=== PATIENT | female | born 1970 | race Caucasian/White ===

== ENCOUNTER 2017-11-12 16:49 | Emergency (ER) | payer MEDICARE, SELFPAY ==
[2017-11-12 16:50] VITALS: BP 95/79; PULSE 111; RESP 18; TEMP 36.3; O2SAT 99; BMI 38.2
--- NOTE | 2017-11-12 17:13 | ED.DCSUM_ITS ---
- ER Visit Summary Date of Service: 11/12/17 Chief Complaint: Left foot injury History of Present Illness: The patient is a 47 F presents to the emergency department with left foot injury. Patient states a few weeks ago, she was walking. She felt something pop in her foot. Since then, she said shooting pains in the top of her foot up the side of her leg. She states she has taken Aleve with little improvement. She does have a history of neuropathy. She did not fall. She denies other injury. She has no history of DVT. She denies any leg swelling or shortness of breath. Physical Examination: Exam is relatively unremarkable. Patient does have some slight ecchymosis on the dorsum of the foot over the fifth metatarsal. Pulses are normal. Sensation is diminished which is chronic given history of neuropathy. There is no ulceration. Calves are nontender. There is no swelling. There is no palpable cords. Test Results: [] Emergency Department Course and Treatment: Plain films were obtained of the foot. There is no evidence of acute fracture. There is questionable foreign body in between the first and second web space. I did reevaluate the skin. There is no evidence of puncture. There is no tenderness to palpation. The patient cannot recall any trauma. Without evidence of infection in definitive puncture, I do not feel it prudent to date through the patient's foot to evaluate for foreign body. I am going to have the patient follow-up with podiatry for reevaluation. She will be discharged with antispasmodics. She is comfortable this plan of care. Treatment Plan: [] Disposition: Discharge Impression: Left Foot sprain This note was generated with [employer] dictation software. It may contain incorrect words, spelling, and punctuation that were not noted in review of the chart prior to signing ED Disposition - Plan for ED Patient: Chief Complaint: Lower Extremity Injury Instructions: ED Sprain Foot Prescriptions: Cyclobenzaprine [Flexeril] 10 mg PO TID PRN #20 tab PRN Reason: Muscle Spasm Referrals: Duglas Mustafa DPM [STAFF PHYSICIAN] -
[2017-11-12 18:17] VITALS: PULSE 87; RESP 16; O2SAT 99
== END 2017-11-12 18:18 | disposition home or self-care (01) ==
PROVIDERS: Emergency Provider Emergency Medicine; Family Provider Family Medicine; PCP Family Medicine
DX: S93.602A Unspecified sprain of left foot, initial encounter (principal); X58.XXXA Exposure to other specified factors, initial encounter; Y93.01 Activity, walking, marching and hiking; Y92.9 Unspecified place or not applicable; Y99.9 Unspecified external cause status; G62.9 Polyneuropathy, unspecified; J44.9 Chronic obstructive pulmonary disease, unspecified; Z72.0 Tobacco use
CPT/HCPCS: 73630; 99282

== ENCOUNTER 2018-01-08 21:28 | Emergency (ER) | payer SELFPAY ==
[2018-01-08 21:29] VITALS: BP 107/82; PULSE 108; RESP 20; TEMP 36.6; O2SAT 98; BMI 38.1
[2018-01-08 21:50] LABS: Mucous, Urine 0 SEEN /hpf (<or=2+); Red Blood Cells-Urine 0 SEEN /hpf (0-5)
[2018-01-08 21:51] LABS: Color, Urine Yellow (Yellow); Glucose, Dipstick Normal (Normal); Ketone-Dipstick Negative (Negative); Leukocyte Esterase-Dipstick 100 /ul (Negative); Nitrite-Dipstick Negative (Negative); Occult Blood-Urine Negative /ul (Negative); Protein-Dipstick 15 mg/dl (Negative); Specific Gravity, Urine 1.025 (1.002-1.030); Urine Bilirubin Dipstick Negative (Negative); Urine Clarity Cloudy (Clear); Urine Urobilinogen 1 mg/dl (Normal)
[2018-01-08 21:57] LABS: Bacteria 2+ /hpf (None Seen); Squamous Epithelial Cells - UA 0-5 SEEN /hpf (5-10); White Blood Cells 0-5 SEEN /hpf (0-5)
--- NOTE | 2018-01-08 22:17 | CT_ITS ---
STUDY: CT ABDOMEN AND PELVIS WITHOUT CONTRAST REASON FOR EXAM: Female, 47 years old. Left flank pain RADIATION DOSAGE (If Supplied By Facility): CTDIvol = ( 18.00 ) mGy, DLP = ( 894.71 ) mGycm TECHNIQUE: Transaxial images were obtained from the lower chest to the upper thighs without oral contrast, and without intravenous contrast. Sagittal and coronal images were reconstructed. Individualized dose optimization techniques were used for this CT. COMPARISON: None. FINDINGS: The visualized lung bases are unremarkable. There is no pleural effusion. The heart is normal in size. The liver is unremarkable. The gallbladder is contracted. The spleen is unremarkable. The pancreas is unremarkable. The adrenal glands are unremarkable. The right kidney is unremarkable. There is no dilatation of the collecting system in the right kidney. The left kidney is unremarkable. There is no dilatation of the collecting system in the left kidney. The stomach is unremarkable. The small bowel is unremarkable. The colon is unremarkable. The appendix is visualized and appears normal. There are minimal scattered vascular calcifications. The IVC is unremarkable. The retroperitoneum is unremarkable. There is no free fluid in the abdomen. The urinary bladder is unremarkable. There is questionable absence of the uterus. Air is present in the cervix. There are no abnormal masses in the adnexal regions. There are small phleboliths scattered in the lower pelvis. The soft tissues are unremarkable. There are moderate degenerative disc changes in the low lumbar spine. CT/Abdomen/Pelvis without Cont IMPRESSION: There is no evidence of renal stones or urinary tract dilatation bilaterally. There are no acute bowel abnormalities. There is no ascites, free air or significant lymphadenopathy. There is air in the cervix of unknown etiology or significance. Correlate with possible recent intervention. The uterus appears absent. Electronically Signed: Kayla Raygoza MD at 0:36 EDT Tel Direct: [phone], Service support ,
--- NOTE | 2018-01-08 22:17 | EKG12_ITS ---
Test Reason : GEN ILL Blood Pressure : / mmHG Vent. Rate : 071 BPM Atrial Rate : 071 BPM P-R Int : 156 ms QRS Dur : 098 ms QT Int : 408 ms P-R-T Axes : 050 -20 041 degrees QTc Int : 443 ms Normal sinus rhythm Leftward axis Incomplete right bundle branch block Borderline ECG Confirmed by FATOUMATA CADE, AUDELIA ([id number]), editor continuity and script MIKEY VAUGHAN ([id number]) on 01/11/2018 11:20:53 AM Referred By: RUSSELL Confirmed By:AUDELIA HAM MD
[2018-01-08] MEDS: Ketorolac 30 MG/ML Syringe IV (22:48)
[2018-01-08] MEDS: Ondansetron 4 MG/2 ML Vial IV (22:48)
[2018-01-08 22:54] LABS: Absolute Lymphocyte Count 2.94 X10^3/ul (0.83-4.51); Absolute Neutrophil Count 6.2 X10^3/uL (2.0-7.7); Basophil# 0.02 X10^3/uL; Basophil% 0.2 % (0-1); Eosinophil# 0.28 X10^3/uL; Eosinophils% 2.8 % (0-5); Hematocrit 43.5 % (37-47); Hemoglobin 14.7 g/dl (12.0-15.0); Lymphocyte # 2.94 X10^3/ul (4.0); Lymphocyte % 29.3 % (19-41); Mean Corp Hgb Conc 33.8 g/gl (32-36); Mean Corpuscular Hgb 32.2 pg (27.0-32.0); Mean Corpuscular Volume 95.2 fL (81-99); Mean Platelet Vol. 10.8 fl (6.2-12.0); Monocyte# 0.54 X10^3/uL; Monocyte% 5.4 % (0-10); Neutrophil # 6.23 X10^3/uL (2.7-7.7); Neutrophil % 61.9 % (47-70); Platelet Count 266 K/mm3 (150-450); RBC Distribution Width CV 13.2 % (11.6-14.6); RBC Distribution Width SD 45.8 fl (35.1-43.9); Red Blood Count 4.57 M/mm3 (4.2-5.4); White Blood Count 10.1 K/mm3 (4.4-11.0)
[2018-01-08 22:55] LABS: POSITIVE COUNT NO; POSITIVE DIFFERENTIAL NO; POSITIVE MORPHOLOGY NO
[2018-01-08 23:06] LABS: Anion Gap 6 (5-15); BUN 17 mg/dL (7-18); BUN/Creat Ratio 15.5 RATIO (10-20); Calcium,Total 9.1 mg/dL (8.5-10.1); Chloride 105 mmol/L (98-107); EST Glomerular Filtration Rate 56 mL/min (>60); Est Glom Filt Rate - Afr Amer 68 mL/min (>60); Estimated Creatinine Clearance 53.42 ml/min; Glucose 101 mg/dL (74-106); Potassium 3.6 mmol/L (3.5-5.1); Sodium Level 139 mmol/L (136-145)
--- NOTE | 2018-01-08 23:30 | ED.RN ---
PT STATES TORADOL DID NOT HELP WITH PAIN AND IS REQUESTING OTHER PAIN MEDICATION. DR. WELLS AWARE.
[2018-01-08 23:37] VITALS: BP 103/70; PULSE 89; RESP 16; O2SAT 99
[2018-01-08 23:57] VITALS: BP 103/70; BP 104/71; BP 105/68; PULSE 77; PULSE 80; PULSE 81
--- NOTE | 2018-01-08 23:58 | ED.RN ---
PT VERY FRUSTRATED AND NOT COOPERATIVE WITH CARE STATING I SHOULD'VE NEVER COME HERE. PT REQUESTING SOMETHING TO DRINK. EXPLAINED TO PT THAT SHE IS NPO UNTIL CT RESULT IS AVAILABLE AND DOCTOR CLEARS HER TO EAT AND DRINK. PT DOES NOT VERBALIZE AN UNDERSTANDING AND IS CLEARLY VERY FRUSTRATED. DR. WELLS MADE AWARE.
--- NOTE | 2018-01-09 00:28 | ED.DCSUM_ITS ---
- ER Visit Summary Date of Service: 01/09/18 Chief Complaint: Dizziness, abdominal pain, nausea vomiting and diarrhea History of Present Illness: The patient is a 47 F who presents with dizziness abdominal pain nausea vomiting and diarrhea. She complains of abdominal pain in the left lower abdomen and radiating up to her left upper abdomen and back for about 2 weeks. She also complains of intermittent nausea vomiting diarrhea. She states that if she is just vomiting gastric juices. She is having more dry heaving than actual emesis. Today she began to feel dizzy. She describes this more as feeling off balance like vertigo. She denies syncope. No chest pain shortness of breath or fevers. Physical Examination: Initial heart rate 108 vitals otherwise normal Patient resting comfortably in bed Moist mucous membranes Heart regular rate and rhythm Lungs are clear Abdomen soft nondistended she does have left-sided abdominal tenderness which is greatest in the lower quadrant there is no guarding or rebound Test Results: EKG shows sinus rhythm at a rate of 71 with a right bundle branch block. CBC BMP normal. Urinalysis shows 100 leukocyte esterase but no WBCs. Orthostatic vital signs were negative. CT of the abdomen and pelvis showed air in the cervix of uncertain significance but no other acute abnormality no acute bowel abnormality. Hepatic function lipase are pending. Emergency Department Course and Treatment: Patient was initially treated with IV fluids Toradol and Zofran. I was notified by nursing staff that she was continued to complain of significant pain and requesting something further. At the time my reevaluation she is resting comfortably. Her abdomen remains soft. She does still have some left lower abdominal tenderness. I did add on hepatic function lipase given that CT of the abdomen does not show diverticulitis or another explanation of the patient's left lower quadrant abdominal pain. Patient turned over to the oncoming physician to check these lab results but if normal the patient will be discharged. Treatment Plan: [] Disposition: Pending hepatic function lipase results. Impression: Abdominal pain Dizziness This note was generated with [employer] dictation software. It may contain incorrect words, spelling, and punctuation that were not noted in review of the chart prior to signing ED Disposition - Plan for ED Patient: Chief Complaint: General Illness Referrals: Bird Dietrich MD [Primary Care Provider] -
[2018-01-09] MEDS: Morphine 4 MG/ML Syringe IV (00:35)
[2018-01-09 00:39] LABS: AST(SGOT) 8 U/L (15-37); Alanine Aminotransfer ALT/SGPT 15 U/L (13-56); Albumin, Serum 3.9 g/dL (3.2-5.0); Alkaline Phosphatase 81 U/L (45-117); Globulin 3.6 g/dL (2.2-4.2); Protein, Total 7.5 g/dL (6.4-8.2)
--- NOTE | 2018-01-09 00:40 | ED.DEP ---
ED Disposition - Plan for ED Patient: Chief Complaint: General Illness Instructions: ED Abdominal Pain Unkn Cause, ED Dizziness [facility] Referrals: Bird Dietrich MD [Primary Care Provider] -
[2018-01-09 00:47] LABS: Lipase 239 U/L (73-393)
--- NOTE | 2018-01-09 00:55 | ED.RN ---
PT MORPHINE GIVEN IV PUSH BY THIS RN, UNABLE TO DOCUMENT ON THE COMPUTER DUE TO USER ISSUE. WILL CORRECT SOON POSSIBLE.
[2018-01-09 01:00] VITALS: BP 130/92
== END 2018-01-09 01:01 | disposition home or self-care (01) ==
LOC: ED 22:25
PROVIDERS: Emergency Provider Emergency Medicine; Family Provider Family Medicine; PCP Family Medicine
DX: R10.32 Left lower quadrant pain (principal); R42 Dizziness and giddiness; I45.10 Unspecified right bundle-branch block; R11.2 Nausea with vomiting, unspecified; R19.7 Diarrhea, unspecified; J45.909 Unspecified asthma, uncomplicated; Z72.0 Tobacco use
CPT/HCPCS: 74176; 80048; 80076; 81001; 83690; 85025; 93005; 96374; 96375; 99285; A4216; J2405

== ENCOUNTER 2019-09-26 13:58 | Emergency (ER) | payer MEDICARE, MEDICAID, SELFPAY ==
[2019-09-26 13:59] VITALS: BP 145/89; PULSE 98; RESP 15; TEMP 36.6; O2SAT 97; BMI 40.4
--- NOTE | 2019-09-26 15:04 | ED.DCSUM_ITS ---
History of Present Illness Chief Complaint: Sore Throat Informant: Patient Narrative: Patient is a 49-year-old female with a past medical history of COPD who presents to the emergency department for multiple complaints. She felt like she has had a hoarse voice over the past year. No significant change recently that brought her in. She denies any difficulty handling secretions or swallowing solids. No shortness of breath or chest pain associated with it. No fevers or chills. She is a current every day smoker. He is also presenting for skin lesions. The worst is on the lower right rogers. He states that this has been itchy and she has been scratching at it. She also had a few lesions on her abdomen and also her buttocks. She states that they are in multiple stages of healing. She denies scratching at them. She tried Neosporin as well as a spray which has not been giving significant relief. No one else has a similar rash in the family. These have also been present for approximately a year. She also is requesting a note for an air conditioner as she feels like the heat is causing her to be more short of breath with her COPD. She does have a chronic cough that is no worse than normal. Denies any sputum production. Past Medical History - Allergies and Home Meds Allergies/Adverse Reactions: Allergies tramadol Allergy (Verified 09/26/19 14:03) Itching gabapentin Adverse Reaction (Verified 09/26/19 14:03) Nausea metronidazole [From Flagyl] Adverse Reaction (Verified 09/26/19 14:03) Upset Stomach Primary Care Physician: Bird Dietrich MD [Primary Care Provider] - Prior records reviewed: Yes Past Medical History: - - COPD Surgical History: - - surgery on her neck in 1990 or fracture of C6-7. has also had surgery on her wrist. Smoking Status: Current every day smoker Alcohol: None Drugs: None - Family History Maternal Family History: Reports: - - sttes her mother is still alive....denies hx of CAD Review of Systems All systems negative except as indicated General: Denies: Chills, Fever, Sweats Eyes: Denies: Visual changes - bilaterally, Diplopia ENT: Reports: Sore throat. Denies: Bilateral ear pain, Rhinorrhea Cardiovascular: Denies: Chest pain, Palpitations Respiratory: Denies: Dyspnea, Cough, Dyspnea on exertion Gastrointestinal: Denies: Abdominal pain, Nausea, Vomiting, Diarrhea Genitourinary: Denies: Dysuria, Hematuria, Frequency Musculoskeletal: Denies: Back pain, Extremity Pain Skin: Reports: Wounds. Denies: Rash Neurological: Denies: Headache, Weakness, Numbness Physical Exam Vital Signs/Narrative: Vital Signs Temp Pulse Resp BP Pulse Ox 09/26/19 13:59 97.9 F 98 15 145/89 H 97 Inital Vital Signs reviewed: Yes General: Well nourished, Well developed, No Acute Distress Head: Normocephalic, Atraumatic Eyes: Perrl, EOMI ENT: Moist mucous membranes, No rhinorrhea, TM's clear, - - Oropharynx is clear and moist. No mass or abscess visible. No crepitus on palpation. No obvious mass on palpation. No lymphadenopathy. Patient does have a slightly hoarse voice but has good laminar airflow. Neck: Supple, Nontender Cardiovascular: Regular rate, Regular rhythm, No murmurs Respiratory: No distress, CTA bilaterally, Chest nontender Abdomen: Soft, Nontender, Nondistended, Normal bowel sounds Back: Nontender, Normal Inspection Extremities: Nontender, No edema Skin: Normal color, - - Superficial ulcer to right anterior rogers. There are other well-healed areas over the abdomen and back. No drainage present. No overlying cellulitis. No sloughing of skin or petechiae present. Neurological: Alert, Oriented x3, Cranial nerves II-XII grossly intact, Normal Strength, Normal Sensation Psychological: Normal affect, Normal Mood Diagnostic/Tx/Re-eval - Medical Decision Making Patient presents to the emerge department for multiple complaints which have both been present over the past year. She does have a slightly hoarse voice but no issues handling secretions or swallowing. She has not any shortness of breath. We will make a referral for ear nose and throat given the chronicity of her symptoms. I do not believe that this is infectious. Could be related to her smoking history. As per the lesions on her lower extremity. Will recommend a mupirocin ointment. He is to follow-up with her PCP about both of these issues. If she develops any systemic symptoms she is to return to the emerge department immediately. She understands and is agreeable this plan. Will discharge home in stable condition. ED Disposition - Plan for ED Patient: Disposition: Home or Assisted Living Diagnosis: Hoarse voice quality, Skin lesion Instructions: ED Laryngitis Prescriptions: Mupirocin [Bactroban] 1 applic TOPICAL TID #1 tube Transmission Status: Pending to [facility] Referrals: Bird Dietrich MD [Primary Care Provider] - 3-5 Days Jake Jo MD [STAFF PHYSICIAN] - 3-5 Days
--- NOTE | 2019-09-26 15:26 | ED.RN ---
INFO GIVEN REGARDING COMMUNITY ACTION, PT REQUESTING ASSISTANCE WITH OBTAINING AN AIR CONDITIONER.
--- NOTE | 2019-09-26 19:35 | CM.ED ---
Social Work Referral obtained for community services. Resources provided to nursing staff as patient did not want to wait and speak with this director of social services. Per nursing staff patient states to be aware of how to obtain an A/C in the community and to be seeking a prescription. Nursing staff stating to have educated patient that patient will need to speak with primary care physician for this request. Elaine FARIAS, ANITA
== END 2019-09-26 15:28 | disposition home or self-care (01) ==
PROVIDERS: Emergency Provider Emergency Medicine; PCP Family Medicine
DX: L98.9 Disorder of the skin and subcutaneous tissue, unspecified (principal); R49.0 Dysphonia; J44.9 Chronic obstructive pulmonary disease, unspecified; F17.200 Nicotine dependence, unspecified, uncomplicated; Z88.1 Allergy status to other antibiotic agents; Z88.5 Allergy status to narcotic agent; Z88.8 Allergy status to other drugs, medicaments and biological substances
CPT/HCPCS: 99283

== ENCOUNTER 2019-10-10 18:54 | Emergency (ER) | payer MEDICARE, MEDICAID, SELFPAY ==
[2019-10-10 18:55] VITALS: BP 141/102; PULSE 96; RESP 18; TEMP 36.6; O2SAT 96; BMI 40.8
[2019-10-10 19:00] VITALS: BP 141/102; PULSE 96; RESP 18; TEMP 36.6; O2SAT 96
[2019-10-10] MEDS: Carbamide Peroxide 15 ML Bottle 5 DRP OTIC (19:05)
--- NOTE | 2019-10-10 19:09 | ED.VIS.GEN ---
History of Present Illness Chief Complaint: Ear Problem Informant: Patient Onset: Today Context: Sudden Onset Timing: Continuous Current Severity: Mild Maximum Severity: Mild Narrative: The patient is a 49-year-old female presents to the emergency department with wax impaction. Patient states that she had some wax in her ear. She was trying to remove it with a Q-tip. She ended up impacting the wax and has pushed it in. She states that she is been having decreased hearing. She denies any pain. Prior similar symptoms: No Recent Illness/Hospitalization: No Past Medical History - Allergies and Home Meds Allergies/Adverse Reactions: Allergies tramadol Allergy (Verified 10/10/19 18:56) Itching gabapentin Adverse Reaction (Verified 10/10/19 18:56) Nausea metronidazole [From Flagyl] Adverse Reaction (Verified 10/10/19 18:56) Upset Stomach Primary Care Physician: Bird Dietrich MD [Primary Care Provider] - Prior records reviewed: Yes Past Medical History: None Surgical History: - - surgery on her neck in 1990 or fracture of C6-7. has also had surgery on her wrist. Smoking Status: Current every day smoker - Family History Maternal Family History: Reports: - - sttes her mother is still alive....denies hx of CAD Review of Systems General: Denies: Chills, Fever, Sweats Eyes: Denies: Visual changes - bilaterally, Diplopia ENT: Reports: Right ear pain. Denies: Rhinorrhea, Sore throat Cardiovascular: Denies: Chest pain, Palpitations Respiratory: Denies: Dyspnea, Cough, Dyspnea on exertion Gastrointestinal: Denies: Abdominal pain, Nausea, Vomiting, Diarrhea, Melena, Hematochezia Genitourinary: Denies: Dysuria, Hematuria, Frequency Musculoskeletal: Denies: Back pain, Extremity Pain Skin: Denies: Rash, Wounds Neurological: Denies: Headache, Weakness, Numbness Physical Exam Vital Signs/Narrative: Vital Signs Temp Pulse Resp BP Pulse Ox 10/10/19 19:00 97.8 F 96 18 141/102 H 96 10/10/19 18:55 97.8 F 96 18 141/102 H 96 Inital Vital Signs reviewed: Yes General: Well nourished, Well developed, No Acute Distress Head: Normocephalic, Atraumatic Eyes: Perrl, EOMI ENT: Moist mucous membranes, No rhinorrhea, - - Right TM is impacted with cerumen. No mastoid tenderness. Neck: Supple, Nontender Cardiovascular: Regular rate, Regular rhythm, No murmurs Respiratory: No distress, CTA bilaterally, Chest nontender Abdomen: Soft, Nontender, Nondistended, Normal bowel sounds Back: Nontender, Normal Inspection Extremities: Nontender, No edema Skin: Normal color, No rash Neurological: Alert, Oriented x3, Cranial nerves II-XII grossly intact, Normal Strength, Normal Sensation Psychological: Normal affect, Normal Mood Diagnostic/Tx/Re-eval - Medical Decision Making Patient presents with cerumen impaction. Debrox was instilled in the ear. It was irrigated. The impaction was able to be removed. Ear was reexamined. TM is normal. The patient will be discharged home. Impression 1. Right cerumen impaction ED Disposition - Plan for ED Patient: Instructions: ED Cerumen Impaction Treated Referrals: Bird Dietrich MD [Primary Care Provider] -
== END 2019-10-10 19:56 | disposition home or self-care (01) ==
LOC: ED 19:48
PROVIDERS: Emergency Provider Emergency Medicine; PCP Family Medicine
DX: H61.21 Impacted cerumen, right ear (principal); F17.200 Nicotine dependence, unspecified, uncomplicated
CPT/HCPCS: 99283

== ENCOUNTER 2019-10-26 10:02 | Emergency (ER) | payer MEDICARE, MEDICAID, SELFPAY ==
[2019-10-24 14:39] VITALS: BMI 40.8
[2019-10-26 10:03] VITALS: BP 122/56; PULSE 69; RESP 15; TEMP 36.4; O2SAT 94; BMI 41.1
--- NOTE | 2019-10-26 10:35 | ED.DCSUM_ITS ---
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 Patient was seen in the outpatient surgical center 2 days ago. She is actually scheduled for endoscopy and colonoscopy due to reported blood in stool. She states that she normally takes Zofran. She states she had to leave work yesterday because she was not feeling herself. She states that she was nauseated and 2 episodes of emesis. She went to sleep, but woke up today and was still feeling symptomatic. She tried her Zofran again with little relief. She denies abdominal pain. She denies any fevers or chills. 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 has also had surgery on her wrist. Smoking Status: Current every day smoker - Family History Maternal Family History: Family History (Last Updated 10/24/19 @ 14:34 by Solange Carpenter) Father Hypertension Family History: Reports: - - sttes her mother is still alive....denies hx of CAD Review of Systems General: Denies: Chills, Fever, Sweats Eyes: Denies: Visual changes - bilaterally, Diplopia ENT: Denies: Rhinorrhea, Sore throat Cardiovascular: Denies: Chest pain, Palpitations Respiratory: Denies: Dyspnea, Cough, Dyspnea on exertion Gastrointestinal: Reports: Nausea, Vomiting. Denies: Abdominal pain, Diarrhea, Melena, Hematochezia Genitourinary: Denies: Dysuria, Hematuria, Frequency Musculoskeletal: Denies: Back pain, Extremity Pain Skin: Denies: Rash, Wounds Neurological: Denies: Headache, Weakness, Numbness Physical Exam Vital Signs/Narrative: Vital Signs Temp Pulse Resp BP Pulse Ox 10/26/19 10:03 97.5 F L 69 15 122/56 H 94 Inital Vital Signs reviewed: Yes General: Well nourished, Well developed, No Acute Distress Head: Normocephalic, Atraumatic Eyes: Perrl, EOMI ENT: Moist mucous membranes, No rhinorrhea Neck: Supple, Nontender Cardiovascular: Regular rate, Regular rhythm, No murmurs Respiratory: No distress, CTA bilaterally, Chest nontender Abdomen: Soft, Nontender, Nondistended, Normal bowel sounds Back: Nontender, Normal Inspection Extremities: Nontender, No edema Skin: Normal color, No rash Neurological: Alert, Oriented x3, Cranial nerves II-XII grossly intact, Normal Strength, Normal Sensation Psychological: Normal affect, Normal Mood Diagnostic/Tx/Re-eval Abnormal Lab Results 10/26/19 10/26/19 10/26/19 10:23 11:00 11:00 WBC 6.8 RBC 4.16 L Hgb 13.4 Hct 39.2 MCV 94.2 MCH 32.2 H MCHC 34.2 RDW Std Deviation 43.4 RDW Coeff of Brigid 12.5 Plt Count 229 MPV 10.9 Immature Gran % (Auto) 0.400 Neut % (Auto) 59.5 Lymph % (Auto) 32.0 [place] % (Auto) 5.6 Eos % (Auto) 1.9 Baso % (Auto) 0.6 Absolute Neuts (auto) 4.0 Absolute Lymphs (auto) 2.17 Nucleated RBC % 0 Sodium Cancelled Potassium Cancelled Chloride Cancelled Carbon Dioxide Cancelled Anion Gap Cancelled BUN Cancelled Creatinine Cancelled Estim Creat Clear Calc Cancelled Est GFR (MDRD) Af Amer Cancelled Est GFR (MDRD) Non-Af Cancelled BUN/Creatinine Ratio Cancelled Glucose Cancelled Calcium Cancelled Total Bilirubin Cancelled AST Cancelled ALT Cancelled Alkaline Phosphatase Cancelled Total Protein Cancelled Albumin Cancelled Globulin Cancelled Albumin/Globulin Ratio Cancelled Lipase Cancelled Urine Color Yellow Urine Clarity Sl. Cloudy Urine pH 6.0 Ur Specific [place] 1.010 Urine Protein Negative Urine Glucose (UA) Normal Urine Ketones Negative Urine Occult Blood Negative Urine Nitrite Negative Urine Bilirubin Negative Urine Urobilinogen Normal Ur Leukocyte Esterase Negative Urine RBC 0 SEEN Urine WBC 0 SEEN Ur Squamous Epith Cells 5-10 SEEN Urine Bacteria 1+ Urine Mucus 0 SEEN 10/26/19 11:45 WBC RBC Hgb Hct MCV MCH MCHC RDW Std Deviation RDW Coeff of Brigid Plt Count MPV Immature Gran % (Auto) Neut % (Auto) Lymph % (Auto) [place] % (Auto) Eos % (Auto) Baso % (Auto) Absolute Neuts (auto) Absolute Lymphs (auto) Nucleated RBC % Sodium 142 Potassium 3.7 Chloride 114 H Carbon Dioxide 23.0 Anion Gap 5 BUN 9 Creatinine 0.78 Estim Creat Clear Calc 73.68 Est GFR (MDRD) Af Amer 101 Est GFR (MDRD) Non-Af 83 BUN/Creatinine Ratio 11.6 Glucose 89 Calcium 8.7 Total Bilirubin 0.30 AST 12 L ALT 22 Alkaline Phosphatase 81 Total Protein 6.8 Albumin 3.7 Globulin 3.1 Albumin/Globulin Ratio 1.2 Lipase 118 Urine Color Urine Clarity Urine pH Ur Specific [place] Urine Protein Urine Glucose (UA) Urine Ketones Urine Occult Blood Urine Nitrite Urine Bilirubin Urine Urobilinogen Ur Leukocyte Esterase Urine RBC Urine WBC Ur Squamous Epith Cells Urine Bacteria Urine Mucus - Medical Decision Making The patient presents with nausea and vomiting. Her abdomen is soft and nontender. Metabolic work-up was pursued. Screening labs are unremarkable. She has not had fever. On reevaluation, she is feeling improved with Phenergan. At this point, given that she is safe for outpatient therapy. I will prescribe Phenergan with her Zofran. She will be discharged home. Impression 1. Nausea vomiting ED Disposition - Plan for ED Patient: Instructions: ED Nausea Vomiting Adult Prescriptions: proMETHazine tablet [Phenergan] 25 mg PO Q6H PRN PRN #10 tab PRN Reason: Nausea Prescription Printed Referrals: Bird Dietrich MD [Primary Care Provider] -
[2019-10-26 10:39] LABS: Mucous, Urine 0 SEEN /hpf (<or=2+); Red Blood Cells-Urine 0 SEEN /hpf (0-5); White Blood Cells 0 SEEN /hpf (0-5)
[2019-10-26 10:43] LABS: Color, Urine Yellow (Yellow); Glucose, Dipstick Normal (Normal); Ketone-Dipstick Negative (Negative); Leukocyte Esterase-Dipstick Negative /ul (Negative); Nitrite-Dipstick Negative (Negative); Occult Blood-Urine Negative /ul (Negative); Protein-Dipstick Negative (Negative); Urine Bilirubin Dipstick Negative (Negative); Urine Clarity Sl. Cloudy (Clear); Urine Urobilinogen Normal (Normal)
[2019-10-26 10:53] LABS: Bacteria 1+ /hpf (None Seen); Squamous Epithelial Cells - UA 5-10 SEEN /hpf (5-10)
[2019-10-26] MEDS: proMETHazine 25 MG/ML Syringe 12.5 MG IV (11:08)
[2019-10-26] MEDS: 0.9% Normal Saline 1,000 ML 1000 ML IV (11:09)
[2019-10-26 11:19] LABS: Absolute Lymphocyte Count 2.17 X10^3/uL (0.83-4.51); Basophil# 0.04 X10^3/uL; Basophil% 0.6 % (0-1); Eosinophil# 0.13 X10^3/uL; Eosinophils% 1.9 % (0-5); Hematocrit 39.2 % (37-47); Hemoglobin 13.4 g/dL (12.0-15.0); Lymphocyte # 2.17 X10^3/ul (4.0); Mean Corp Hgb Conc 34.2 g/dL (32-36); Mean Corpuscular Hgb 32.2 pg (27.0-32.0); Mean Corpuscular Volume 94.2 fL (81-99); Mean Platelet Vol. 10.9 fl (6.2-12.0); Monocyte# 0.38 X10^3/uL; Monocyte% 5.6 % (0-10); NRBC Flagged by Analyzer 0 % (0-5); Neutrophil # 4.04 X10^3/uL (2.7-7.7); Neutrophil % 59.5 % (47-70); Platelet Count 229 K/mm3 (150-450); RBC Distribution Width CV 12.5 % (11.6-14.6); RBC Distribution Width SD 43.4 fl (35.1-43.9); Red Blood Count 4.16 M/mm3 (4.2-5.4); White Blood Count 6.8 K/mm3 (4.4-11.0)
[2019-10-26 12:03] VITALS: BP 103/67
[2019-10-26] MEDS: Ketorolac 15 MG/ML Vial IV (12:20)
[2019-10-26 12:28] LABS: ALB/GLOB Ratio 1.2 RATIO (0.9-2.4); AST(SGOT) 12 U/L (15-37); Alanine Aminotransfer ALT/SGPT 22 U/L (13-56); Albumin, Serum 3.7 g/dL (3.2-5.0); Alkaline Phosphatase 81 U/L (45-117); Anion Gap 5 (5-15); BUN 9 mg/dL (7-18); BUN/Creat Ratio 11.6 RATIO (10-20); Calcium,Total 8.7 mg/dL (8.5-10.1); Chloride 114 mmol/L (98-107); Creatinine, Serum 0.78 mg/dL (0.55-1.02); EST Glomerular Filtration Rate 83 mL/min (>60); Est Glom Filt Rate - Afr Amer 101 mL/min (>60); Estimated Creatinine Clearance 73.68 ml/min; Globulin 3.1 g/dL (2.2-4.2); Glucose 89 mg/dL (74-106); Lipase 118 U/L (73-393); Potassium 3.7 mmol/L (3.5-5.1); Protein, Total 6.8 g/dL (6.4-8.2); Sodium Level 142 mmol/L (136-145)
[2019-10-26 12:39] VITALS: BP 104/65; PULSE 62; RESP 14
== END 2019-10-26 12:51 | disposition home or self-care (01) ==
LOC: ED 12:07
PROVIDERS: Emergency Provider Emergency Medicine; PCP Family Medicine
DX: R11.2 Nausea with vomiting, unspecified (principal); J44.9 Chronic obstructive pulmonary disease, unspecified; F17.200 Nicotine dependence, unspecified, uncomplicated; Z82.49 Family history of ischemic heart disease and other diseases of the circulatory system; Z88.1 Allergy status to other antibiotic agents; Z88.5 Allergy status to narcotic agent; Z88.8 Allergy status to other drugs, medicaments and biological substances
CPT/HCPCS: 80053; 81001; 83690; 85025; 96361; 96374; 96375; 99284; J7030; A4216

== ENCOUNTER 2019-11-14 07:49 | Day surgery (SDC) | payer MEDICARE, MEDICAID, SELFPAY ==
--- NOTE | 2019-10-24 03:11 | HP_ITS ---
Intake Vital Signs 10/24/19 BMI 40.8 10/24/19 Height 5 ft 4 in 10/24/19 Weight: 240 lb 10/24/19 BMI 41.1 10/24/19 BP 105/68 10/24/19 Blood Pressure Location Rt brachial 10/24/19 Position Sitting 10/24/19 Respiration 18 10/24/19 Pulse 85 10/24/19 Pulse Source Monitor 10/24/19 Temp 97.4 F L 10/24/19 Temp Source Temporal 10/24/19 Pulse Oximetry (%) 98 10/24/19 Oxygen Delivery Method room air Intake Visit Reasons: CSCOPE/ EGD Chief Complaint: EGD/C-scope consult Gift Manager Required: No Is patient in pain?: Yes Allergies tramadol Allergy (Verified 10/24/19 14:35) Itching gabapentin Adverse Reaction (Verified 10/24/19 14:35) Nausea metronidazole [From Flagyl] Adverse Reaction (Verified 10/24/19 14:35) Upset Stomach Medications Sertraline HCl [Zoloft] 50 mg PO DAILY 09/26/19 [History Confirmed 10/24/19] acetaminophen 650 mg tablet,extended release 650 mg PO Q12H 10/24/19 [History Confirmed 10/24/19] albuterol sulfate 90 mcg/actuation aerosol inhaler 2 puff INHALATION Q4H PRN g 10/24/19 [History Confirmed 10/24/19] albuterol sulfate 90 mcg/actuation aerosol inhaler 2 puff INHALATION Q4H PRN g 10/24/19 [History Confirmed 10/24/19] fluticasone 100 mcg-salmeterol 50 mcg/dose blistr powdr for inhalation 1 inh INHALATION BID 10/24/19 [History Confirmed 10/24/19] pregabalin 50 mg capsule 50 mg PO BID 10/24/19 [History Confirmed 10/24/19] [facility] Medical History (Updated 10/24/19 @ 15:[address] Vazquez Storey MD) History of crack cocaine use (Chronic) COPD (chronic obstructive pulmonary disease) (Chronic) Smoking addiction (Chronic) Depression (Chronic) Chronic back pain (Chronic) Morbid obesity (Chronic) Chest pain (Acute) Abdominal pain (Acute) Anxiety (Acute) Arthritis (Acute) Back problem (Acute) Black tarry stools (Acute) Constipation (Acute) Diarrhea (Acute) Surgical History (Updated 10/24/19 @ 14:34 by Solange Carpenter) History of hysterectomy (Acute) History of tonsillectomy (Acute) Hx of fusion of cervical spine (Acute) Family History (Updated 10/24/19 @ 14:34 by Solange Carpenter) Father Hypertension Social History (Updated 10/24/19 @ 15:[address] Vazquez Storey MD) Smoking Status: Current every day smoker alcohol intake: never substance use type: does not use HPI HPI HPI: YUDY GRANDA, is a 49 F who presents to the office today for HPI HPI Surgical H&P: Yes HPI: YUDY GRANDA, is a 49 F who presents to the office today for several issues. The patient has been having left lower quadrant pain for about 7 years. She is never had a colonoscopy in the past. She also has constipation issues and when her constipation resolves she has uncontrollable diarrhea. Patient also reports she has been having black tarry stools for the last 2 weeks. She was taken off her PPI about a month ago by Dr. Jo. ROS General General: No weight change, appetite, fatigue, colon cancer, breast cancer or weakness HEENT HEENT: No difficulty swallowing, eye injury, eye surgery, swollen glands or hoarseness Endo Endocrine: No thyroid disease, diabetes mellitus, thyroid cancer, Hair loss, heat intolerance or cold intolerance Skin Skin: No rash or changing moles Breast Breast: No left breast lump, right breast lump, nipple discharge, breast pain, abnormal mammogram, abnormal US or breast enlargement Musc Musculoskeletal: Yes back problems and arthritis; no rheumatoid arthritis, gout or joint pain Cardio Cardiovascular: No murmur, pacemaker, heart disease, atrial fibrillation, high blood pressure, heart attack, heart stent, palpitations, shortness of breat with exertion or chest pain Psych Psychiatric: Yes depression and anxiety; no hearing voices Resp Respiratory: Yes shortness of breath, No sleep apnea, No cough, Yes COPD, No asthma, No emphysema, No wheezing Gastro Gastrointestinal: Yes abdominal pain, Yes nausea or vomiting, Yes diarrhea, Yes constipation, No blood in stool, Yes acid reflux, No hemorrhoids, No ulcers, No gallbladder problem, Yes black,tarry stools Alon Hematologic: No blood thinners, No blood disorders, No bleeding, No anemia, No blood clots Neuro Neurologic: No system reviewed and no additional complaints, except as docu, No as per HPI, No abnormal walking, No abnormal hearing, No abnormal movements, No abnormal speech, No behavioral changes, No burning sensations, No confusion, No seizure-like activity, No unsteadiness, No dizziness, No localized weakness, No frequent falls, No headache(s), No lack of coordination, No loss of vision, No memory loss, No numbness, No other visual disturbances, No radiating pain, No restless legs, No sensory deficit, No fainting, No tingling, No tremor(s), No weakness, No other Exam Const General: cooperative Orientation: alert, oriented x3 Chest Breast Palpation: No nipple discharge Resp Effort & Inspection: normal respiratory effort Auscultation: clear to auscultation bilaterally Cardio Rate: regular rate Rhythm: regular rhythm Heart Sounds: no murmurs GI Inspection: non-distended Palpation: soft, tender in the LLQ Assessment & Plan Problems 1. Constipation, unspecified constipation type K59.00 2. Black tarry stools K92.1 3. Left lower quadrant pain R10.32 4. Smoking addiction F17.200 Plan The patient has been having constipation and left lower quadrant pain. She also reports last 2 weeks she has been having black tarry stools. I believe that when she was taken off of her PPI she developed gastritis or bleeding ulcers. The patient was taken off of her PPI 1 month ago. I recommended that she restart this but she says that Dr. Jo told her it would interfere with her Lyrica. I recommend EGD and colonoscopy. I explained endoscopy in detail to the patient. I explained the risks including but not limited to stroke or heart attack with anesthesia, perforation of the GI tract, bleeding, infection. I explained that any of these could necessitate further emergency surgery. The patient understands and all questions were answered sufficiently. The patient wishes to proceed with procedure. We discussed the current risks associated with COVID-19. While it is understood that there is a community spread of COVID-19, the risk of daina COVID-19 while at [facility] ([facility]) is very low; however, the risk cannot be completely mitigated because of the community spread of the disease. We discussed in detail the risk of exposure to and/or potential harm posed by the COVID-19 virus with having a surgery/procedure at this time versus the risk of delaying the surgery/procedure. It is not possible to know either the risk of delaying the surgery or procedure or chance of getting an infection with perfect accuracy, but a joint decision was made to proceed at this time with the scheduled surgery/procedure as indicated on the consent form. Patient was notified that we will need to comply with any screening or testing [facility] wishes to perform or that surgery may be delayed for any positive results. Vazquez Storey MD Pager: [facility] [address] [place] [address], [address] [place] [address] Office: Orders Orders: Colonoscopy Today K59.00, R10.32 EGD Today K92.1 Coding Level of Care Code Off vis,new,level 3 Diagnoses Constipation, unspecified constipation type K59.00 ??Constipation type: unspecified constipation type Black tarry stools K92.1 Left lower quadrant pain R10.32 Smoking addiction F17.200 10/24/19 1511 <Electronically signed by Vazquez lindsey MD> Date _ Vazquez Storey MD I have re-examined the patient. There are no clinical changes since date of exam.
[2019-10-24 14:39] VITALS: BMI 40.8
[2019-11-14 08:13] VITALS: BP 108/46; PULSE 60; RESP 18; TEMP 36.3; O2SAT 95; BMI 40.4
[2019-11-14] MEDS: Lactated Ringers 1,000 ML 100 ML IV (08:22)
--- NOTE | 2019-11-14 09:00 | IMM_PTH ---
PATIENT: YUDY GRANDA LOC: EN U#:[id number] AGE/SX: 49/F ROOM: RE11/14/[address]: Dr. Vazquez Storey MD : 1970 BED: DIS: 11/14/2019 SPEC #: [id number] RECD: 11/14/19 12:59 STATUS: ARSLAN REDonita #: [id number] CARLY: 11/14/19 09:[address]: Vazquez Storey DEPT: IMMUNOHISTOCHEMISTRY RECD BY: Bhavani Arenas ENTERED: 11/14/19 13:00 SP TYPE: IMMUNO OTHR DR: Dr. Bird Dietrich MD Tissues: Stomach, NOS Procedures: H Pylori (initial) PHYSICIAN & INSTITUTION [place] [id number] SPECIMEN INFORMATION: Tissue Source: Antrum biopsy Clinical Info: Constipation, black tarry stools, LLQ pain Specimen Number: [id number] CPT code: 64286 METHODOLOGY: Deparaffinized sections of prefer/formalin-fixed tissue or PAP/DQ stained slides are incubated with monoclonal/polyclonal antibodies/oligonucleotide probes. Localization is made via biotin free immunoperoxidase method. Appropriate controls are performed and reacted as expected. Results on target cell population are indicated in the following table: RESULTS: ANTIBODY / CLONE RESULT H Pylori (polyclonal) positive These tests were developed and their performance characteristics determined by [facility]. They may not have been cleared or approved by the U.S. Food and Drug Administration. The FDA has determined that such clearance or approval is not necessary. INTERPRETATION: Antrum, biopsy: Positive for Helicobacter pylori organisms. AM:crystal 11/15/19
--- NOTE | 2019-11-14 09:00 | EGD_PTH ---
PATIENT: YUDY GRANDA LOC: EN U#:[id number] AGE/SX: 49/F ROOM: RE11/14/[address]: Dr. Vazquez Storey MD : 1970 BED: DIS: 11/14/2019 SPEC #: [id number] RECD: 11/14/19 10:50 STATUS: ARSLAN PRUDENCIO #: [id number] CARLY: 11/14/19 09:[address]: Vazquez Storey DEPT: SURGICAL PATHOLOGY RECD BY: Bruno Valdez ENTERED: 11/14/19 11:45 SP TYPE: EGD BIOPSY OTHR DR: Dr. Bird Dietrich MD Tissues: Gastric mucous membrane Procedures: Surgery Specimen Level IV HEADER OPERATION: [place] [place] DIAGNOSIS: Constipation, black tarry stools, LLQ pain TISSUE SUBMITTED: Antrum biopsy for histo and H. pylori MICROSCOPIC DIAGNOSIS Gastric antrum, biopsy: Chronic gastritis. See comment. AM:crystal 11/15/19 COMMENT The results of immunohistochemistry for Helicobacter pylori will be reported separately ([id number]). MICROSCOPIC DESCRIPTION Slides are reviewed. GROSS DESCRIPTION Received in fixative is one container labeled with the patient's name and designated antrum biopsy. The specimen consists of one irregular fragment of light castro soft tissue that measures 0.6 x 0.3 x 0.1 cm. The specimen is totally submitted in one cassette. / SJ:crystal 11/14/19 TC:3 CPT: 07189
--- NOTE | 2019-11-14 10:39 | OP.EGD_ITS ---
Patient Name: Lucy Handley Procedure Date: 11/14/2019 9:53 AM Date of : 1970 Age: 49 Procedure: Upper GI endoscopy Indications: Epigastric abdominal pain, Iron deficiency anemia, Melena Providers: Vazquez Storey MD Referring MD: Bird Dietrich Medicines: Monitored Anesthesia Care Patient Profile: This is a 49 year old female. Refer to note in patient chart for documentation of history and physical. Complications: No immediate complications. Estimated blood loss: Minimal. Procedure: Pre-Anesthesia Assessment: - Prior to the procedure, a History and Physical was performed, and patient medications and allergies were reviewed. The patient's tolerance of previous anesthesia was also reviewed. The risks and benefits of the procedure and the sedation options and risks were discussed with the patient. All questions were answered, and informed consent was obtained. Prior Anticoagulants: The patient has taken no previous anticoagulant or antiplatelet agents. ASA Grade Assessment: II - A patient with mild systemic disease. After reviewing the risks and benefits, the patient was deemed in satisfactory condition to undergo the procedure. After obtaining informed consent, the endoscope was passed under direct vision. Throughout the procedure, the patient's blood pressure, pulse, and oxygen saturations were monitored continuously. The Endoscope was introduced through the mouth, and advanced to the second part of duodenum. The upper GI endoscopy was accomplished without difficulty. The patient tolerated the procedure well. Scope In: 10:11:14 AM Scope Out: 10:14:24 AM Total Procedure Duration Time 0 hours 3 minutes 10 seconds Findings: One non-bleeding cratered gastric ulcer with no stigmata of bleeding was found in the prepyloric region of the stomach. Biopsies were taken with a cold forceps for Helicobacter pylori testing. The esophagus was normal. The examined duodenum was normal. Impression: - Non-bleeding gastric ulcer with no stigmata of bleeding. Biopsied. - Normal esophagus. - Normal examined duodenum. Recommendation: - Await pathology results. - Discharge patient to home. - Resume previous diet. - Continue present medications. Procedure Code(s): --- Professional --- 06911, Esophagogastroduodenoscopy, flexible, transoral; with biopsy, single or multiple Diagnosis Code(s): --- Professional --- K25.9, Gastric ulcer, unspecified as acute or chronic, without hemorrhage or perforation R10.13, Epigastric pain D50.9, Iron deficiency anemia, unspecified K92.1, Melena (includes Hematochezia) CPT copyright 2017 [employer]. All rights reserved. The codes documented in this report are preliminary and upon stud beef cattle farmer review may be revised to meet current compliance requirements. Vazquez Storey MD 11/14/2019 10:39:19 AM This report has been signed electronically. Number of Addenda: 0 Note Initiated On: 11/14/2019 9:53 AM
--- NOTE | 2019-11-14 10:39 | OP.CCLET_ITS ---
11/14/2019 Bird Dietrich Re : Upper GI endoscopy procedure for Lucy Handley Dear Kaur This procedure was performed on Thursday, November 14, 2019. My impressions and recommendations are as follows: Impressions : - Non-bleeding gastric ulcer with no stigmata of bleeding. Biopsied. - Normal esophagus. - Normal examined duodenum. Recommendations : - Await pathology results. - Discharge patient to home. - Resume previous diet. - Continue present medications. My findings are described in the full procedure note, which is enclosed. If I can be of further assistance, please feel free to contact me at Doctor phone number(s): , Work: . Sincerely, Vazquez Storey MD 11/14/2019 10:39:19 AM This report has been signed electronically.
[2019-11-14 10:40] VITALS: BP 102/71; BP 108/46; PULSE 84; RESP 14; TEMP 36.7; O2SAT 95
--- NOTE | 2019-11-14 10:41 | OP.CCLET_ITS ---
11/14/2019 Bird Dietrich Re : Colonoscopy procedure for Lucy Handley Dear Kaur This procedure was performed on Thursday, November 14, 2019. My impressions and recommendations are as follows: Impressions : - The entire examined colon is normal on direct and retroflexion views. - No specimens collected. Recommendations : - Discharge patient to home. - Resume previous diet. - Continue present medications. - Repeat colonoscopy in 10 years for screening purposes. My findings are described in the full procedure note, which is enclosed. If I can be of further assistance, please feel free to contact me at Doctor phone number(s): , Work: . Sincerely, Vazquez Storey MD 11/14/2019 10:40:50 AM This report has been signed electronically.
--- NOTE | 2019-11-14 10:41 | OP.COLON_ITS ---
Patient Name: Lucy Handley Procedure Date: 11/14/2019 10:14 AM Date of : 1970 Age: 49 Procedure: Colonoscopy Indications: Abdominal pain in the left lower quadrant, Constipation Providers: Vazquez Storey MD Referring MD: Bird Dietrich Medicines: Monitored Anesthesia Care Patient Profile: This is a 49 year old female. Refer to note in patient chart for documentation of history and physical. Last Colonoscopy: none. The patient's first colonoscopy is today. Complications: No immediate complications. Procedure: Pre-Anesthesia Assessment: - Prior to the procedure, a History and Physical was performed, and patient medications and allergies were reviewed. The patient's tolerance of previous anesthesia was also reviewed. The risks and benefits of the procedure and the sedation options and risks were discussed with the patient. All questions were answered, and informed consent was obtained. Prior Anticoagulants: The patient has taken no previous anticoagulant or antiplatelet agents. ASA Grade Assessment: II - A patient with mild systemic disease. After reviewing the risks and benefits, the patient was deemed in satisfactory condition to undergo the procedure. After I obtained informed consent, the scope was passed under direct vision. Throughout the procedure, the patient's blood pressure, pulse, and oxygen saturations were monitored continuously. The Colonoscope was introduced through the anus and advanced to the cecum, identified by appendiceal orifice and ileocecal valve. The colonoscopy was performed without difficulty. The patient tolerated the procedure well. The quality of the bowel preparation was good. Scope In: 10:16:12 AM Scope Withdrawal Time 0 hours 6 minutes 4 seconds Scope Out: 10:29:41 AM Total Procedure Duration Time 0 hours 13 minutes 29 seconds Findings: The entire examined colon appeared normal on direct and retroflexion views. Impression: - The entire examined colon is normal on direct and retroflexion views. - No specimens collected. Recommendation: - Discharge patient to home. - Resume previous diet. - Continue present medications. - Repeat colonoscopy in 10 years for screening purposes. Procedure Code(s): --- Professional --- 72562, Colonoscopy, flexible; diagnostic, including collection of specimen(s) by brushing or washing, when performed (separate procedure) Diagnosis Code(s): --- Professional --- R10.32, Left lower quadrant pain K59.00, Constipation, unspecified CPT copyright 2017 [employer]. All rights reserved. The codes documented in this report are preliminary and upon associate application developer review may be revised to meet current compliance requirements. Vazquez Storey MD 11/14/2019 10:40:50 AM This report has been signed electronically. Number of Addenda: 0 Note Initiated On: 11/14/2019 10:14 AM
[2019-11-14 10:45] VITALS: BP 108/46; BP 99/72; PULSE 83; RESP 16; O2SAT 92
[2019-11-14 10:50] VITALS: BP 103/59; BP 108/46; PULSE 75; RESP 16; O2SAT 92
[2019-11-14 10:55] VITALS: BP 106/68; BP 108/46; PULSE 75; RESP 16; TEMP 36.2; O2SAT 93
[2019-11-14 11:23] VITALS: BP 108/46
== END 2019-11-14 11:39 | disposition home or self-care (01) ==
LOC: EN 07:49 → AC 07:50
PROVIDERS: Anesthesiology; PCP Family Medicine; Referring Provider Family Medicine; Visit Provider Surgery
PROC: 0DJD8ZZ Inspection of Lower Intestinal Tract, Via Natural or Artificial Opening Endoscopic (ICD-10-PCS; CPT 45378; principal; 2019-11-14 08:55)
DX: K25.4 Chronic or unspecified gastric ulcer with hemorrhage (principal); D50.9 Iron deficiency anemia, unspecified; R10.13 Epigastric pain; Z11.59 Encounter for screening for other viral diseases; J44.9 Chronic obstructive pulmonary disease, unspecified; E66.01 Morbid (severe) obesity due to excess calories; F41.9 Anxiety disorder, unspecified; G89.29 Other chronic pain; M19.90 Unspecified osteoarthritis, unspecified site; F17.200 Nicotine dependence, unspecified, uncomplicated; K59.00 Constipation, unspecified; R10.32 Left lower quadrant pain; R19.7 Diarrhea, unspecified; Z79.899 Other long term (current) drug therapy; Z79.51 Long term (current) use of inhaled steroids; Z68.41 Body mass index [BMI] 40.0-44.9, adult
CPT/HCPCS: 43239; 45378; 87635; 88305; 88342; 94799; J7120; J2405; U0003

== ENCOUNTER 2019-11-15 17:48 | Emergency (ER) | payer MEDICARE, MEDICAID, SELFPAY ==
[2019-11-14 08:13] VITALS: BMI 40.4
[2019-11-15 17:49] VITALS: BP 140/78; PULSE 97; RESP 16; TEMP 36.6; O2SAT 97; BMI 41.5
--- NOTE | 2019-11-15 18:12 | RAD_ITS ---
STUDY: X-RAY - RIGHT FOOT CLINICAL: Female, 49 years old. RIGHT ANKLE PAIN X1 WEEK. ANKLE and quot;GAVE OUT and quot; TODAY TECHNIQUE: 3 view(s) of the foot. COMPARISON: None. FINDINGS: Normal talus,, and tarsal bones. Large plantar calcaneal spur Normal visualized subtalar, talonavicular, calcaneocuboid, tarsal and tarsometatarsal articulations. Normal metatarsi. Normal metatarsophalangeal joint of the great toe. Normal tibial and fibular sesamoid bones. Normal interphalangeal joint of the great toe. Normal phalanges of the great toe. Normal second through fifth metatarsophalangeal joints. Normal interphalangeal joints and phalanges of the lesser toes. The soft tissue structures are unremarkable. RAD/Foot min 3 Views IMPRESSION: No acute fracture or other significant bony pathology Electronically Signed: Duglas Stewart MD at 18:41 EDT , Service support ,
[2019-11-15] MEDS: HYDROcodone Bitartrate/Apap 5/325 Tablet PO (18:20)
--- NOTE | 2019-11-15 18:25 | RAD_ITS ---
STUDY: X-RAY - RIGHT ANKLE REASON FOR EXAM: Female, 49 years old. RIGHT ANKLE PAIN X1 WEEK. ANKLE and quot;GAVE OUT and quot; TODAY TECHNIQUE: view(s) of the ankle. COMPARISON: None. FINDINGS: Normal visualized distal tibia and fibula. Normal medial and lateral malleoli. Normal tibiotalar articulation and ankle mortise. Normal visualized talus . Large plantar calcaneal spur is noted The visualized subtalar, talonavicular, calcaneocuboid and tarsal articulations are normal. Soft tissue swelling overlying the lateral malleolus RAD/Ankle min 3 Views IMPRESSION: Lateral malleolus sprain. No evidence for acute fracture Electronically Signed: Duglas Stewart MD at 18:41 EDT , Service support ,
--- NOTE | 2019-11-15 19:20 | ED.VISSUMM ---
- ER Visit Summary Date of Service: 11/15/19 Chief Complaint: Pain History of Present Illness: The patient is a 49 F with pain to her right ankle for days. It was worse today when she stepped in a parking lot, it rolled and gave out. Physical Examination: Tender to palpation of the right Achilles insertion near her heel. Normal Castro test. No other abnormal findings. Neurovascular intact. Calf is soft. Test Results: X-rays of her foot and ankle show lateral malleolus sprain. Emergency Department Course and Treatment: Patient received pain medicine while awaiting results. X-rays concerning for sprain. She has pain also at her Achilles tendon insertion at the heel. Does not appear to be a rupture. Nothing to suggest tendinitis otherwise. Patient was placed in Aircast, crutches. Use anti-inflammatories for pain. Rest, ice, elevate. Her PCP was going to refer her to podiatry, and so I gave her a referral today. Treatment Plan: As above Disposition: Discharge Impression: Right ankle pain This note was generated with [employer] dictation software. It may contain incorrect words, spelling, and punctuation that were not noted in review of the chart prior to signing ED Disposition - Plan for ED Patient: Referrals: Bird Dietrich MD [Primary Care Provider] -
--- NOTE | 2019-11-15 19:22 | ED.DEP ---
ED Disposition - Plan for ED Patient: Instructions: ED Sprain Ankle Prescriptions: Naproxen [Naprosyn] 500 mg PO BID PRN #20 tab Prescription Printed Referrals: Sophie Helm DPM [STAFF PHYSICIAN] -
== END 2019-11-15 19:44 | disposition home or self-care (01) ==
LOC: ED 18:29
PROVIDERS: Emergency Provider Emergency Medicine; PCP Family Medicine
DX: M25.571 Pain in right ankle and joints of right foot (principal); Z72.0 Tobacco use
CPT/HCPCS: 73610; 73630; 99283

== ENCOUNTER 2019-11-29 15:55 | Emergency (ER) | payer MEDICARE, MEDICAID, SELFPAY ==
[2019-11-29 15:57] VITALS: BP 153/77; PULSE 118; RESP 18; TEMP 36.8; O2SAT 99; BMI 41.1
--- NOTE | 2019-11-29 16:42 | ED.DCSUM_ITS ---
- ER Visit Summary Date of Service: 11/29/19 Chief Complaint: [Muscle pain] History of Present Illness: The patient is a 49 F [resents to the emergency department with complaint of pain in her muscles that started 3 days ago. Patient believes it is related to some of the medication she started for treatment of H. pylori. Patient spoke with the pharmacist and was told that it could be the Levaquin that she is currently on. Patient has been on Biaxin, lansoprazole, and Levaquin for about a week and her body aches started about 3 days ago. Patient denies any pain in her back. Pain is mostly in the arms and legs. Patient describes some dark urine in the mornings. She denies fever or recent illness. Patient has history of COPD, chronic back pain issues, and anxiety.] Physical Examination: [HEENT-PERRLA, EOMI. Cranial nerves II through XII grossly intact. TMs clear. Mucous membranes moist. No adenopathy. Cardiovascular-regular rate and rhythm without murmur or ectopy Lungs-clear to auscultation, chest wall stable without crepitus or subcu emphysema Abdomen-normoactive bowel sounds, soft, nontender, no rebound or rigidity, no peritoneal signs. Extremities-intact ?4, normal range of motion, normal pulses, atraumatic] Test Results: [BC with differential obtained showed a slight elevated white count of 11.1, hemoglobin 13.6, hematocrit 40, placed to 66. Chemistries unremarkable. LFTs were normal. CPK was 113.] Emergency Department Course and Treatment: [Patient had an IV line established on arrival and was given normal saline. I attempted to contact patient's surgeon Dr. Vazquez Jorge however he was not medical oncology physician and I spoke with surgeon covering at this time Dr. Boone Durham. I felt patient needed to discontinue at least the Levaquin as it is known to cause body aches and muscle pain as well as rhabdomyolysis in some people. I was told instructed patient to discontinue all her medications related to her EGD and H. pylori. Patient does have history of a peptic ulcer and I did instruct her to continue the lansoprazole. She is to call her surgeon's office tomorrow for further instructions.] Treatment Plan: [Patient will be given a prescription for [place] for pain.] Disposition: [Discharged home in stable condition] Impression: [Medication side effect Myalgias] This note was generated with [employer] dictation software. It may contain incorrect words, spelling, and punctuation that were not noted in review of the chart prior to signing ED Disposition - Plan for ED Patient: Referrals: Bird Dietrich MD [Primary Care Provider] -
[2019-11-29] MEDS: 0.9% Normal Saline 1,000 ML 150 ML IV (16:45)
[2019-11-29 16:50] LABS: Absolute Lymphocyte Count 2.98 X10^3/uL (0.83-4.51); Basophil# 0.06 X10^3/uL; Basophil% 0.5 % (0-1); Eosinophil# 0.23 X10^3/uL; Eosinophils% 2.1 % (0-5); Hematocrit 39.5 % (37-47); Hemoglobin 13.6 g/dL (12.0-15.0); Lymphocyte # 2.98 X10^3/ul (4.0); Lymphocyte % 26.9 % (19-41); Mean Corp Hgb Conc 34.4 g/dL (32-36); Mean Corpuscular Hgb 32.4 pg (27.0-32.0); Mean Platelet Vol. 10.5 fl (6.2-12.0); Monocyte# 0.74 X10^3/uL; Monocyte% 6.7 % (0-10); NRBC Flagged by Analyzer 0 % (0-5); Neutrophil # 7.04 X10^3/uL (2.7-7.7); Neutrophil % 63.4 % (47-70); Platelet Count 266 K/mm3 (150-450); RBC Distribution Width CV 12.5 % (11.6-14.6); RBC Distribution Width SD 43.2 fl (35.1-43.9); White Blood Count 11.1 K/mm3 (4.4-11.0)
[2019-11-29 17:10] LABS: CPK Total, Creatine Kinase 113 U/L (26-192)
[2019-11-29 17:17] LABS: ALB/GLOB Ratio 1.2 RATIO (0.9-2.4); AST(SGOT) 22 U/L (15-37); Alanine Aminotransfer ALT/SGPT 34 U/L (13-56); Albumin, Serum 4.1 g/dL (3.2-5.0); Alkaline Phosphatase 89 U/L (45-117); Anion Gap 6 (5-15); BUN 16 mg/dL (7-18); BUN/Creat Ratio 18.7 RATIO (10-20); Calcium,Total 9.4 mg/dL (8.5-10.1); Chloride 109 mmol/L (98-107); Creatinine, Serum 0.86 mg/dL (0.55-1.02); EST Glomerular Filtration Rate 74 mL/min (>60); Est Glom Filt Rate - Afr Amer 90 mL/min (>60); Estimated Creatinine Clearance 66.83 ml/min; Globulin 3.4 g/dL (2.2-4.2); Glucose 112 mg/dL (74-106); Potassium 3.5 mmol/L (3.5-5.1); Protein, Total 7.5 g/dL (6.4-8.2); Sodium Level 140 mmol/L (136-145)
--- NOTE | 2019-11-29 17:59 | ED.DEP ---
ED Disposition - Plan for ED Patient: Instructions: ED Drug React Adverse Other Prescriptions: Hydrocodone Bitart/Apap 5-325 [[place] 5MG-325MG] 1 tab PO Q4H PRN PRN 2 Days #10 tab PRN Reason: Pain Prescription Printed Referrals: Bird Dietrich MD [Primary Care Provider] - Vazquez Storey MD [STAFF PHYSICIAN] - 1 Day
[2019-11-29 18:03] VITALS: BP 113/72; PULSE 79; RESP 18; O2SAT 98
== END 2019-11-29 18:11 | disposition home or self-care (01) ==
LOC: ED 16:50
PROVIDERS: Emergency Provider Emergency Medicine; PCP Family Medicine
DX: M79.10 Myalgia, unspecified site (principal); F41.9 Anxiety disorder, unspecified; J44.9 Chronic obstructive pulmonary disease, unspecified; G89.29 Other chronic pain; M54.9 Dorsalgia, unspecified
CPT/HCPCS: 80053; 82550; 85025; 96360; 96361; 99283; J7030; A4216

== ENCOUNTER 2019-12-06 10:07 | Emergency (ER) | payer MEDICARE, MEDICAID, SELFPAY ==
[2019-12-06 10:09] VITALS: BP 141/65; PULSE 70; RESP 16; TEMP 36.2; O2SAT 98; BMI 41.1
--- NOTE | 2019-12-06 10:54 | RAD_ITS ---
STUDY: X-RAY - RIGHT KNEE REASON FOR EXAM: Female, 49 years old. Injury, pain, swelling TECHNIQUE: 4 view(s) of the knee. COMPARISON: None. FINDINGS: Normal visualized distal femur. Normal visualized proximal tibia and fibula. Normal proximal tibiofibular articulation. There is mild degenerative arthrosis of the medial femorotibial compartment. Normal lateral femorotibial compartment. There is mild degenerative arthrosis of the patellofemoral articulation. Small joint effusion. Prepatellar soft tissue swelling. RAD/Knee 4 or More Views IMPRESSION: Degenerative arthrosis. Small joint effusion and prepatellar soft tissue swelling. Electronically Signed: Bobby Rubio, at 11:06 EDT , Service support ,
--- NOTE | 2019-12-06 11:18 | ED.DCSUM_ITS ---
- ER Visit Summary Date of Service: 12/06/19 Chief Complaint: Right knee pain History of Present Illness: The patient is a 49 F who presents with right knee pain that began last night. Patient states she tripped over her cat and fell onto her right knee. Patient states the pain is worse with movement. Patient states pain is over the anterior aspect of the right knee. Patient describes the pain is sharp. Patient denies any paresthesias or weakness. Patient denies any head injury or loss of consciousness. Patient denies any other injuries. Physical Examination: Vital signs are stable. Patient is afebrile. Patient is in no acute distress. Musculoskeletal examination revealed tenderness over the anterior aspect of the right knee. There is some mild edema and ecchymosis. There is no bony crepitance or step-off. Extensor mechanism is intact. Range of motion was limited in all motions of the right knee secondary to pain. There is no laxity appreciated. There is some guarding on examination. Sensation was intact to light touch bilaterally in the lower extremities. Strength is 5/5 bilateral in the lower extremities. Pedal pulses are equal bilaterally. Test Results: X-rays of the right knee were obtained. There is no acute fracture. There is a small joint effusion and some prepatellar soft tissue swelling. These were interpreted by the radiologist and reviewed by myself. Emergency Department Course and Treatment: Patient was given a dose of [place] here and a prescription for a short course of [place]. Patient was instructed to ice and elevate the right knee. Patient was given restrictions for work. Patient was instructed to follow-up with her primary care physician in 5 to 7 days. Patient understood and was agreeable with the plan. All questions were answered. Disposition: Discharge home Impression: Right knee contusion This note was generated with [employer] dictation software. It may contain incorrect words, spelling, and punctuation that were not noted in review of the chart prior to signing ED Disposition - Plan for ED Patient: Disposition: Home or Assisted Living Diagnosis: Contusion of right knee Instructions: ED EXTREMITY CONTUSION Lower Prescriptions: Hydrocodone Bitart/Apap 5-325 [[place] 5MG-325MG] 1 tab PO Q6H PRN PRN 3 Days #10 tab PRN Reason: Pain Prescription Printed Referrals: Bird Dietrich MD [Primary Care Provider] -
[2019-12-06] MEDS: HYDROcodone Bitartrate/Apap 5/325 Tablet PO (11:33)
== END 2019-12-06 11:35 | disposition home or self-care (01) ==
PROVIDERS: Emergency Provider Emergency Medicine; PCP Family Medicine
DX: S80.01XA Contusion of right knee, initial encounter (principal); W01.0XXA Fall on same level from slipping, tripping and stumbling without subsequent striking against object, initial encounter; Y93.9 Activity, unspecified; Y92.9 Unspecified place or not applicable; Y99.9 Unspecified external cause status; F17.210 Nicotine dependence, cigarettes, uncomplicated; G62.9 Polyneuropathy, unspecified
CPT/HCPCS: 73564; 99283

== ENCOUNTER 2019-12-24 14:50 | Emergency (ER) | payer MEDICARE, MEDICAID, SELFPAY ==
[2019-12-24 14:50] VITALS: BP 133/75; PULSE 95; RESP 18; TEMP 36.2; O2SAT 98; BMI 41.1
[2019-12-24 14:56] VITALS: BP 133/75; PULSE 95; RESP 18; TEMP 36.2; O2SAT 98
--- NOTE | 2019-12-24 15:21 | ED.VIS.GEN ---
History of Present Illness Chief Complaint: General Illness Informant: Patient Narrative: Patient presents with right foot pain which is the primary concern. She has had a wound over the second digit for over a week. She is also complaining of generalized fatigue for the past few days. She has no fevers or chills she has no polyuria or polydipsia she has no chest pain or shortness of breath. She was recently diagnosed with H. pylori but could not finished her triple antibiotic due to side effects. Past Medical History - Allergies and Home Meds Allergies/Adverse Reactions: Allergies tramadol Allergy (Verified 12/24/19 14:55) Itching gabapentin Adverse Reaction (Verified 12/24/19 14:55) Nausea metronidazole [From Flagyl] Adverse Reaction (Verified 12/24/19 14:55) Upset Stomach Primary Care Physician: Bird Dietrich MD [Primary Care Provider] - Past Medical History: - - Hypertension, morbid obesity, smoker, she denies being a diabetic. Surgical History: - - surgery on her neck in 1990 or fracture of C6-7. has also had surgery on her wrist. Smoking Status: Current every day smoker - Family History Maternal Family History: Family History (Last Updated 10/24/19 @ 14:34 by Solange Carpenter) Father Hypertension Family History: Reports: - - sttes her mother is still alive....denies hx of CAD Review of Systems General: Denies: Fever ENT: Denies: Rhinorrhea, Sore throat Cardiovascular: Denies: Chest pain, Palpitations Respiratory: Denies: Dyspnea, Cough Gastrointestinal: Denies: Abdominal pain, Nausea, Vomiting Genitourinary: Denies: Dysuria Musculoskeletal: Reports: - - Right foot wound as in HPI Skin: Reports: Wounds Neurological: Denies: Headache, Weakness, Parasthesia Endocrine: Denies: Polyuria, Polydipsia Hematologic: Denies: Easy bruising, Easy bleeding Physical Exam Vital Signs/Narrative: Vital Signs Temp Pulse Resp BP Pulse Ox 12/24/19 14:56 97.2 F L 95 18 133/75 H 98 12/24/19 14:50 97.2 F L 95 18 133/75 H 98 General: - - Patient is relatively comfortable in bed she is lucid coherent and she is alert she is not somnolent. She is obese but does not appear ill and does not appear in any distress she is speaking with her boyfriend quite comfortably. Eyes: Perrl, EOMI ENT: Moist mucous membranes Neck: Supple, Nontender Cardiovascular: Regular rate, Regular rhythm Respiratory: No distress, CTA bilaterally, Chest nontender Abdomen: Soft, Nontender Back: Nontender, Normal Inspection Extremities: - - There is a wound on the second digit of her toe, there is some desquamation and erythema. There is no lymphangitic streaking of the dorsum or plantar side of the foot. There is no expansion of the cellulitis it is strictly on the second digit and there is a kissing wound on the ulnar side of the great toe. Neurological: Normal Strength, Normal Sensation Diagnostic/Tx/Re-eval - Medical Decision Making Patient has an elevated CRP but normal ESR and white count. There is no evidence of osteomyelitis at this time although she certainly could have early osteomyelitis. I discussed the patient with podiatry, Dr. Helm, and after receiving IV antibiotics in the emergency department she will be placed on oral antibiotics and be seen in the clinic in the next 2 days. I believe this is a reasonable action, if the wound gets worse, if there is streaking or the cellulitis is progressing she needs to return she understands that very clearly. ED Disposition - Plan for ED Patient: Disposition: Home or Assisted Living Diagnosis: Toe infection Instructions: Wound Care, ED Wound Care Prescriptions: Clindamycin [Cleocin] 300 mg PO 4X/DAY #80 cap Transmission Status: Pending to [facility] #30 Oxycodone HCl/Acetaminophen [Percocet 5/325] 1 tablet PO Q6H PRN PRN 3 Days #12 tablet PRN Reason: Pain Transmission Status: Sent to [facility] #30 Referrals: Sophie Helm DPM [STAFF PHYSICIAN] - 2 Days
--- NOTE | 2019-12-24 15:25 | RAD_ITS ---
STUDY: X-RAY - RIGHT FOOT CLINICAL: Female, 49 years old. Swollen second digit started Wednesday. TECHNIQUE: 3 view(s) of the foot. COMPARISON: 11/15/2019. FINDINGS: Stable large plantar spur, otherwise negative talus, calcaneus, and tarsal bones. Normal visualized subtalar, talonavicular, calcaneocuboid, tarsal and tarsometatarsal articulations. Normal metatarsi. Normal metatarsophalangeal joint of the great toe. Normal tibial and fibular sesamoid bones. Normal interphalangeal joint of the great toe. Normal phalanges of the great toe. Normal second through fifth metatarsophalangeal joints. Normal interphalangeal joints and phalanges of the lesser toes. The soft tissue structures are unremarkable. There is no demonstrated fracture. RAD/Foot min 3 Views IMPRESSION: No change and no definite acute abnormality. Electronically Signed: Vinnie Serrato MD at 16:27 EDT , Service support ,
[2019-12-24] MEDS: Morphine 4 MG/ML Syringe IV (15:30)
[2019-12-24] MEDS: Ondansetron 4 MG/2 ML Vial IV (15:30)
[2019-12-24 15:41] LABS: Erythrocyte Sedimentation Rate 21 mm/hr (0-30)
[2019-12-24 15:45] LABS: Absolute Lymphocyte Count 2.35 X10^3/uL (0.83-4.51); Absolute Neutrophil Count 5.5 X10^3/uL (2.0-7.7); Basophil# 0.07 X10^3/uL; Basophil% 0.8 % (0-1); Eosinophil# 0.31 X10^3/uL; Eosinophils% 3.4 % (0-5); Hematocrit 40.6 % (37-47); Hemoglobin 13.4 g/dL (12.0-15.0); Lymphocyte # 2.35 X10^3/ul (4.0); Mean Corpuscular Volume 96.9 fL (81-99); Mean Platelet Vol. 11.2 fl (6.2-12.0); Monocyte# 0.73 X10^3/uL; Monocyte% 8.1 % (0-10); NRBC Flagged by Analyzer 0 % (0-5); Neutrophil % 60.7 % (47-70); Platelet Count 261 K/mm3 (150-450); RBC Distribution Width CV 13.1 % (11.6-14.6); RBC Distribution Width SD 45.4 fl (35.1-43.9); Red Blood Count 4.19 M/mm3 (4.2-5.4); White Blood Count 9.1 K/mm3 (4.4-11.0)
[2019-12-24 15:50] LABS: AST(SGOT) 12 U/L (15-37); Alanine Aminotransfer ALT/SGPT 17 U/L (13-56); Albumin, Serum 3.5 g/dL (3.2-5.0); Alkaline Phosphatase 68 U/L (45-117); Anion Gap 5 (5-15); BUN 16 mg/dL (7-18); BUN/Creat Ratio 22.8 RATIO (10-20); Calcium,Total 8.7 mg/dL (8.5-10.1); Chloride 110 mmol/L (98-107); EST Glomerular Filtration Rate 93 mL/min (>60); Est Glom Filt Rate - Afr Amer 113 mL/min (>60); Globulin 3.5 g/dL (2.2-4.2); Glucose 127 mg/dL (74-106); Potassium 3.5 mmol/L (3.5-5.1); Sodium Level 139 mmol/L (136-145)
[2019-12-24 16:24] VITALS: BP 133/75; PULSE 95; RESP 18; TEMP 36.2; O2SAT 98
--- NOTE | 2019-12-24 17:29 | ED.RN ---
IV DC'ED, CATHETER INTACT, SMALL GAUZE DRESSING PLACED. DISCHARGE INSTRUCTIONS GIVEN TO AND REVIEWED WITH PATIENT, PATIENT DENIES QUESTIONS OR CONCERNS AND VOICES UNDERSTANDING OF DISCHARGE INSTRUCTIONS. PT AMBULATES OUT OF ROOM WITHOUT DIFFICULTY.
== END 2019-12-24 17:29 | disposition home or self-care (01) ==
PROVIDERS: Emergency Provider Emergency Medicine; PCP Family Medicine
DX: L08.9 Local infection of the skin and subcutaneous tissue, unspecified (principal); E66.01 Morbid (severe) obesity due to excess calories; F17.200 Nicotine dependence, unspecified, uncomplicated
CPT/HCPCS: 73630; 80053; 85025; 85652; 86140; 96365; 96375; 99283; J7050; A4216; J2405

== ENCOUNTER 2020-02-11 13:46 | Emergency (ER) | payer MEDICARE, MEDICAID, SELFPAY ==
[2020-02-11 13:47] VITALS: BP 131/84; PULSE 117; RESP 16; TEMP 35.4; O2SAT 98; BMI 41.1
--- NOTE | 2020-02-11 14:07 | RAD_ITS ---
STUDY: X-RAY - RIGHT ANKLE REASON FOR EXAM: Female, 49 years old. FALL, PAIN TECHNIQUE: 3 view(s) of the ankle. COMPARISON: None. FINDINGS: Normal visualized distal tibia and fibula. Normal medial and lateral malleoli. Normal tibiotalar articulation and ankle mortise. Calcaneal spur noted. The visualized subtalar, talonavicular, calcaneocuboid and tarsal articulations are normal. The soft tissue structures are unremarkable. RAD/Ankle min 3 Views IMPRESSION: No fracture or malalignment. Electronically Signed: Jose Lewis MD (Brooks) at 15:01 EST , Service support ,
--- NOTE | 2020-02-11 14:08 | ED.VIS.GEN ---
History of Present Illness Chief Complaint: Lower Extremity Injury Informant: Patient Onset: Today Current Severity: Moderate Maximum Severity: Moderate Narrative: Patient presents secondary to right ankle injury. She states she was going down the steps this morning when her cat ran down in front of her. Instead of stepping on her cat she tried to step 2 steps down and when she did felt a pop in her ankle. She has increased pain especially with any weightbearing. She denies paresthesias. - Past Medical History (1) COPD (chronic obstructive pulmonary disease) Status: Chronic (2) Chronic back pain Status: Chronic (3) Depression Status: Chronic Past Medical History - Allergies and Home Meds Allergies/Adverse Reactions: Allergies tramadol Allergy (Verified 02/11/20 13:47) Itching gabapentin Adverse Reaction (Verified 02/11/20 13:47) Nausea metronidazole [From Flagyl] Adverse Reaction (Verified 02/11/20 13:47) Upset Stomach Primary Care Physician: Bird Dietrich MD [Primary Care Provider] - Prior records reviewed: Yes Surgical History: - - surgery on her neck in 1990 or fracture of C6-7. has also had surgery on her wrist. Smoking Status: Current every day smoker - Family History Maternal Family History: Family History (Last Updated 10/24/19 @ 14:34 by Solange Carpenter) Father Hypertension Family History: Reports: - - sttes her mother is still alive....denies hx of CAD Review of Systems General: Denies: Chills, Fever Eyes: Denies: Visual changes - bilaterally ENT: Denies: Bilateral ear pain Cardiovascular: Denies: Chest pain Respiratory: Denies: Dyspnea, Cough Gastrointestinal: Denies: Abdominal pain Musculoskeletal: Reports: Extremity Pain Skin: Denies: Wounds Hematologic: Denies: Easy bruising, Easy bleeding Allergy: Denies: Uticaria Physical Exam Vital Signs/Narrative: Vital Signs Temp Pulse Resp BP Pulse Ox 02/11/20 13:47 95.8 F L 117 H 16 131/84 H 98 Inital Vital Signs reviewed: Yes General: Well nourished, Well developed Head: Normocephalic ENT: Moist mucous membranes Neck: Supple Cardiovascular: Regular rate, Regular rhythm Respiratory: No distress, CTA bilaterally Abdomen: Soft, Nontender Back: Nontender Extremities: - - Tenderness palpation of the lateral malleolus with minimal edema. Mild tenderness at the Achilles insertion onto the calcaneus. She is able to flex and extend her foot. Good cap refill and sensation distally. Skin: Normal color Neurological: Alert, Oriented x3 Psychological: Normal affect Diagnostic/Tx/Re-eval Impressions Ankle X-Ray 02/11/20 14:07 IMPRESSION: No fracture or malalignment. Electronically Signed: Jose Lewis MD (Bro[place]) at 15:01 EST , Service support , 02/11/20 14:07 Ankle min 3 Views [RAD] Stat - Medical Decision Making Patient was given naproxen here for pain. Ankle x-rays are reviewed and are negative. Test results are discussed with the patient. She will be given stirrup splint. She was offered crutches but does not believe she will be able to use them. She does state that she is does not know if naproxen will be strong enough for her pain, however I advised her without evidence of a fracture I do not feel comfortable writing her narcotics. She states she already has naproxen at home that she can take. ED Disposition - Plan for ED Patient: Disposition: Home or Assisted Living Diagnosis: Ankle sprain Instructions: ED Sprain Ankle W X Ray Referrals: Bird Dietrich MD [Primary Care Provider] - Robert Thompson DO [STAFF PHYSICIAN] - As Needed
[2020-02-11] MEDS: Naproxen 500 MG Tablet PO (14:52)
--- NOTE | 2020-02-11 15:23 | CCN.REFER ---
AIRCAST APPLIED. PT UPSET D/T NOT GETTING NARCOTICS FOR PAIN. PT STATES REGARDING THE AIRCAST, THIS THINGS JUST FALL APART, ILL JUST THROW IT AWAY WHEN I GET HOME. THIS RN EXPLAINED THAT THE PT DID NOT HAVE TO WEAR IT AGAIN PT STATES, ILL WEAR IT HOME AND THEN JUST THROW IT AWAY.
== END 2020-02-11 15:26 | disposition home or self-care (01) ==
PROVIDERS: Emergency Provider Emergency Medicine; PCP Family Medicine
DX: S93.401A Sprain of unspecified ligament of right ankle, initial encounter (principal); X50.9XXA Other and unspecified overexertion or strenuous movements or postures, initial encounter; Y93.89 Activity, other specified; Y92.008 Other place in unspecified non-institutional (private) residence as the place of occurrence of the external cause; Y99.9 Unspecified external cause status; J44.9 Chronic obstructive pulmonary disease, unspecified; F17.200 Nicotine dependence, unspecified, uncomplicated; Z82.49 Family history of ischemic heart disease and other diseases of the circulatory system; Z88.1 Allergy status to other antibiotic agents; Z88.5 Allergy status to narcotic agent; Z88.8 Allergy status to other drugs, medicaments and biological substances
CPT/HCPCS: 73610; 99283

== ENCOUNTER 2020-06-14 09:38 | Day surgery (SDC) | payer MEDICARE, MEDICAID, SELFPAY ==
--- NOTE | 2020-06-13 12:14 | EKG12_ITS ---
Test Reason : PREOP Blood Pressure : / mmHG Vent. Rate : 084 BPM Atrial Rate : 084 BPM P-R Int : 166 ms QRS Dur : 100 ms QT Int : 392 ms P-R-T Axes : 067 -18 049 degrees QTc Int : 463 ms Normal sinus rhythm Normal ECG Confirmed by ALLYSON CADE, RADHA ([id number]), newspaper editor managing SHYAM LOUIS ([id number]) on 06/17/2020 1:21:02 PM Referred By: Jake Jo Confirmed By:SIOBHAN VALADEZ MD
[2020-06-13 14:14] LABS: Anion Gap 5 (5-15); BUN 9 mg/dL (7-18); BUN/Creat Ratio 10.6 RATIO (10-20); Calcium,Total 8.9 mg/dL (8.5-10.1); Chloride 110 mmol/L (98-107); Creatinine, Serum 0.85 mg/dL (0.55-1.02); EST Glomerular Filtration Rate 75 mL/min (>60); Est Glom Filt Rate - Afr Amer 90 mL/min (>60); Glucose 110 mg/dL (74-106); Potassium 3.8 mmol/L (3.5-5.1); Sodium Level 139 mmol/L (136-145)
--- NOTE | 2020-06-14 | VOCOB_PTH ---
PATIENT: YUDY GRANDA LOC: [facility] [place][id number] AGE/SX: 50/F ROOM: RE06/14/[address]: Dr. Jake Jo MD : 1970 BED: DIS: 06/14/2020 SPEC #: [id number] RECD: 06/14/20 13:53 STATUS: ARSLAN FLANNERY #: [id number] CARLY: 06/14/20 00:[address]: Jake Jo DEPT: SURGICAL PATHOLOGY RECD BY: David Collins ENTERED: 06/17/20 07:41 SP TYPE: VOCAL CORD OTHR DR: Dr. Bird Dietrich MD Tissues: Vocal cord, NOS Procedures: Surgery Specimen Level IV HEADER OPERATION: Laryngoscopy, direct operative with biopsy PRE-OP DIAGNOSIS: Polyp of vocal cord, hoarse, GERD TISSUE SUBMITTED: Lesion of vocal cord MICROSCOPIC DIAGNOSIS Left vocal cord lesion, biopsy: Consistent with benign vocal cord polyp. AM:crystal 06/18/2020 MICROSCOPIC DESCRIPTION Slides are reviewed. GROSS DESCRIPTION Received in fixative is one container labeled with the patient's name and designated lesion left vocal cord. The specimen consists of a piece of castro-pink polypoid tissue measuring 1 x 0.5 x 0.2 cm. The entire specimen is submitted in one cassette. / SJ:crystal 06/17/20 TC:1 CPT: 46063
[2020-06-14 10:01] VITALS: BP 138/82; PULSE 103; RESP 16; TEMP 36.5; O2SAT 95; BMI 40.8
[2020-06-14] MEDS: Lactated Ringers 1,000 ML 100 ML IV (10:08)
[2020-06-14] MEDS: Oxymetazoline 0.05% 1 SPRAY SPRAY.BTL 15 SPRAY (11:45)
[2020-06-14] MEDS: Lidocaine 4% 50 ML Bottle (11:45)
--- NOTE | 2020-06-14 11:53 | PCM.OPRPT ---
Problem List (1) Vocal cord polyp Status: Chronic (2) Hoarse Status: Chronic Report of Operation Date of Procedure: 06/14/20 Pre-Operative Diagnosis: Hoarseness, vocal fold polyp left Post-Operative Diagnosis: Same Surgery/Procedure Performed:: Direct microlaryngoscopy with excision of left vocal fold polyp Description of Surgical Findings:: Lucy is a 50-year-old female smoker with complaints of hoarseness and office examination showing a large left vocal polyp. Given her smoking history and hoarseness excision was advised for treatment and definitive evaluation and she was agreeable to proceed. The risks, alternatives, potential complications, and benefits were discussed at length and any questions answered to the patient and/or caregiver's satisfaction. Witnessed informed consent was obtained in the office, and the patient and/or caregiver was agreeable to proceed. Procedure went as follows: The patient was identified in the preoperative holding and brought to the operating room, placed under general anesthesia, and intubated. When appropriate anesthesia was obtained, the head of bed was rotated and the patient prepped and draped in usual sterile fashion. A dental guard was then placed to protect the upper gums and the Dedo laryngoscope then introduced. Direct laryngoscopy was then carried out. The lateral posterior pharyngeal wall mucosa, tonsillar fossa, vallecula, piriforms, and epiglottis were noted to be normal in appearance. The true and false vocal folds were then brought into view. She had very poor neck extension prior to her cervical fusion and this did limit the view of the anteriormost aspect of the vocal folds. By applying anterior pressure to the laryngeal cartilage however this was able to be brought into view. The patient was then placed in suspension and the operative microscope brought into the field. Using pledgets soaked in a 50-50 mixture of oxymetazoline and 4% topical lidocaine the true vocal folds were then topicalized. The left vocal polyp was then grasped with an atraumatic forceps and using an cutting laryngeal scissor the polyp was then excised and sent for pathologic specimen. The excess mucosa was then excised with the remaining tissue redraped over the vocal ligament. Pledgets were then applied for hemostasis. The pledgets were then removed and the patient taken out of suspension and returned to anesthesia, was revived, and extubated without complication having tolerated the procedure well. Type of Anesthesia:: General Anesthesiologist: Delonte Davis Special Medications: none Specimen's removed: left vocal polyp Drains: none Estimated Blood Loss (mL): 0 mL Fluids Replaced: 300 mL Grafts/Implants Used: none - Complications none - Admit VTE Documentation VTE Present on Admission: No VTE Mechan Device Prophylaxis: SCD's VTE Pharm Prophylaxis ordered?: No
--- NOTE | 2020-06-14 11:59 | DCINST_ITS ---
- Discharge Diagnoses Current Active Problems: Current Active and Chronic Problems (Last Updated 10/24/19 @ 14:33 by Solange Carpenter) Vocal cord polyp (Chronic) Hoarse (Chronic) You will use the following diet at home:: No restrictions Your food should be the consistency of: Regular Discharge Activity: Return to Normal Activity Call your doctor if you observe: Fever of 101 or Higher, Shortness of breath, Uncontrolled pain Allergies/Adverse Reactions: Allergies tramadol Allergy (Verified 06/14/20 09:43) Itching gabapentin Adverse Reaction (Verified 06/14/20 09:43) Nausea metronidazole [From Flagyl] Adverse Reaction (Verified 06/14/20 09:43) Upset Stomach Medications to take at Discharge Sertraline HCl [Zoloft] 50 mg PO DAILY 09/26/19 albuterol sulfate 90 mcg/actuation aerosol inhaler 2 puff INHALATION Q4H PRN g 10/24/19 pregabalin 50 mg capsule 50 mg PO BID 10/24/19 Primary Care Physician: Bird Dietrich MD [Primary Care Provider] - Test Results: Test results from this visit will be discussed in further detail at your follow- up appointment, if applicable. Please Follow Up With: Jake Jo MD When: 2 weeks
[2020-06-14 12:04] VITALS: BP 115/80; BP 138/82; PULSE 109; RESP 18; TEMP 36.7; O2SAT 99
[2020-06-14 12:15] VITALS: BP 138/82; BP 145/103; PULSE 108; RESP 18; O2SAT 98
[2020-06-14 12:30] VITALS: BP 138/82; BP 146/109; PULSE 101; RESP 18; O2SAT 93
[2020-06-14 12:38] VITALS: BP 138/77; BP 138/82; PULSE 97; RESP 18; TEMP 36.9; O2SAT 100
[2020-06-14 12:52] VITALS: BP 138/82
--- NOTE | 2020-06-14 12:59 | SUR.PHASEII ---
escort showed up to take patient out in wheelchair, nobody in room.
== END 2020-06-14 13:00 | disposition home or self-care (01) ==
LOC: SDC 09:38 → AC 09:38
PROVIDERS: PCP Family Medicine; Referring Provider Otolaryngology; Visit Provider Otolaryngology
PROC: 0CJS8ZZ Inspection of Larynx, Via Natural or Artificial Opening Endoscopic (ICD-10-PCS; CPT 31575; principal; 2020-06-14 11:25)
DX: J38.1 Polyp of vocal cord and larynx (principal); K21.9 Gastro-esophageal reflux disease without esophagitis; F32.9 Major depressive disorder, single episode, unspecified; R49.0 Dysphonia; F17.210 Nicotine dependence, cigarettes, uncomplicated; Z79.899 Other long term (current) drug therapy; Z20.828 Contact with and (suspected) exposure to other viral communicable diseases
CPT/HCPCS: 31541; 36415; 80048; 87426; 88305; 93005; C9803; J7120; J2405

== ENCOUNTER 2020-11-12 20:11 | Emergency (ER) | payer MEDICARE, MEDICAID, SELFPAY ==
[2020-11-12 20:11] VITALS: PULSE 108; RESP 20; TEMP 36.5; O2SAT 97; BMI 42.4
[2020-11-12] MEDS: Morphine 4 MG/ML Syringe IM (21:10)
--- NOTE | 2020-11-12 21:25 | RAD_ITS ---
STUDY: X-RAY - LUMBAR SPINE REASON FOR EXAM: Female, 50 years old. Injury/Pain TECHNIQUE: 3 view(s) of the lumbar spine were obtained. COMPARISON: None FINDINGS: Normal lumbar lordosis. There is no substantial scoliosis. There is a normal alignment of the vertebrae. There is multilevel endplate spondylosis of the lumbar vertebrae. There is multi-level degenerative disc disease with multi-level disc space narrowing. There is no demonstrated fracture. Postoperative changes in the soft tissues of the pelvis. There is right abdominal calcification versus bowel contents. RAD/Lumbar Spine 2 or 3 Views IMPRESSION: Degenerative changes of the spine, as detailed above. Electronically Signed: Osmany Woodruff MD at 22:38 EDT , Service support ,
--- NOTE | 2020-11-12 22:59 | EDS_ITS ---
HPI History of Present Illness Chief Complaint: Back Informant: patient Onset/Context/Timing Onset: Weeks (1) Timing: Continuous Quality: Sharp, Aching and Burning Location: Lumbar Current Severity: Severe Worsened by: improves with Ambulation Relieved by: Nothing Associated Symptoms Associated Symptoms: Tingling, Radiation to Right Leg and Radiation to Left Leg; Negative for Numbness, Fever, Abdominal Pain, Dysuria, Unable to Ambulate, Unable to Transfer, Urinary Retention, Urinary Incontinence and Fecal Incontinence Narrative Narrative: Patient presents with low back pain that has been getting worse over the past few weeks. Patient states it is gradually getting worse. Patient states she fell recently and landed on her low back and sacral area. Patient describes her pain as sharp, aching, and burning. Patient states the pain is over the lower lumbar area. Patient states the pain radiates into her legs bilaterally. Patient admits to some tingling but denies any numbness or weakness. Patient states her pain is worse with ambulation. PFSH PFSH Medical History Abdominal pain Anxiety Arthritis Back problem Black tarry stools Chest pain Chronic back pain Constipation COPD (chronic obstructive pulmonary disease) Depression Diarrhea History of crack cocaine use Morbid obesity Smoking addiction Home Medications sertraline 50 mg PO DAILY 09/26/19 [History Last Taken 11/14/19] albuterol sulfate 90 mcg/actuation aerosol inhaler 2 puff INHALATION Q4H PRN g 10/24/19 [History Last Taken Unknown] pregabalin 50 mg capsule 50 mg PO BID 10/24/19 [History Last Taken 11/14/19] cyclobenzaprine 10 mg PO QHS PRN PRN #10 tablet 11/12/20 [Rx Last Taken Unknown] hydrocodone-acetaminophen 1 tab PO Q6H PRN PRN 3 Days #10 tablet 11/12/20 [Rx Last Taken Unknown] Allergy/AdvReac Type Severity Reaction Status Date / Time tramadol Allergy Itching Verified 11/12/20 20:19 gabapentin AdvReac Nausea Verified 11/12/20 20:19 metronidazole [From Flagyl] AdvReac Upset Verified 11/12/20 20:19 Stomach Family History (Updated 10/24/19 @ 14:34 by Solange Carpenter) Father Hypertension Surgical History History of hysterectomy History of tonsillectomy Hx of fusion of cervical spine Social History Smoking Status: Current every day smoker tobacco type: cigarettes alcohol intake: never substance use type: does not use ROS ROS ED Constitutional Constitutional ED: Denies chills or fever(s) Eyes Eyes: Denies blurry vision or change in vision ENT ENT ED: Denies rhinorrhea or sore throat Cardiovascular Cardiovascular: Denies chest pain or palpitations Respiratory/Chest Respiratory/Chest: Denies cough or dyspnea Gastrointestinal Gastrointestinal: Denies nausea or vomiting Genitourinary Genitourinary ED: Denies dysuria or hematuria Musculoskeletal Musculoskeletal: Reports back pain; Denies neck pain Integumentary Reports rash; Denies abscess Neurologic Neurologic: Denies headache(s) or weakness Allergic/Immunologic Allergic/Immunologic ED: Denies mouth swelling or urticaria EXAM Physical Exam Const Vital Signs: 11/12/20 20:11 Temperature 97.7 F L Temperature Source Temporal Pulse Rate 108 H Respiratory Rate 20 H Pulse Ox 97 Oxygen Delivery Method Room Air Positive well nourished, well developed and obese General Appearance ED: well developed Nutritional Appearance: obese HEENT Reports moist mucous membranes Neck supple and no JVD Back/Spine Back/Spine Narrative: There is tenderness over the lumbar spine and paraspinal muscles bilaterally. There is no bony crepitance or step-off. Range of motion was limited in all motion secondary to pain. Strength is 5/5 bilaterally in the upper and lower extremities. There are no sensory deficits noted. Patient was able ambulate without difficulty. Lumbar Spine / Lower Back: ROM limited and straight leg raise negative bilaterally Extremity normal to inspection General Extremety ED: Negative for edema or tenderness General Extremity: Negative for edema Neuro oriented x3 and no sensory deficits noted Sensorium / Orientation: alert Motor Exam: strength 5/5 throughout Psych mental status grossly normal MDM MDM MDM Narrative Medical decision making narrative: Because of the recent fall, x-rays of the lumbar spine were obtained. There are 3 views. On my interpretation, there is no acute fracture or spondylolisthesis. Radiologist also interpreted the x-rays and agrees. Patient was given injection of morphine here. Patient had minimal relief of her pain with this. Patient was given a dose of oxycodone prior to discharge. Patient was given prescriptions for [place] and Flexeril. Patient was instructed use ice to the area. Patient was instructed to follow-up with her primary care physician for further management of her pain. Patient understood and was agreeable with the plan. All questions were answered. Radiography X-Ray: LS SPine, Read by ED Physician, Read by Radiologist and DJD Diagnostic Testing: Radiology Impression Lumbar Spine X-Ray 11/12/20 21:25 IMPRESSION: Degenerative changes of the spine, as detailed above. Electronically Signed: Osmany Woodruff MD at 22:38 EDT , Service support , Discharge Plan Triage Chief Complaint: Back ED Provider: Jake Malin Dx/Rx/DC Orders Clinical Impression: Acute low back pain Instructions: ED Back Pain (Acute or Chronic) Prescriptions: New cyclobenzaprine [cyclobenzaprine] 10 MG tablet 10 mg PO QHS PRN PRN (Reason: Muscle Spasm) Qty: 10 RF: 0 hydrocodone-acetaminophen [hydrocodone-acetaminophen] 1 TABLET tablet 1 tab PO Q6H PRN PRN (Reason: Pain) 3 Days Qty: 10 RF: 0 No Action albuterol sulfate [Proventil HFA] 90 mcg/actuation HFA aerosol inhaler 2 puff INHALATION Q4H PRN (Reason: Sob &/Or Wheezing) RF: 0 pregabalin [Lyrica] 50 mg capsule 50 mg PO BID RF: 0 sertraline 50 MG tablet 50 mg PO DAILY RF: 0 Primary Care Provider: Bird Dietrich Referrals: Bird Dietrich MD [Primary Care Provider] - 3-5 Days Disposition Disposition: Home, Self Care
[2020-11-12] MEDS: oxyCODONE 5 MG Tablet PO (23:20)
== END 2020-11-12 23:36 | disposition home or self-care (01) ==
PROVIDERS: Emergency Provider Emergency Medicine; PCP Family Medicine
DX: M54.5 Low back pain (principal); E66.01 Morbid (severe) obesity due to excess calories; F32.9 Major depressive disorder, single episode, unspecified; F41.9 Anxiety disorder, unspecified; J44.9 Chronic obstructive pulmonary disease, unspecified; M19.90 Unspecified osteoarthritis, unspecified site; M47.816 Spondylosis without myelopathy or radiculopathy, lumbar region; F17.210 Nicotine dependence, cigarettes, uncomplicated; Z79.899 Other long term (current) drug therapy
CPT/HCPCS: 72100; 96372; 99283

== ENCOUNTER 2020-11-28 17:50 | Emergency (ER) | payer OTHER, MEDICARE, MEDICAID, SELFPAY ==
[2020-11-28 17:51] VITALS: BP 135/111; PULSE 99; RESP 16; TEMP 36.7; O2SAT 99; BMI 43.3
--- NOTE | 2020-11-28 17:51 | ED.RN ---
UPON ARRIVAL, PT RUDE, DISRESPECTFUL, AND UNCOOPERATIVE WITH SCREENER.
--- NOTE | 2020-11-28 17:55 | ED.RN ---
AFTER TRIAGING PT, SHE WENT OVER AND APOLOGIZED TO THE SCREENER.
--- NOTE | 2020-11-28 19:42 | RAD_ITS ---
STUDY: X-RAY - RIGHT KNEE REASON FOR EXAM: Female, 50 years old. fall TECHNIQUE: 4 view(s) of the knee. COMPARISON: None. FINDINGS: Normal visualized distal femur. Normal visualized proximal tibia and fibula. Normal proximal tibiofibular articulation. Narrowed medial femorotibial compartment. Normal lateral femorotibial compartment. Narrowed patellofemoral articulation. The soft tissue structures are unremarkable. RAD/Knee 4 or More Views IMPRESSION: Moderate osteoarthritic change . No acute fracture Electronically Signed: Duglas Stewart MD at 21:45 EDT , Service support ,
--- NOTE | 2020-11-28 19:42 | RAD_ITS ---
STUDY: X-RAY - RIGHT SHOULDER REASON FOR EXAM: Female, 50 years old. fall TECHNIQUE: 2 view(s) of the shoulder. COMPARISON: None. FINDINGS: Normal glenohumeral articulation. Normal acromioclavicular joint. Normal acromion. Normal humeral head and visualized proximal humerus. The soft tissue structures are unremarkable. Normal visualized pulmonary apex. RAD/Shoulder min 2 Views IMPRESSION: Normal x-ray examination of the shoulder. Electronically Signed: Duglas Stewart MD at 21:41 EDT , Service support ,
--- NOTE | 2020-11-28 19:42 | RAD_ITS ---
STUDY: X-RAY - RIGHT ELBOW REASON FOR EXAM: Female, 50 years old. fall TECHNIQUE: 3 view(s) of the elbow. COMPARISON: None. FINDINGS: Normal visualized humerus, radius and ulna. Normal radiocapitellar and ulnotrochlear articulations. The soft tissue structures are unremarkable. RAD/Elbow min 3 Views IMPRESSION: Normal x-ray examination of the elbow. Electronically Signed: Duglas Stewart MD at 21:44 EDT , Service support ,
--- NOTE | 2020-11-28 20:16 | RAD_ITS ---
STUDY: X-RAY - RIGHT ANKLE REASON FOR EXAM: Female, 50 years old. fall TECHNIQUE: 3 view(s) of the ankle. COMPARISON: None. FINDINGS: Normal visualized distal tibia and fibula. Normal medial and lateral malleoli. Normal tibiotalar articulation and ankle mortise. Normal visualized talus. Moderate sized plantar calcaneal spur. The visualized subtalar, talonavicular, calcaneocuboid and tarsal articulations are normal. Mild soft tissue swelling overlying the lateral malleolus. RAD/Ankle min 3 Views IMPRESSION: Lateral malleolus sprain. No evidence for acute fracture Electronically Signed: Duglas Stewart MD at 21:40 EDT , Service support ,
--- NOTE | 2020-11-28 21:43 | ED.RN ---
pt verbally abusive to staff.pt stated she did not want the naprosynit's like ALEVE and i don't want Aleve,just get the doctor to read my x-cesar and get me out of here.You have Covid patients here and I don't want it. empathy given. Pt CONTINUED TO C/O HER CARE AND HER DESIRE TO LEAVE.MD MADE AWARE AND DID TALK TO HER.
--- NOTE | 2020-11-28 21:51 | EDS_ITS ---
HPI HPI - Fall History of Present Illness Chief Complaint: Fall Narrative Narrative: Patient presenting for evaluation secondary to a fall at work. Patient states she suffered a mechanical fall at work, and fell striking her elbow and knee. Patient states that she has moderate to severe pain associated with this. She denies hitting her head or loss consciousness. Pain is worse with palpation and movement. She denies any numbness or weakness. She is not a nticoagulated. Review of systems otherwise negative. PFSH PFSH Medical History Abdominal pain Anxiety Arthritis Back problem Black tarry stools Chest pain Chronic back pain Constipation COPD (chronic obstructive pulmonary disease) Depression Diarrhea History of crack cocaine use Morbid obesity Smoking addiction Home Medications sertraline 50 mg PO DAILY 09/26/19 [History Last Taken 11/14/19] albuterol sulfate 90 mcg/actuation aerosol inhaler 2 puff INHALATION Q4H PRN g 10/24/19 [History Last Taken Unknown] pregabalin 50 mg capsule 50 mg PO BID 10/24/19 [History Last Taken 11/14/19] cyclobenzaprine 10 mg PO QHS PRN PRN #10 tablet 11/12/20 [Rx Last Taken Unknown] hydrocodone-acetaminophen 1 tab PO Q6H PRN PRN 3 Days #10 tablet 11/12/20 [Rx Last Taken Unknown] Allergy/AdvReac Type Severity Reaction Status Date / Time tramadol Allergy Itching Verified 11/28/20 17:51 gabapentin AdvReac Nausea Verified 11/28/20 17:51 metronidazole [From Flagyl] AdvReac Upset Verified 11/28/20 17:51 Stomach Family History Father Hypertension Surgical History History of hysterectomy History of tonsillectomy Hx of fusion of cervical spine Social History Smoking Status: Current every day smoker tobacco type: cigarettes alcohol intake: never substance use type: does not use ROS ROS ED Constitutional Constitutional ED: Denies chills or fever(s) ENT ENT ED: Denies rhinorrhea Cardiovascular Cardiovascular: Denies chest pain Respiratory/Chest Respiratory/Chest: Denies cough or dyspnea Gastrointestinal Gastrointestinal: Denies abdominal pain, diarrhea, nausea or vomiting Genitourinary Genitourinary ED: Denies dysuria or hematuria Musculoskeletal Musculoskeletal: Reports other Details: Elbow shoulder knee and ankle pain ; Denies back pain Integumentary Denies rash Neurologic Neurologic: Denies paresthesias or weakness Psychiatric Psychiatric: Denies depression Endocrine Endocrinology: Denies fatigue Allergic/Immunologic Allergic/Immunologic ED: Denies urticaria EXAM Physical Exam Const Vital Signs: 11/28/20 17:51 11/28/20 19:09 Temperature 98.1 F Temperature Source Temporal Pulse Rate 99 Respiratory Rate 16 Respiratory Effort Normal Blood Pressure 135/111 H Blood Pressure Mean 119 Pulse Ox 99 Oxygen Delivery Method Room Air Positive well nourished and well developed General Appearance ED: well developed and NAD HEENT Reports moist mucous membranes Negative for trauma or tenderness Eyes EOMs intact bilaterally Neck no lymphadenopathy, supple and no JVD Chest Wall inspection of chest normal Resp normal respiratory effort and clear to auscultation bilaterally Cardio regular rate, regular rhythm, no murmurs and peripheral pulses 2+ throughout GI normal to inspection, nondistended, normoactive bowel sounds, non-tender and no masses Palpation: soft Back/Spine normal to inspection Extremity Extremity Narrative: Patient complains of pain on palpation of the right elbow. There is some bruising in that area. Normal range of motion. Patient also complains of some pain on range of motion of the right shoulder with normal range of motion. Normal distal sensation and pulses. Examination of the right knee shows minimal swelling, no ecchymosis. Pain on palpation over the patella, no joint laxity. Examination of the ankle shows minimal swelling over the lateral malleolus with tenderness palpation in that area, normal range of motion but tenderness over the fifth metatarsal head. General Extremety ED: Negative for tenderness Neuro oriented x3 and no sensory deficits noted Sensorium / Orientation: alert Motor Exam: strength 5/5 throughout Psych mental status grossly normal Skin no rashes or lesions noted MDM MDM MDM Narrative Medical decision making narrative: Patient presented secondary to a fall. She had injuries to her shoulder elbow knee and ankle. Patient was offered Naprosyn in the emergency department and refused stating to nursing you are giving me aleve, I can take that at home. Prior to the patient's xray reads becoming available she requested nursing to speak with me requesting that I read her xrays now and discharge her because she had been waiting and there were COVID patients in the hospital. I informed her that I would personally read her xrays and discharge her. I personally reviewed her x-rays and noted that the x-rays of the elbow, knee, shoulder, and ankle are negative for bony injury. Her reads did become available prior to discharge. Patient will be given expectant management measures for contusions and sprains. Patient was discharged in stable condition. Radiography Diagnostic Testing: Radiology Impression Elbow X-Ray 11/28/20 19:42 IMPRESSION: Normal x-ray examination of the elbow. Electronically Signed: Duglas Stewart MD at 21:44 EDT , Service support , Knee X-Ray 11/28/20 19:42 IMPRESSION: Moderate osteoarthritic change . No acute fracture Electronically Signed: Duglas Stewart MD at 21:45 EDT , Service support , Shoulder X-Ray 11/28/20 19:42 IMPRESSION: Normal x-ray examination of the shoulder. Electronically Signed: Duglas Stewart MD at 21:41 EDT , Service support , Ankle X-Ray 11/28/20 20:16 IMPRESSION: Lateral malleolus sprain. No evidence for acute fracture Electronically Signed: Duglas Stewart MD at 21:40 EDT , Service support , Discharge Plan Triage Chief Complaint: Fall ED Provider: Robert Nj Dx/Rx/DC Orders Clinical Impression: Ankle sprain, Contusion of knee, Contusion of elbow Prescriptions: No Action albuterol sulfate [Proventil HFA] 90 mcg/actuation HFA aerosol inhaler 2 puff INHALATION Q4H PRN (Reason: Sob &/Or Wheezing) RF: 0 pregabalin [Lyrica] 50 mg capsule 50 mg PO BID RF: 0 sertraline 50 MG tablet 50 mg PO DAILY RF: 0 cyclobenzaprine [cyclobenzaprine] 10 MG tablet 10 mg PO QHS PRN PRN (Reason: Muscle Spasm) Qty: 10 RF: 0 hydrocodone-acetaminophen [hydrocodone-acetaminophen] 1 TABLET tablet 1 tab PO Q6H PRN PRN (Reason: Pain) 3 Days Qty: 10 RF: 0 Primary Care Provider: Bird Dietrich Referrals: Bird Dietrich MD [Primary Care Provider] - As Needed Disposition Disposition: Home, Self Care
[2020-11-28 22:21] VITALS: RESP 16
--- NOTE | 2020-11-28 22:21 | ED.RN ---
pt in [facility] asking for her d/c instruction. pt states that she was not treated by the doctor here. pt informed that the dr offered her naproxen and reviewed her xrays. pt stated they didn't do anything for me and i don't know why he thinks i can work tomorrow. off unit via ambulation steady gait.
== END 2020-11-28 22:45 | disposition home or self-care (01) ==
PROVIDERS: Emergency Provider Emergency Medicine; PCP Family Medicine
DX: S80.00XA Contusion of unspecified knee, initial encounter (principal); S93.401A Sprain of unspecified ligament of right ankle, initial encounter; Y99.0 Civilian activity done for income or pay; W18.00XA Striking against unspecified object with subsequent fall, initial encounter; Y92.89 Other specified places as the place of occurrence of the external cause; J44.9 Chronic obstructive pulmonary disease, unspecified; F41.9 Anxiety disorder, unspecified; F17.210 Nicotine dependence, cigarettes, uncomplicated; F32.9 Major depressive disorder, single episode, unspecified; Z79.899 Other long term (current) drug therapy
CPT/HCPCS: 73030; 73080; 73564; 73610; 99282

== ENCOUNTER 2020-12-04 16:56 | Emergency (ER) | payer MEDICARE, MEDICAID, SELFPAY ==
[2020-12-04 16:57] VITALS: BP 108/82; PULSE 118; RESP 15; TEMP 36.7; O2SAT 97; BMI 42.7
[2020-12-04 18:36] VITALS: PULSE 89; RESP 17; TEMP 36.6; O2SAT 98
[2020-12-04] MEDS: Diphth,Pertuss(Acell),Tet Vac 0.5 ML Vial IM (18:39)
--- NOTE | 2020-12-04 19:08 | ED.VIS.LOWEX ---
HPI History of Present Illness HPI Narrative: Patient presents with laceration to her left third toe that occurred today. Patient states she cut it on a nail on her deck. Patient states the bleeding has been persistent. Patient is unsure of her last tetanus. Patient denies any paresthesias or weakness. Patient describes her pain as sharp and throbbing. Patient denies any other injuries. Chief Complaint: Laceration Informant: patient Occured/Mechanism Mechanism/Context: Yes other see comment below Comment: Cut on a nail Onset/Context/Timing Onset: Today Context: Sudden Onset Timing: Continuous Quality of Pain: Sharp and Throbbing Worsened by: Nothing Relieved by: Nothing Associated Symptoms Associated Symptoms: Negative for Parasthesia and Weakness Narrative Tetanus Immunization: Unknown PFSH PFSH Medical History Abdominal pain Anxiety Arthritis Back problem Black tarry stools Chest pain Chronic back pain Constipation COPD (chronic obstructive pulmonary disease) Depression Diarrhea History of crack cocaine use Morbid obesity Smoking addiction Home Medications sertraline 50 mg PO DAILY 09/26/19 [History Last Taken 11/14/19] albuterol sulfate 90 mcg/actuation aerosol inhaler 2 puff INHALATION Q4H PRN g 10/24/19 [History Last Taken Unknown] pregabalin 50 mg capsule 50 mg PO BID 10/24/19 [History Last Taken 11/14/19] cyclobenzaprine 10 mg PO QHS PRN PRN #10 tablet 11/12/20 [Rx Last Taken Unknown] hydrocodone-acetaminophen 1 tab PO Q6H PRN PRN 3 Days #10 tablet 11/12/20 [Rx Last Taken Unknown] Allergy/AdvReac Type Severity Reaction Status Date / Time tramadol Allergy Itching Verified 12/04/20 16:57 gabapentin AdvReac Nausea Verified 12/04/20 16:57 metronidazole [From Flagyl] AdvReac Upset Verified 12/04/20 16:57 Stomach Family History Father Hypertension Surgical History History of hysterectomy History of tonsillectomy Hx of fusion of cervical spine Social History Smoking Status: Current every day smoker tobacco type: cigarettes alcohol intake: never substance use type: does not use ROS ROS ED Constitutional Constitutional ED: Denies chills or fever(s) Eyes Eyes: Denies blurry vision or change in vision ENT ENT ED: Denies rhinorrhea or sore throat Cardiovascular Cardiovascular: Denies chest pain or palpitations Respiratory/Chest Respiratory/Chest: Denies cough or dyspnea Gastrointestinal Gastrointestinal: Denies nausea or vomiting Genitourinary Genitourinary ED: Denies dysuria or hematuria Musculoskeletal Musculoskeletal: Denies back pain or neck pain Integumentary Denies abscess or rash Neurologic Neurologic: Denies headache(s) or weakness Allergic/Immunologic Allergic/Immunologic ED: Denies mouth swelling or urticaria EXAM Physical Exam Const Vital Signs: 12/04/20 16:57 12/04/20 18:36 Temperature 98.1 F 97.8 F Temperature Source Temporal Temporal Pulse Rate 118 H 89 Respiratory Rate 15 17 Blood Pressure 108/82 H Blood Pressure Mean 90 Pulse Ox 97 98 Oxygen Delivery Method Room Air Room Air Positive well nourished, well developed and obese General Appearance ED: well developed Nutritional Appearance: obese HEENT Reports moist mucous membranes Extremity normal to inspection and full ROM Neuro oriented x3, CN's II-XII intact bilaterally, moves all extremities and no sensory deficits noted Sensorium / Orientation: alert Motor Exam: strength 5/5 throughout Skin Skin Narrative: There is a 1.5 cm linear laceration over the tip of the left third toe. There is some mild bleeding. There are no foreign bodies visualized. Sensation was intact to light touch in all digits. Capillary refill was less than 2 seconds in all digits. There is full range of motion of all digits. MDM MDM MDM Narrative Medical decision making narrative: The wound was cleaned with chlorhexidine. The wound was closed with Dermabond skin adhesive. Patient was given a tetanus booster. Patient was instructed to avoid Neosporin, bacitracin, triple antibiotic, or other Vaseline-based ointments. Patient was instructed to keep the wound clean and dry. Patient was instructed to follow-up with her primary care physician in 5 to 7 days. Patient understood and was agreeable with the plan. All questions were answered. Procedures Lacerations Left third toe: Length: 1.5 cm Depth: Skin Shape: Linear Prep: Sterile Conditions and Chlorhexadine Laceration repair: Dermabond Discharge Plan Triage Chief Complaint: Laceration ED Provider: Schwiger,Jake Dx/Rx/DC Orders Clinical Impression: Laceration of third toe of left foot Instructions: ED Laceration, Extremity: Skin Glue Prescriptions: No Action albuterol sulfate [Proventil HFA] 90 mcg/actuation HFA aerosol inhaler 2 puff INHALATION Q4H PRN (Reason: Sob &/Or Wheezing) RF: 0 pregabalin [Lyrica] 50 mg capsule 50 mg PO BID RF: 0 sertraline 50 MG tablet 50 mg PO DAILY RF: 0 cyclobenzaprine [cyclobenzaprine] 10 MG tablet 10 mg PO QHS PRN PRN (Reason: Muscle Spasm) Qty: 10 RF: 0 hydrocodone-acetaminophen [hydrocodone-acetaminophen] 1 TABLET tablet 1 tab PO Q6H PRN PRN (Reason: Pain) 3 Days Qty: 10 RF: 0 Primary Care Provider: Bird Dietrich Referrals: Bird Dietrich MD [Primary Care Provider] - 5-7 Days Disposition Disposition: Home, Self Care
== END 2020-12-04 19:36 | disposition home or self-care (01) ==
PROVIDERS: Emergency Provider Emergency Medicine; PCP Family Medicine
DX: S91.115A Laceration without foreign body of left lesser toe(s) without damage to nail, initial encounter (principal); W45.0XXA Nail entering through skin, initial encounter; Y93.9 Activity, unspecified; Y92.89 Other specified places as the place of occurrence of the external cause; Y99.9 Unspecified external cause status; J44.9 Chronic obstructive pulmonary disease, unspecified; F41.9 Anxiety disorder, unspecified; F32.9 Major depressive disorder, single episode, unspecified; G89.29 Other chronic pain; M54.9 Dorsalgia, unspecified; F17.210 Nicotine dependence, cigarettes, uncomplicated; Z90.710 Acquired absence of both cervix and uterus; Z23 Encounter for immunization; E66.01 Morbid (severe) obesity due to excess calories; M19.90 Unspecified osteoarthritis, unspecified site; Z79.899 Other long term (current) drug therapy
CPT/HCPCS: 12001; 90471; 90715; 99282

== ENCOUNTER 2021-05-27 10:00 | Emergency (ER) | payer MEDICARE, MEDICAID, SELFPAY ==
[2021-05-27 10:00] VITALS: BP 110/93; PULSE 98; RESP 18; TEMP 36.1; O2SAT 97; BMI 43.4
--- NOTE | 2021-05-27 11:00 | EX.ED.DYSGE1 ---
HPI History of Present Illness Chief Complaint: Ear Problem Narrative Narrative: Patient presents with left ear pain that she has had for the last few weeks. She states that she thought she had a cerumen impaction and was trying to clean out her ear. She put drops in it previously for earwax removal. She states that it bubbled up. She began having pain in her left ear. She denies total loss of hearing, but states she went to urgent care for evaluation. She was told to use nasal spray such as Flonase. This was ineffective because she now has pain when she lays on her left ear and pain when she touches it. She denies any fevers or chills. No nausea or vomiting. No other symptoms. She states she tried to call her supervisor smoke control but is unable to get an appointment in a timely fashion according to her. She presents because of the left ear pain that is getting severe and radiating downward. PFSH PFSH Medical History Abdominal pain Anxiety Arthritis Back problem Black tarry stools Chest pain Chronic back pain Constipation COPD (chronic obstructive pulmonary disease) Depression Diarrhea History of crack cocaine use Morbid obesity Smoking addiction Home Medications sertraline 50 mg PO DAILY 09/26/19 [History Last Taken 11/14/19] albuterol sulfate 90 mcg/actuation aerosol inhaler 2 puff INHALATION Q4H PRN g 10/24/19 [History Last Taken Unknown] pregabalin 50 mg capsule 50 mg PO BID 10/24/19 [History Last Taken 11/14/19] cyclobenzaprine 10 mg PO QHS PRN PRN #10 tablet 11/12/20 [Rx Last Taken Unknown] hydrocodone-acetaminophen 1 tab PO Q6H PRN PRN 3 Days #10 tablet 11/12/20 [Rx Last Taken Unknown] dexamethasone 6 mg tablet 6 mg PO DAILY #10 tab 03/20/21 [Rx Last Taken Unknown] azithromycin 250 mg tablet See Rx Instructions PO .COMPLEX #6 tab 04/01/21 [Rx Last Taken Unknown] epcdtfti-esiyhp-LR-thonzonium [Cortisporin-TC] 4 drp LEFT EAR TID #10 ml 05/27/21 [Rx Last Taken Unknown] Allergy/AdvReac Type Severity Reaction Status Date / Time tramadol Allergy Itching Verified 05/27/21 10:00 gabapentin AdvReac Nausea Verified 05/27/21 10:00 metronidazole [From Flagyl] AdvReac Upset Verified 05/27/21 10:00 Stomach Family History Father Hypertension Surgical History History of hysterectomy History of tonsillectomy Hx of fusion of cervical spine Social History Smoking Status: Current every day smoker tobacco type: cigarettes alcohol intake: never substance use type: does not use ROS ROS ED ROS Narrative Constitutional: No fever, no chills. HEENT: No sore throat. No neck pain. No loss of vision. No rhinorrhea. Left ear pain. Cardiovascular: No chest pain. No palpitations. No pedal edema. Respiratory: No cough, no shortness of breath. Abdominal: No abdominal pain. No nausea. No vomiting. Genitourinary: No dysuria. No hematuria. Musculoskeletal: No myalgias. No arthralgias. Neurologic: No headaches. No dizziness. No lightheadedness. Skin: No rash. No change in color. Psychiatric: No depression. No anxiety. EXAM Physical Exam Narrative Exam Narrative: Afebrile. Vital signs noted. HEENT: Normocephalic. Atraumatic. PERRL, EOMI. Neck soft and supple. No point tenderness or step off. Inspection of the left TM reveals a narrow canal with swelling and mild erythema but no discharge. No mastoid tenderness or erythema. Full range of motion of neck without meningismus. Cardiovascular: Regular rate and rhythm. No murmurs, rubs, or gallops appreciated. Respiratory: No tachypnea. Lungs clear to auscultation bilaterally. Gastrointestinal: Abdomen soft, nontender, with normoactive bowel sounds. No rebound or guarding. Neurological: Awake. Alert. Nonfocal, nonlateralizing. Skin: No rash. Normal color. No pallor. Musculoskeletal: No pedal edema. Full range of motion extremities. Const Vital Signs: 05/27/21 10:00 Temperature 96.9 F L Temperature Source Temporal Pulse Rate 98 Respiratory Rate 18 Blood Pressure 110/93 H Blood Pressure Mean 98 Pulse Ox 97 Oxygen Delivery Method Room Air MDM MDM MDM Narrative Medical decision making narrative: I do feel the patient has an otitis externa. I do not feel that it requires a wick. She was given a prescription for Cortisporin otic drops to put in 4 times a day into her left ear. She will follow up with her supervisor smoke control, Dr. Contreras. Return instructions were reviewed. Disposition is discharged home in stable condition. Discharge Plan Triage Chief Complaint: Ear Problem ED Provider: Facundo Agrawal Dx/Rx/DC Orders Clinical Impression: Otalgia, Otitis externa Instructions: ED External Ear Infection (Adult) Prescriptions: New Cortisporin-TC 3.3-3-10-0.5 mg/mL drops,suspension 4 drp LEFT EAR TID Qty: 10 RF: 0 No Action albuterol sulfate [Proventil HFA] 90 mcg/actuation HFA aerosol inhaler 2 puff INHALATION Q4H PRN (Reason: Sob &/Or Wheezing) RF: 0 pregabalin [Lyrica] 50 mg capsule 50 mg PO BID RF: 0 dexamethasone [Decadron] 6 mg tablet 6 mg PO DAILY Qty: 10 RF: 0 azithromycin 250 mg tablet See Rx Instructions PO .COMPLEX Qty: 6 RF: 0 sertraline 50 MG tablet 50 mg PO DAILY RF: 0 cyclobenzaprine [cyclobenzaprine] 10 MG tablet 10 mg PO QHS PRN PRN (Reason: Muscle Spasm) Qty: 10 RF: 0 hydrocodone-acetaminophen [hydrocodone-acetaminophen] 1 TABLET tablet 1 tab PO Q6H PRN PRN (Reason: Pain) 3 Days Qty: 10 RF: 0 Primary Care Provider: Bird Dietrich Referrals: Mt Freire MD [STAFF PHYSICIAN] - As soon as possible Bird Dietrich MD [Primary Care Provider] - 3-5 Days if not improving Disposition Disposition: Home, Self Care
== END 2021-05-27 11:04 | disposition home or self-care (01) ==
PROVIDERS: Emergency Provider Emergency Medicine; PCP Family Medicine; Visit Provider Emergency Medicine
DX: H92.09 Otalgia, unspecified ear (principal); J44.9 Chronic obstructive pulmonary disease, unspecified; H60.90 Unspecified otitis externa, unspecified ear
CPT/HCPCS: 99282

== ENCOUNTER 2021-06-16 20:33 | Emergency (ER) | payer MEDICARE, MEDICAID, SELFPAY ==
[2021-06-16 20:33] VITALS: BP 142/82; PULSE 100; RESP 18; TEMP 35.7; O2SAT 99; BMI 41.1
--- NOTE | 2021-06-16 21:54 | RAD_ITS ---
HISTORY: Trauma, right-sided pain after fall down steps EXAMINATION/TECHNIQUE: XR Ribs Unilateral W/ PA Chest Min 3 Views: 5 views COMPARISON: 09/23/16 FINDINGS: LINES/DEVICES: None. LUNGS: No consolidation, edema or effusion. No pneumothorax. MEDIASTINUM AND CARDIOVASCULAR STRUCTURES: Cardiac silhouette not enlarged. Central airways and mediastinal contour are unremarkable. RIBS AND OSSEOUS STRUCTURES: Unremarkable. No evidence of displaced rib fractures. RAD/Ribs Uni Min 3V w/PA Chest IMPRESSION: Negative chest and rib series. at 2259 Reported and signed by: Nas Escalante MD Electronically Signed: Nas Escalante MD at 22:58 EDT ,
--- NOTE | 2021-06-16 22:00 | ED.VIS.FALL ---
HPI HPI - Fall History of Present Illness Chief Complaint: Fall Narrative Narrative: 50-year-old female presenting after mechanical fall a couple of days ago. Patient states she was walking and slipped fell on her buttocks and slid down the steps. She estimates about 17. She did not fall head over heels or and and. She simply slid. She is able to get up and ambulate. Has been ambulating for couple of days. She complains of back pain on the right flank as well as right hip. Patient has history of falls in the past due to walking instability. She denies lightheadedness, dizziness, chest pain, palpitations, shortness of breath prior to the fall. PFSH PFSH Medical History Abdominal pain Anxiety Arthritis Back problem Black tarry stools Chest pain Chronic back pain Constipation COPD (chronic obstructive pulmonary disease) Depression Diarrhea History of crack cocaine use Morbid obesity Smoking addiction Home Medications sertraline 50 mg PO DAILY 09/26/19 [History Last Taken 11/14/19] albuterol sulfate 90 mcg/actuation aerosol inhaler 2 puff INHALATION Q4H PRN g 10/24/19 [History Last Taken Unknown] pregabalin 50 mg capsule 50 mg PO BID 10/24/19 [History Last Taken 11/14/19] cyclobenzaprine 10 mg PO QHS PRN PRN #10 tablet 11/12/20 [Rx Last Taken Unknown] hydrocodone-acetaminophen 1 tab PO Q6H PRN PRN 3 Days #10 tablet 11/12/20 [Rx Last Taken Unknown] dexamethasone 6 mg tablet 6 mg PO DAILY #10 tab 03/20/21 [Rx Last Taken Unknown] azithromycin 250 mg tablet See Rx Instructions PO .COMPLEX #6 tab 04/01/21 [Rx Last Taken Unknown] qpsiccpy-dzwzzi-JP-thonzonium [Cortisporin-TC] 4 drp LEFT EAR TID #10 ml 05/27/21 [Rx Last Taken Unknown] tizanidine [Zanaflex] 4 mg PO Q8H PRN #14 tab 06/16/21 [Rx Last Taken Unknown] lidocaine [Lidoderm] 1 patch TOPICAL DAILY PRN #10 ea 06/17/21 [Rx Last Taken Unknown] Allergy/AdvReac Type Severity Reaction Status Date / Time tramadol Allergy Itching Verified 06/16/21 20:36 gabapentin AdvReac Nausea Verified 06/16/21 20:36 metronidazole [From Flagyl] AdvReac Upset Verified 06/16/21 20:36 Stomach Family History Father Hypertension Surgical History History of hysterectomy History of tonsillectomy Hx of fusion of cervical spine Social History Smoking Status: Current every day smoker tobacco type: cigarettes alcohol intake: never substance use type: does not use ROS ROS ED Constitutional Constitutional ED: Denies chills or fever(s) Eyes Eyes: Denies blurry vision or diplopia ENT ENT ED: Denies rhinorrhea or sore throat Cardiovascular Cardiovascular: Denies chest pain or palpitations Respiratory/Chest Respiratory/Chest: Reports other Details: Right lower rib pain posteriorly ; Denies cough or dyspnea Gastrointestinal Gastrointestinal: Denies abdominal pain, nausea or vomiting Genitourinary Genitourinary ED: Denies dysuria or hematuria Musculoskeletal Musculoskeletal: Reports back pain and other Details: Right hip pain ; Denies arthralgias or myalgias Integumentary Denies rash EXAM Physical Exam Const Vital Signs: 06/16/21 20:33 06/16/21 21:33 Temperature 96.2 F L Temperature Source Temporal Pulse Rate 100 Respiratory Rate 18 Respiratory Depth Normal Respiratory Pattern Normal Blood Pressure 142/82 H Blood Pressure Mean 102 Pulse Ox 99 Oxygen Delivery Method Room Air Room Air Positive well nourished General Appearance ED: NAD HEENT Reports normocephalic atraumatic Eyes PERRL and EOMs intact bilaterally Chest Wall Chest Narrative: Right posterior rib pain. Equal symmetric breath sounds or chest wall rise. Resp normal respiratory effort and clear to auscultation bilaterally Cardio regular rate and regular rhythm GI non-tender and non-distended Palpation: soft Back/Spine Lumbar Spine / Lower Back: paraspinal muscle tenderness right Extremity Extremity Narrative: Mild tenderness palpation right hip. Patient is ambulatory with antalgic gait. Neuro oriented x3 and CN's II-XII intact bilaterally Sensorium / Orientation: alert Psych mental status grossly normal and thought process normal Skin Lesions: no lesions Rashes: no rashes MDM MDM MDM Narrative Medical decision making narrative: Patient given a shot of Toradol because she is driving. X-rays of the right ribs and the right hip and pelvis on my interpretation showed no acute fractures. There is no evidence of pneumothorax or other acute cardiopulmonary process. Patient was given prescription for Zanaflex as well. She requests some Lidoderm patches which will be provided. Patient discharged in stable condition. Impression: 1. Mechanical fall 2. Right rib contusion 3. right hip contusion Radiography Diagnostic Testing: Clinical Impression(s) from Imaging Studies Ribs w/Chest X-Ray 06/16/21 21:54 IMPRESSION: Negative chest and rib series. at 2259 Reported and signed by: Nas Escalante MD Electronically Signed: Nas Escalante MD at 22:58 EDT Reading Location ID and State: [facility] / [place] Tel , Service support , Hip/Pelvis X-Ray 06/16/21 22:20 IMPRESSION: No acute bony abnormality. at 2256 Reported and signed by: Nas Escalante MD Electronically Signed: Nas Escalante MD at 22:55 EDT Reading Location ID and State: [id number] / [place] Tel , Service support , Discharge Plan Triage Chief Complaint: Fall ED Provider: Lyndon Johansen Dx/Rx/DC Orders Instructions: ED Hip Contusion, ED Contusion, Rib, ED Fall Prevention Prescriptions: New tizanidine [Zanaflex] 4 mg tablet 4 mg PO Q8H PRN (Reason: muscle spasticity) Qty: 14 RF: 0 lidocaine [Lidoderm] 5 % adhesive patch,medicated 1 patch topical DAILY PRN (Reason: back pain) Qty: 10 RF: 0 No Action albuterol sulfate [Proventil HFA] 90 mcg/actuation HFA aerosol inhaler 2 puff INHALATION Q4H PRN (Reason: Sob &/Or Wheezing) RF: 0 pregabalin [Lyrica] 50 mg capsule 50 mg PO BID RF: 0 dexamethasone [Decadron] 6 mg tablet 6 mg PO DAILY Qty: 10 RF: 0 azithromycin 250 mg tablet See Rx Instructions PO .COMPLEX Qty: 6 RF: 0 sertraline 50 MG tablet 50 mg PO DAILY RF: 0 cyclobenzaprine [cyclobenzaprine] 10 MG tablet 10 mg PO QHS PRN PRN (Reason: Muscle Spasm) Qty: 10 RF: 0 hydrocodone-acetaminophen [hydrocodone-acetaminophen] 1 TABLET tablet 1 tab PO Q6H PRN PRN (Reason: Pain) 3 Days Qty: 10 RF: 0 Cortisporin-TC 3.3-3-10-0.5 mg/mL drops,suspension 4 drp LEFT EAR TID Qty: 10 RF: 0 Primary Care Provider: Bird Dietrich Referrals: Bird Dietrich MD [Primary Care Provider] - Disposition Disposition: Home, Self Care Discharge Date/Time: 06/16/21 23:28
--- NOTE | 2021-06-16 22:20 | RAD_ITS ---
HISTORY: pain EXAMINATION/TECHNIQUE: XR Hip Unilateral with Pelvis when performed; 2-3 Views: COMPARISON: None FINDINGS: BONES/JOINTS: No acute fracture or dislocation. Preservation of the joint spaces. No sclerotic or destructive changes observed. SOFT TISSUES: No soft tissue swelling or gas. No radiopaque foreign body. RAD/HIP, UNI W/ Pelvis 2-3 Views IMPRESSION: No acute bony abnormality. at 2256 Reported and signed by: Nas Escalante MD Electronically Signed: Nas Escalante MD at 22:55 EDT ,
[2021-06-16] MEDS: Ketorolac 15 MG/ML Vial IM (22:43)
[2021-06-16] MEDS: Lidocaine 5% Patch 1 PATCH TOPICAL (22:44)
== END 2021-06-16 23:28 | disposition home or self-care (01) ==
PROVIDERS: Emergency Provider Student in an Organized Health Care Education/Training Program; PCP Family Medicine; Visit Provider Student in an Organized Health Care Education/Training Program
DX: S70.01XA Contusion of right hip, initial encounter (principal); J44.9 Chronic obstructive pulmonary disease, unspecified; S20.211A Contusion of right front wall of thorax, initial encounter; M54.9 Dorsalgia, unspecified; G89.29 Other chronic pain; W10.9XXA Fall (on) (from) unspecified stairs and steps, initial encounter
CPT/HCPCS: 71101; 73502; 96372; 99283

== ENCOUNTER 2021-07-12 19:19 | Emergency (ER) | payer MEDICARE, MEDICAID, SELFPAY ==
[2021-07-12 19:20] VITALS: BP 172/101; PULSE 113; RESP 16; TEMP 36.6; O2SAT 97; BMI 42.0
--- NOTE | 2021-07-12 19:42 | NURSING ---
Pt does not want to file as workman comp. PT called her boss and talk to her boss about it.
--- NOTE | 2021-07-12 19:52 | EX.ED.DYSGE1 ---
HPI <Dr. Kayla Rincon MD - Last Filed: 07/13/21 01:16> History of Present Illness Chief Complaint: Burn <ADALGISA FONSECA - Last Filed: 07/13/21 01:02> History of Present Illness Informant: patient Onset/Context/Timing Onset: - (20 to 25 minutes prior to arrival) Current Severity: 12/29 Narrative Narrative: Patient presents secondary to hot grease that splashed onto her face. 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 Patient states that this is not [facility] because she did not follow protocol. Patient states that the pain in her right eye is 10 out of 10 and describes it as burning. Patient does have a contact in her right eye. PFSH <Dr. Kayla Rincon MD - Last Filed: 07/13/21 01:16> PFSH Medical History Abdominal pain Anxiety Arthritis Back problem Black tarry stools Chest pain Chronic back pain Constipation COPD (chronic obstructive pulmonary disease) Depression Diarrhea History of crack cocaine use Morbid obesity Smoking addiction Home Medications sertraline 50 mg PO DAILY 09/26/19 [History Last Taken 11/14/19] albuterol sulfate 90 mcg/actuation aerosol inhaler 2 puff INHALATION Q4H PRN g 10/24/19 [History Last Taken Unknown] pregabalin 50 mg capsule 100 mg PO BID 10/24/19 [History Last Taken 11/14/19] cyclobenzaprine 10 mg PO QHS PRN PRN #10 tablet 11/12/20 [Rx Last Taken Unknown] Allergy/AdvReac Type Severity Reaction Status Date / Time tramadol Allergy Itching Verified 07/12/21 19:21 gabapentin AdvReac Nausea Verified 07/12/21 19:21 metronidazole [From Flagyl] AdvReac Upset Verified 07/12/21 19:21 Stomach Family History Father Hypertension Surgical History History of hysterectomy History of tonsillectomy Hx of fusion of cervical spine Social History Smoking Status: Current every day smoker tobacco type: cigarettes alcohol intake: never substance use type: does not use <ADALGISA FONSECA - Last Filed: 07/13/21 01:02> ROS ED Constitutional Constitutional ED: Reports fever(s) Eyes Eyes: Reports blurry vision right, photophobia and requires corrective lenses; Denies discharge from eye(s) or spots in vision ENT ENT ED: Denies discharge from eye(s), rhinorrhea or sore throat Cardiovascular Cardiovascular: Denies chest pain Respiratory/Chest Respiratory/Chest: Denies cough or dyspnea Gastrointestinal Gastrointestinal: Denies abdominal pain, nausea or vomiting Genitourinary Genitourinary ED: Denies dysuria, hematuria or urinary frequency Musculoskeletal Musculoskeletal: Denies myalgias Integumentary Reports erythema Neurologic Neurologic: Denies headache(s) or weakness Psychiatric Psychiatric: Denies anxiety or depression Endocrine Endocrinology: Denies polyuria EXAM <Dr. Kayla Rincon MD - Last Filed: 07/13/21 01:16> Physical Exam Const Vital Signs: 07/12/21 19:20 07/12/21 20:22 Temperature 97.8 F Temperature Source Temporal Pulse Rate 113 H 100 Respiratory Rate 16 18 Blood Pressure 172/101 H 144/78 H Blood Pressure Mean 124 Pulse Ox 97 98 Oxygen Delivery Method Room Air <ADALGISA FONSECA - Last Filed: 07/13/21 01:02> Physical Exam Const Vital Signs: 07/12/21 19:20 07/12/21 20:22 Temperature 97.8 F Temperature Source Temporal Pulse Rate 113 H 100 Respiratory Rate 16 18 Blood Pressure 172/101 H 144/78 H Blood Pressure Mean 124 Pulse Ox 97 98 Oxygen Delivery Method Room Air Positive well nourished and well developed General Appearance ED: well developed HEENT Reports moist mucous membranes Negative for trauma or tenderness Eyes PERRL and EOMs intact bilaterally Periorbital: periorbital findings abnormal right (Erythema to medial superior periorbital.) Pupil: PERRL Neck no lymphadenopathy Chest Wall inspection of chest normal and palpation of chest normal Resp normal respiratory effort and clear to auscultation bilaterally Cardio regular rate, regular rhythm and no murmurs GI normal to inspection, nondistended, normoactive bowel sounds Extremity normal to inspection Neuro oriented x3 Sensorium / Orientation: alert Psych mental status grossly normal Skin Skin Narrative: Erythema to right and left maxilla areas, without blisters. MDM <Dr. Kayla Rincon MD - Last Filed: 07/13/21 01:16> [facility] Treatment and Re-Evaluation Narrative: Patient seen and evaluated with [employer] student. I personally interviewed and examined the patient. I was involved in all aspects of patient's orders, interpretation of results, and treatment. Patient presents after splashing hot grease on her face at work. Patient has erythematous lesions consistent with first-degree burn on the right side of her face. Patient lying in bed no acute distress. Ice pack held over her eye and right face. Head neck examination reveals 4 areas of first-degree burn around her right eye. Eyelid is not edematous. No conjunctival injection or tearing. Extraocular movements fully intact. Heart is regular rate and rhythm. Lung sounds are clear. Abdomen is soft and nontender. Neuro exam normal. Discussed with patient's that we typically will treat this with Tylenol or ibuprofen as well as topical antibiotic ointment. She has this at home to use. Patient reports this visit is not to be included under Worker's Comp. She will follow-up with her PCP. <ADALGISA FONSECA - Last Filed: 07/13/21 01:02> [facility] Narrative Medical decision making narrative: Patient will be given naproxen for pain. Visual acuity ordered. Ice pack applied to right eye Treatment and Re-Evaluation Narrative: Patient's visual acuity is 20/40 right, 20/30 left, 20/30 bilaterally. On reevaluation, patient states that she refused the naproxen due to insurance reasons. Home care reviewed with patient, who is agreeable to discharge home with supportive care. Patient is aware to follow-up with primary care physician. Discharge Plan Triage Chief Complaint: Burn ED Provider: Kayla Rincon Dx/Rx/DC Orders Clinical Impression: Burn Instructions: ED First- and Second-Degree [employer] ... Prescriptions: No Action albuterol sulfate [Proventil HFA] 90 mcg/actuation HFA aerosol inhaler 2 puff INHALATION Q4H PRN (Reason: Sob &/Or Wheezing) RF: 0 pregabalin [Lyrica] 50 mg capsule 100 mg PO BID RF: 0 sertraline 50 MG tablet 50 mg PO DAILY RF: 0 cyclobenzaprine [cyclobenzaprine] 10 MG tablet 10 mg PO QHS PRN PRN (Reason: Muscle Spasm) Qty: 10 RF: 0 Stand Alone Forms: ED Work / School Excuse Primary Care Provider: Bird Dietrich Referrals: Bird Dietrich MD [Primary Care Provider] - 1-2 Weeks Disposition Disposition: Home, Self Care Discharge Date/Time: 07/12/21 20:23
[2021-07-12 20:22] VITALS: BP 144/78; PULSE 100; RESP 18; O2SAT 98
== END 2021-07-12 20:23 | disposition home or self-care (01) ==
PROVIDERS: Emergency Provider Emergency Medicine; PCP Family Medicine; Visit Provider Emergency Medicine
DX: T20.10XA Burn of first degree of head, face, and neck, unspecified site, initial encounter (principal); J44.9 Chronic obstructive pulmonary disease, unspecified; X10.2XXA Contact with fats and cooking oils, initial encounter; Y93.9 Activity, unspecified; Y99.0 Civilian activity done for income or pay; Y92.89 Other specified places as the place of occurrence of the external cause; M54.9 Dorsalgia, unspecified; G89.29 Other chronic pain; F17.210 Nicotine dependence, cigarettes, uncomplicated
CPT/HCPCS: 99283

== ENCOUNTER 2021-11-29 17:30 | Emergency (ER) | payer MEDICARE, MEDICAID, SELFPAY ==
[2021-11-29 17:31] VITALS: BP 149/62; PULSE 123; RESP 16; TEMP 36.7; O2SAT 98; BMI 43.6
--- NOTE | 2021-11-29 18:26 | EX.ED.DYSGE1 ---
HPI History of Present Illness Chief Complaint: Cough Informant: patient Narrative Narrative: Patient presents because her work says she has to get checked out. Patient has about 2 days of myalgias, nonproductive cough, diarrhea and a little sore throat. She was exposed to COVID. She has a home positive test for COVID. She called work and they stated she has to be evaluated in the emergency department. She is not having vomiting. She is not having fevers. She has no chest pain. She is able to eat and drink. In fact she is drinking an [employer] Right now. She has no palpitations despite her first heart rate being elevated. PFSH PFSH Medical History Abdominal pain Anxiety Arthritis Back problem Black tarry stools Chest pain Chronic back pain Constipation COPD (chronic obstructive pulmonary disease) Depression Diarrhea History of crack cocaine use Morbid obesity Smoking addiction Home Medications sertraline 50 mg tablet 50 mg PO DAILY 09/26/19 [History Last Taken 11/14/19] albuterol sulfate 90 mcg/actuation aerosol inhaler (Proventil HFA) 2 puff inhalation Q4H PRN Sob &/Or Wheezing 10/24/19 [History Last Taken Unknown] pregabalin 50 mg capsule (Lyrica) 100 mg PO BID 10/24/19 [History Last Taken 11/14/19] cyclobenzaprine 10 mg tablet 10 mg PO QHS PRN PRN Muscle Spasm #10 TABLETS 11/12/20 [Rx Last Taken Unknown] Allergy/AdvReac Type Severity Reaction Status Date / Time tramadol Allergy Itching Verified 11/29/21 17:30 gabapentin AdvReac Nausea Verified 11/29/21 17:30 metronidazole [From Flagyl] AdvReac Upset Verified 11/29/21 17:30 Stomach Family History Father Hypertension Surgical History History of hysterectomy History of tonsillectomy Hx of fusion of cervical spine Social History Smoking Status: Current every day smoker tobacco type: cigarettes alcohol intake: never substance use type: does not use ROS ROS ED Constitutional Constitutional ED: Denies chills or fever(s) Eyes Eyes: Denies change in vision ENT ENT ED: Reports rhinorrhea and sore throat Cardiovascular Cardiovascular: Denies chest pain, palpitations or racing heartbeat Respiratory/Chest Respiratory/Chest: Reports cough; Denies dyspnea or sputum Gastrointestinal Gastrointestinal: Reports diarrhea; Denies abdominal pain, constipation, melena, nausea or vomiting Genitourinary Genitourinary ED: Denies dysuria or hematuria Musculoskeletal Musculoskeletal: Reports myalgias Integumentary Denies rash Neurologic Neurologic: Denies headache(s), paresthesias or weakness Psychiatric Psychiatric: Reports anxiety Endocrine Endocrinology: Denies polydipsia or polyuria Hematologic/Lymphatic Hematologic/Lymphatic: Denies easy bleeding, easy bruising or lymphadenopathy Allergic/Immunologic Allergic/Immunologic ED: Denies urticaria EXAM Physical Exam Const Vital Signs: 11/29/21 17:31 11/29/21 17:34 Temperature 98.0 F Temperature Source Temporal Pulse Rate 123 H Respiratory Rate 16 Respiratory Effort Normal Non-Labored Respiratory Depth Normal Respiratory Pattern Normal Blood Pressure 149/62 H Blood Pressure Mean 91 Pulse Ox 98 Oxygen Delivery Method Room Air Room Air Positive well nourished and well developed General Appearance ED: well developed and NAD HEENT Reports moist mucous membranes HEENT Narrative: No exudate. She is drinking easily. Normal voice. Eyes General Eye ED: Negative for scleral icterus Neck no JVD Neck Narrative: No stridor. Chest Wall inspection of chest normal Resp normal respiratory effort and clear to auscultation bilaterally Resp Narrative: No pain with a deep breath Auscultation: Negative for rales, rhonchi or wheezes Cardio regular rate and regular rhythm Rate: other Other Details: Heart rate is about 90-95 now. No murmur gallop or rub. ; Negative for tachycardic GI normal to inspection, nondistended, normoactive bowel sounds and non-tender Palpation: soft Back/Spine no CVA tenderness Extremity normal to inspection General Extremety ED: Negative for edema or tenderness General Extremity: Negative for edema Neuro Sensorium / Orientation: alert Psych mental status grossly normal Skin no rashes or lesions noted MDM MDM MDM Narrative Medical decision making narrative: I discussed options with the patient. I explained that medically she has no need for a COVID test. She has 1 positive and she has symptoms. But her work needs a test that she did not do at home. I will send off a PCR. Since she already has a positive test and all the symptoms her pretest probability is high. Doing a test with a 15% false-negative rate is not useful. She does not want any therapy. She is eating and drinking fine. She would like to go she just wants a note for work. Discharge Plan Triage Chief Complaint: Cough ED Provider: Cuco Velasquez Dx/Rx/DC Orders Clinical Impression: Encounter for screening for COVID-19 Instructions: Coronavirus Disease 2019 (COVID-19): Caring for Yourself or Others Prescriptions: No Action albuterol sulfate [Proventil HFA] 90 mcg/actuation HFA aerosol inhaler 2 puff INHALATION Q4H PRN (Reason: Sob &/Or Wheezing) pregabalin [Lyrica] 50 mg capsule 100 mg PO BID sertraline 50 MG tablet 50 mg PO DAILY cyclobenzaprine [cyclobenzaprine] 10 MG tablet 10 mg PO QHS PRN PRN (Reason: Muscle Spasm) Qty: 10 0RF Stand Alone Forms: ED Work / School Excuse Primary Care Provider: Bird Dietrich Referrals: Bird Dietrich MD [Primary Care Provider] - 10-14 Days if not better Disposition Disposition: Home, Self Care
[2021-11-29 18:31] VITALS: O2SAT 97
== END 2021-11-29 18:44 | disposition home or self-care (01) ==
PROVIDERS: Emergency Provider Emergency Medicine; PCP Family Medicine; Visit Provider Emergency Medicine
DX: Z20.822 Contact with and (suspected) exposure to COVID-19 (principal); J44.9 Chronic obstructive pulmonary disease, unspecified; J02.9 Acute pharyngitis, unspecified; R19.7 Diarrhea, unspecified; M79.10 Myalgia, unspecified site; M54.9 Dorsalgia, unspecified
CPT/HCPCS: 87635; 99282; U0003; U0005

== ENCOUNTER → 2022-05-11 | Outpatient (CLI) | payer MEDICARE, MEDICAID, SELFPAY ==
--- NOTE | 2022-05-11 08:25 | RAD_ITS ---
STUDY: X-RAY - ESOPHAGUS (BARIUM SWALLOW) WITH FLUOROSCOPY REASON FOR EXAM: Female, 51 years old. DYSPHAGIA TECHNIQUE: 16 view(s) of the esophagus were obtained following swallowing of barium. FLUOROSCOPY TIME (if supplied): (36 seconds) minutes/seconds COMPARISON: None. FINDINGS: There is no demonstrated esophageal foreign body. There is no demonstrated stricture or mucosal abnormality. Normal gastroesophageal junction, without a demonstrated hiatal hernia. The patient ingested a 12 mm tablet of barium without any difficulty. Normal visualized aortic arch and descending thoracic aorta. Normal visualized pulmonary parenchyma. Normal visualized osseous structures of the thorax. RAD/Esophagus Single Contrast IMPRESSION: Normal plain film x-ray examination (barium swallow) of the esophagus. Electronically Signed: Bobby Rubio MD at 15:20 EST ,
== END | disposition home or self-care (01) ==
LOC: RAD 08:20
PROVIDERS: PCP Family Medicine; Referring Provider Otolaryngology; Visit Provider Otolaryngology
DX: K21.9 Gastro-esophageal reflux disease without esophagitis (principal)
CPT/HCPCS: 74220

== ENCOUNTER 2022-06-07 11:53 | Emergency (ER) | payer MEDICARE, MEDICAID, SELFPAY ==
[2022-06-07 11:54] VITALS: BP 139/76; PULSE 78; RESP 22; TEMP 36.1; O2SAT 100; BMI 43.3
--- NOTE | 2022-06-07 12:20 | ED.VIS.BACK ---
HPI History of Present Illness Chief Complaint: Back Narrative Narrative: Patient presents with back pain that has been getting progressively worse over the past 2 days. Patient has a history of sciatica. Patient states this feels similar to prior episodes of her sciatica. Patient states her pain is worse with standing upright. Patient states her pain is in her low back and radiates down her left leg. Patient describes her pain as sharp. Patient states it is constant. Patient denies any trauma or injury. Patient denies any bowel or bladder changes. Patient denies any saddle anesthesia. Patient denies any paresthesias or weakness. Prior similar symptoms: Yes PFSH PFSH Medical History Abdominal pain Anxiety Arthritis Back problem Black tarry stools Chest pain Chronic back pain Constipation COPD (chronic obstructive pulmonary disease) Depression Diarrhea History of crack cocaine use Morbid obesity Smoking addiction Home Medications sertraline 50 mg tablet 50 mg PO DAILY 09/26/19 [History Last Taken 11/14/19] albuterol sulfate 90 mcg/actuation aerosol inhaler (Proventil HFA) 2 puff inhalation Q4H PRN Sob &/Or Wheezing 10/24/19 [History Last Taken Unknown] pregabalin 50 mg capsule (Lyrica) 100 mg PO BID 10/24/19 [History Last Taken 11/14/19] cyclobenzaprine 10 mg tablet 10 mg PO QHS PRN PRN Muscle Spasm #10 TABLETS 11/12/20 [Rx Last Taken Unknown] hydrocodone-acetaminophen 5-325mg 5mg-325mg 1 tab PO Q6H PRN PRN Pain 3 days #10 TABLETS 06/07/22 [Rx Last Taken Unknown] Allergy/AdvReac Type Severity Reaction Status Date / Time tramadol Allergy Itching Verified 06/07/22 11:58 gabapentin AdvReac Nausea Verified 06/07/22 11:58 metronidazole [From Flagyl] AdvReac Upset Verified 06/07/22 11:58 Stomach Family History Father Hypertension Surgical History History of hysterectomy History of tonsillectomy Hx of fusion of cervical spine Social History Smoking Status: Current every day smoker tobacco type: cigarettes alcohol intake: never substance use type: does not use ROS ROS ED Constitutional Constitutional ED: Denies chills or fever(s) Eyes Eyes: Denies blurry vision or change in vision ENT ENT ED: Reports rhinorrhea; Denies sore throat Cardiovascular Cardiovascular: Denies chest pain or palpitations Respiratory/Chest Respiratory/Chest: Reports cough and dyspnea Gastrointestinal Gastrointestinal: Reports diarrhea; Denies nausea or vomiting Genitourinary Genitourinary ED: Denies dysuria or hematuria Musculoskeletal Musculoskeletal: Reports back pain; Denies neck pain Integumentary Denies abscess or rash Neurologic Neurologic: Denies headache(s) or weakness Allergic/Immunologic Allergic/Immunologic ED: Denies mouth swelling or urticaria EXAM Physical Exam Const Vital Signs: 06/07/22 11:54 Temperature 97.0 F L Temperature Source Temporal Pulse Rate 78 Respiratory Rate 22 H Blood Pressure 139/76 H Blood Pressure Mean 97 Pulse Ox 100 Oxygen Delivery Method Room Air Positive well nourished, well developed and obese General Appearance ED: well developed and NAD Nutritional Appearance: obese HEENT Reports moist mucous membranes Neck supple and no JVD GI normal to inspection, nondistended, normoactive bowel sounds, soft to palpation and non-tender Back/Spine Back/Spine Narrative: There is tenderness over the left lumbar paraspinal muscles. There is no midline tenderness. There is no bony crepitance or step-off. There is also some mild tenderness over the left sciatic notch. Strength is 5/5 bilaterally in the lower extremities. There are no sensory deficits noted. Lumbar Spine / Lower Back: ROM limited and straight leg raise negative bilaterally Neuro oriented x3 and no sensory deficits noted Sensorium / Orientation: alert Motor Exam: strength 5/5 throughout Psych mental status grossly normal Skin no rashes or lesions noted MDM MDM MDM Narrative Medical decision making narrative: I do not feel any imaging is necessary at this time. Patient will be given a dose of [place] here. Patient was given a prescription for a short course of [place]. Patient was instructed to use ice to the area. Patient was instructed to continue her other medications as previously prescribed. Patient was instructed that we will follow-up with her primary care physician in 5 to 7 days. Patient understood and was agreeable with the plan. All questions were answered. Discharge Plan Triage Chief Complaint: Back ED Provider: Jake Malin Dx/Rx/DC Orders Clinical Impression: Sciatica of left side Instructions: ED Sciatica Prescriptions: New hydrocodone-acetaminophen [hydrocodone-acetaminophen] 5-325 mg tablet 1 tab PO Q6H PRN PRN (Reason: Pain) 3 Days Qty: 10 0RF No Action albuterol sulfate [Proventil HFA] 90 mcg/actuation HFA aerosol inhaler 2 puff INHALATION Q4H PRN (Reason: Sob &/Or Wheezing) pregabalin [Lyrica] 50 mg capsule 100 mg PO BID sertraline 50 MG tablet 50 mg PO DAILY cyclobenzaprine [cyclobenzaprine] 10 MG tablet 10 mg PO QHS PRN PRN (Reason: Muscle Spasm) Qty: 10 0RF Primary Care Provider: Bird Dietrich Referrals: Bird Dietrich MD [Primary Care Provider] - 3-5 Days Disposition Disposition: Home, Self Care
[2022-06-07] MEDS: HYDROcodone Bitartrate/Apap 5/325 Tablet PO (12:36)
== END 2022-06-07 12:37 | disposition home or self-care (01) ==
PROVIDERS: Emergency Provider Emergency Medicine; PCP Family Medicine; Visit Provider Emergency Medicine
DX: M54.32 Sciatica, left side (principal); J44.9 Chronic obstructive pulmonary disease, unspecified; F41.9 Anxiety disorder, unspecified; F32.A Depression, unspecified; Z79.899 Other long term (current) drug therapy; F17.210 Nicotine dependence, cigarettes, uncomplicated
CPT/HCPCS: 99283

== ENCOUNTER 2022-10-04 21:46 | Emergency (ER) | payer MEDICARE, MEDICAID, SELFPAY ==
[2022-10-04 21:47] VITALS: BP 131/103; PULSE 134; RESP 24; TEMP 36.2; O2SAT 98; BMI 41.8
--- NOTE | 2022-10-04 22:58 | EX.ED.DYSGE1 ---
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 She was brought in by police secondary to concerns over suicidal ideation. Patient states that her boyfriend with whom she lives with cheated on her and while they were fighting over the cheating allegations police were called. The patient states that she was trying to make her boyfriend feel bad and in doing so voiced that if he continues to cheat or he leaves her that she might as well just kill herself. Secondary to hearing this police then brought the patient to the ER for psychiatric evaluation. The patient denies any alcohol or drugs this evening and states that she did in fact say those words but was doing it in order to try to get a response from her boyfriend and that she has no thoughts of hurting herself or anyone else at this time. PFSH PFSH Medical History Abdominal pain Anxiety Arthritis Back problem Black tarry stools Chest pain Chronic back pain Constipation COPD (chronic obstructive pulmonary disease) Depression Diarrhea History of crack cocaine use Morbid obesity PTSD (post-traumatic stress disorder) Smoking addiction Home Medications doxepin 10 mg capsule 10 mg PO QHS sleep #30 caps 08/18/22 [Rx Last Taken Unknown] venlafaxine 75 mg capsule,extended release 24 hr 75 mg PO DAILY #30 caps 08/18/22 [Rx Last Taken Unknown] ramelteon 8 mg tablet 8 mg PO QHS PRN sleep #30 tabs 08/25/22 [Rx Last Taken Unknown] Allergy/AdvReac Type Severity Reaction Status Date / Time tramadol Allergy Itching Verified 10/04/22 21:53 gabapentin AdvReac Nausea Verified 10/04/22 21:53 metronidazole [From Flagyl] AdvReac Upset Verified 10/04/22 21:53 Stomach Family History Father Hypertension Surgical History History of hysterectomy History of tonsillectomy Hx of fusion of cervical spine Social History Smoking Status: Current every day smoker tobacco type: cigarettes alcohol intake: never substance use type: does not use ROS ROS ED Constitutional Constitutional ED: Denies chills or fever(s) ENT ENT ED: Denies sore throat Cardiovascular Cardiovascular: Denies chest pain Respiratory/Chest Respiratory/Chest: Denies cough or dyspnea Gastrointestinal Gastrointestinal: Denies abdominal pain, diarrhea, nausea or vomiting Genitourinary Genitourinary ED: Denies dysuria Musculoskeletal Musculoskeletal: Denies myalgias Integumentary Denies rash Neurologic Neurologic: Denies headache(s) Psychiatric Psychiatric: Reports anxiety and depression; Denies suicidal ideation or suicidal thoughts Hematologic/Lymphatic Hematologic/Lymphatic: Denies easy bleeding or easy bruising EXAM Physical Exam Const Vital Signs: 10/04/22 21:47 Temperature 97.2 F L Temperature Source Temporal Pulse Rate 134 H Respiratory Rate 24 H Blood Pressure 131/103 H Blood Pressure Mean 112 Pulse Ox 98 Oxygen Delivery Method Room Air Positive well nourished, well developed and obese General Appearance ED: well developed Nutritional Appearance: obese HEENT HEENT Narrative: Normocephalic atraumatic Eyes PERRL and EOMs intact bilaterally Neck supple Resp normal respiratory effort and clear to auscultation bilaterally Cardio regular rate and regular rhythm Extremity normal to inspection Neuro oriented x3, CN's II-XII intact bilaterally and no sensory deficits noted Sensorium / Orientation: alert Motor Exam: strength 5/5 throughout Psych Psych Narrative: Patient has a anxious/tearful affect but denies homicidal or suicidal ideation Skin no rashes or lesions noted MDM MDM MDM Narrative Medical decision making narrative: Patient presented to the ER tachycardic and hypertensive but was visibly upset. She denied any current alcohol or drug use. She also denied any suicidal or homicidal ideation. She does admit to saying that she wanted to hurt herself but only did so in trying to create a response with her boyfriend. She denies any previous psychiatric hospitalizations or any previous attempts at self-harm. Therefore at this time patient has a reasonable explanation for why she said what was said but she also low risk for attempting to harm her self as she states she has a safe place to go to and currently is denying homicidal or suicidal ideation. I do not feel that patient would benefit from psychiatric work-up or placement in a psychiatric center as her reaction this evening was secondary to stress and grief. Therefore at this time as patient has a safe place to go to and adamantly denies any active homicidal or suicidal ideation is otherwise safe for discharge History & Record Review Discussion w/independent historian: Patient Discharge Plan Triage Chief Complaint: Suicidal ED Provider: Farooq Carrillo Dx/Rx/DC Orders Clinical Impression: Mood disorder, Smoking addiction Instructions: Understanding Mood Disorders Prescriptions: No Action venlafaxine 75 mg capsule,extended release 24hr 75 mg PO DAILY Qty: 30 2RF doxepin 10 mg capsule 10 mg PO QHS Qty: 30 2RF ramelteon 8 mg tablet 8 mg PO QHS PRN (Reason: sleep) Qty: 30 0RF Primary Care Provider: Bird Dietrich Referrals: Bird Dietrich MD [Primary Care Provider] - Disposition Disposition: Home, Self Care Discharge Date/Time: 10/05/22 00:10
--- NOTE | 2022-10-04 23:17 | ED.RN ---
si precautions dc'd by dr amarilys wilcox [id number].
== END 2022-10-05 00:10 | disposition home or self-care (01) ==
PROVIDERS: Emergency Provider Emergency Medicine; PCP Family Medicine; Visit Provider Emergency Medicine
DX: F39 Unspecified mood [affective] disorder (principal); J44.9 Chronic obstructive pulmonary disease, unspecified; F41.9 Anxiety disorder, unspecified; F32.A Depression, unspecified; Z79.899 Other long term (current) drug therapy; Z90.710 Acquired absence of both cervix and uterus; F17.210 Nicotine dependence, cigarettes, uncomplicated
CPT/HCPCS: 99282

== ENCOUNTER 2022-12-15 08:00 | Outpatient (RCR) | payer MEDICARE, MEDICAID, SELFPAY ==
--- NOTE | 2022-12-15 10:08 | BH.SGPN.GN ---
Behaviors/Verbalizations/Mental Status: []Pt alert and oriented, neatly dressed and groomed. Eye contact good. Motor activity appropriate. Speech within normal limits. Affect congruent-tearful, mood irritable and anxious. Thoughts linear, logical, no signs of hallucinations or delusions. Client Response/Progress/Benefit: [] Pt was an engaged participant in group discussions. Attentive during psychoeducation on 4 types of conflict styles (Competing, Collaborating, Avoiding, and Accommodating). Worked with group to define conflict and identify how conflict is helpful. With peers identified barriers to addressing or managing conflict which included: not wanting to hurt others, lack of communication skills, and cognitive distortions. Pt was highly anxious and shared that coming to IOP tx today was extremely difficult so pt declined to share. Benefited from group due to increase insight and awareness of benefits to conflict, conflict styles, and obstacles to managing conflict. Will continue in IOP tx to prevent decompensation, maintain safety, and increase healthy coping skills.
--- NOTE | 2022-12-15 10:56 | BH.COMM_ITS ---
Communication Note Communication with Client Communication Note: Met with pt to complete initial paperwork and administer the CSSR-S screening and risk assessment. Pt is low risk per the CSSR-S screening and risk assessment. Pt denies any suicidal ideations within the last month. Pt stated she has had thoughts of within the past month. Pt has no history of suicide attempts per her report. Pt is future oriented. No guns at home. No stockpiles of medications. Pt receptive to discussion on reducing access to lethal means. Discussed case with Dr. Hong and pt will be admitted to [facility] tx with a diagnosis of MDD, recurrent, severe, without psychosis F 33.2
--- NOTE | 2022-12-15 11:05 | BH.SGPN.GN ---
Behaviors/Verbalizations/Mental Status: []Pt alert and oriented, neatly dressed and groomed. Eye contact good. Motor activity appropriate. Speech within normal limits. Affect congruent-tearful, mood irritable and anxious. Thoughts linear, logical, no signs of hallucinations or delusions. Client Response/Progress/Benefit: [] Pt was a passive participant in group discussions and activity. Attentive during psychoeducation. Along with peers was able to reflect on what conflict resolution skills can be useful outside of IOP. Pt shared ?none of these skills will work because my partner is a narcissist.? Group normalized the externals outside of pts control when dealing with conflict and reminded pt that not all people will treat her like this in the future. Benefited from practicing and learning conflict resolution skills. Will continue in IOP tx to prevent decompensation, improve daily functioning, and reduce isolation. Narrative Note: []
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
[2022-12-16 10:38] VITALS: BP 137/95; PULSE 106
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
--- NOTE | 2022-12-16 12:39 | BH.DR.ITP ---
Initial Treatment Plan Patient Information Visit Information: ADMISSION DATE: EXPECTED LOS: 4-6 weeks Problems/Symptoms Problem #1:: Anxiety Symptom:: Worry, rumination, panic attacks, agoraphobia, nightmares, flashbacks, avoidance Problem #2:: Depression Symptom:: Sadness, hopelessness, guilt, anhedonia, biological disruption of sleep, low energy, decreased concentration, passive thoughts of
--- NOTE | 2023-01-14 09:05 | BH.SGPN.GN ---
4/5 for anxiety and 3/5 for irritability. This was pt's first day in IOP and she is visibly anxious and uncomfortable with group process. Per intake she has daily panic attacks and significant anxiety which have resulted in severe isolation and struggles with leave her house. No progress noted. Limited benefit noted. Will continue in IOP to improve functioning, decrease isolation, increase healthing coping, and to prevent decompensation. Narrative Note: []
== END 2022-12-19 23:59 ==
LOC: BHIOP 08:00
PROVIDERS: PCP Family Medicine; Referring Provider Psychiatry & Neurology Psychiatry; Visit Provider Psychiatry & Neurology Psychiatry
DX: F41.0 Panic disorder [episodic paroxysmal anxiety] (principal); F43.10 Post-traumatic stress disorder, unspecified; F33.2 Major depressive disorder, recurrent severe without psychotic features
CPT/HCPCS: S9480; 90853

== ENCOUNTER 2022-12-21 09:20 | Outpatient (RCR) | payer MEDICARE, MEDICAID, SELFPAY ==
[2022-12-20 00:49] VITALS: BP 137/95; PULSE 106
--- NOTE | 2022-12-21 12:00 | BH.COMM ---
Communication Note Communication with Client Communication Note: cancelled due to illness
--- NOTE | 2022-12-25 08:39 | BH.COMM ---
Communication Note Communication with Client Communication Note: cancelled due to illness. Pt did not attend IOP this week. Reports significant illness. Her mental health symptoms (severe anxiety, isolation, etc) continue to impact functioning and may be related to call offs this week. If pt is unable to attend next scheduled session therapist will reach out and discuss compliance.
--- NOTE | 2022-12-29 09:54 | BH.COMM ---
Communication Note Communication with Client Communication Note: Pt continues to be ill. She presented to the ER recently and reports a type of pneumonia. She has a PCP appointment today and will reach out afterwards. This physical illness has exacerbated her isolation and mental health struggles.
--- NOTE | 2022-12-30 10:17 | BH.COMM ---
Communication Note Communication with Client Communication Note: Pt called in after PCP appointment. Recommendation is that she rest with plan to return to IOP next week. Her mental health struggles, significant isolation, and panic continue to impact functioning and are possibly worsening due to physical symptoms. Plan to have her remain in IOP level of care as her mental health continues to be decompensating. If she is unable to attend next week we would discharge her until she is medically stable to return.
--- NOTE | 2023-01-05 09:04 | BH.SGPN.GN ---
Behaviors/Verbalizations/Mental Status: [] Pt alert and oriented, casually dressed and groomed. Eye contact fair to good. Motor activity appropriate. Speech within normal limits. Affect congruent, mood depressed and agitated. Thoughts linear, logical, no signs of hallucinations or delusions. Reviewed pt?s symptom tracker, no SI, plan, or intent indicated. Client Response/Progress/Benefit: [] Pt responded well to session, open to processing with group and engaged. Pt reports feeling sad and stressed this morning. Shared her current mental health wins include getting to group this morning despite still recovering from pneumonia and feeling more fatigued than usual. Pt shared she additionally did well not to let frustrations with her boyfriend lead to an argument this morning. Pt indicated that her relationship is her largest stressor impacting her mental health and functioning at this time. Shared knowing the relationship is unhealthy but struggling to take the steps to end it as she is financially dependent on him. Pt responded well and appeared to benefit from group support and encouragement. Pt will continue IOP tx to promote mood stability, encourage improved self-care, as well as prevent decompensation. Narrative Note: []
--- NOTE | 2023-01-05 10:05 | BH.SGPN.GN ---
Behaviors/Verbalizations/Mental Status: []Pt alert and oriented, casually dressed and groomed. Eye contact good. Motor activity appropriate. Speech within normal limits. Affect constricted, mood anxious and depressed. Thoughts linear, logical, no signs of hallucinations or delusions. Client Response/Progress/Benefit: [] Pt receptive to session AEB contributing to small group discussion, as well as listening attentively to others, and taking notes. Worked with group to brainstorm the positive and negative aspects of stress on physical and mental health. Group did well to identify the benefits of stress as well as the impact of distress on performance, relationships, and mental health. Pt identified their personal top stressors as: finances, being ?stuck in the house,? her toxic relationship, and lack of support. Pt reports when their jar is ?overflowing? pt sleeps to avoid and overthinks ?obsessively.? Pt seemed to benefit from increased awareness of current stressors and impact stress has on mental health. Recommended to continue IOP tx to prevent decompensation, gain healthy coping skills and support, and reduce negative thinking patterns. Narrative Note: []
--- NOTE | 2023-01-05 15:11 | BH.MTP_ITS ---
Master Treatment Plan Patient Information Program Physician:: Stephania Marrufo Primary Therapist:: Rene Marie Psychiatric Diagnoses Psychiatric Diagnoses:: 1. Panic attacks with agoraphobia 2. PTSD 3. Major depressive disorder, recurrent, severe without psychosis 4. Strong cluster B traits Diagnosis Code(s):: F40.01, f33.2 Estimated LOS Estimated LOS (in weeks):: 8 Problem/Goal #1 Problem/Goal #1 Stated Goal:: Client will reduce the frequency, intensity and duration of panic attacks while increasing ability to function on daily basis AEB reduced scores on the anxiety and anger domain. Description of Barriers: Limited coping skills, severe isolative behaviors, no transportation, unhealthy relationship, limited support, limited benefit from medications/counseling in recent past, hx of treatment non-compliance. Functional Impact: Pt reports that she never leaves the house. No purpose in life. Unable to maintain and jobs of positive relationships. Dependent on unhealthy partner, estranged from family. Goal Relevant Strengths/Supports: Insight, motivated at times Objectives Objective #1: Stated Objective: Implement calming and coping strategies to reduce overall anxiety and to cope with the experience of panic. Interventions: Through individual and group counseling will teach the calming/coping strategies (staying focused on behavioral goals, muscular relaxation, evenly paced diaphragmatic breathing, positive self-talk) to manage symptom attacks. Will also provide education on panic attacks being ?false alarms? of danger, not medically dangerous, not a sign of weakness or craziness, common but often lead to unnecessary fear and avoidance: correct myths and misconceptions about panic symptoms (going crazy, dying, losing control) that contribute to fear and avoidance. Discharge Criteria: Will be able to identify and implement 3-4 coping/calm ing strategies consistently. Target Date: 02/10/23 Review Date: 01/13/23 Objective #2: Stated Objective: Client will identify 2-3 cognitive distortions that lead to rumination and learn 2-3 ways to manage these thoughts to better manage anxiety. Interventions: Through individual and group counseling will introduce CBT concepts (cog, distortions, through log, etc.. ) and assist client in identifying, challenging, and replacing dysfunctional thoughts with positive, more realistic thoughts. Discharge Criteria: Able to report 2-3 commonly used cognitive distortions and 2-3 ways to reframe and challnege these distortions. Will keep a thought log. Target Date: 02/10/23 Review Date: 01/13/23 Problem/Goal #2 Problem/Goal #2 Stated Goal:: Client will increase mood stability and reduce depression, isolation, anger outburst, and guilt AEB reduced scores on the DSM-5 outcomes domains of depression and anger. Description of Barriers: Limited coping skills, severe isolative behaviors, no transportation, unhealthy relationship, limited support, limited benefit from medications/counseling in recent past, hx of treatment non-compliance. Functional Impact: Pt reports that she never leaves the house. No purpose in life. Unable to maintain and jobs of positive relationships. Dependent on unhealthy partner, estranged from family. Anger outbursts. Goal Relevant Strengths/Supports: insight, motivated at times Objectives Objective #1: Stated Objective: Client will create a behavior activation plan which will include a daily schedule with activities to increase mood and activity. Interventions: Through individual and group counseling will provide education on behavior activation and opposite action as well as help client identify activities, in line with increasing connection with others, decreasing isolation, and increasing purpose/social interaction. Discharge Criteria: Pt will have developed daily behavior activation goals and increased daily purpose. Target Date: 02/10/23 Review Date: 01/13/23
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
--- NOTE | 2023-01-05 15:11 | BH.MDN ---
Multi-Disciplinary Note Note 30-min Individual: Time Started:: 11:30 Date: 01/05/23 Purpose of session/treatment goals addressed:: Used the session to review progress and current symptoms. Assessed functioning since last visit (pt has been ill with pneumonia for 2 weeks) and to begin to develop treatment plan goals. Eye Contact:: Good Motor Activity:: Appropriate Appearance:: Casual Speech:: Appropriate Mood:: Anxious, Irritable and Depressed Affect:: Congruent Thoughts:: Linear, Logical and No evidence of hallucinations/delusions noted Staff Interventions:: CBT techniques (began to introduce cognitive distortions), rapport building, treatment planning and goal setting Client Response:: Pt began the session apologizing for not being able to attend IOP for past 2 weeks. According to pt she has had pneumonia which has exacerbated her COPD making talking, walking, and breathing difficult. In regards to her mental health its been bad. States that being sick along with sitting at home led to increased rumination, anger outbursts, irritability, panic, and depression. Tearful at times during the session. I just sit at home with my thoughts all day and its miserable. Ruminating extensively on several areas of her life however primarily her current relationship. According to pt her BF is open about the fact that he is having an affair with a woman. Pt feels disrespected however rationalizes his behaviors stating he comes home to me every night. Insight that current relationship is not meeting her needs and is unhealthy. BF completed an initial counseling session last week with her present stating he is trying to work on things. Incongruent messaging however as BF often dares her to pack up his things and kick him out. Pt reports that due to this unhealthy relationship she has become estranged from her daughter and grandkids. They see him as poison to me. When asked about goals for IOP pt states that she is hoping to find purpose in her daily life. She reports continuous negative automatic thoughts and cognitive distortions which are constant leading to severe rumination, isolation, and depression. Attempts to distract are limited due to extreme anxiety when she leave the house. Shared several examples of catastrophizing and jumping to conclusions. Risks/Concerns:: no risks or concerns noted. Progress Toward Goals/Plan:: Limited progress in the past 2 weeks due to severe isolation and ruminations. Increased anger, anxiety, and depression. Hopeless and feels trapped. No purpose in her life. Primary support is BF, however very conflict and unhealthy communication. Did not have a panic attacks today in group. It was also the first time that she actually talked, shared her struggles, and engaged in group. She noted that she felt better after venting and I didn't feel judged. Also reports that group was a positive distraction and social outlet today. Overall her IOP experience was positive today and notes that If I would have stayed home I know things would be way worse. Plan is to continue in IOP as her symptoms have regressed due to illness.
--- NOTE | 2023-01-07 09:00 | BH.SGPN.GN ---
Behaviors/Verbalizations/Mental Status: [] Eye contact is good. Motor activity is appropriate. Appearance is casual. Speech is Appropriate. Mood is anxious. Affect is congruent. Thoughts are linear and logical. No evidence of psychosis. Reviewed daily check in sheet and no reports of suicidal ideations or intent. Client Response/Progress/Benefit: [] Pt was an active participant in group discussion. Attentive. Daily symptom tracker notes 03/26 for agitation. Mental health win was I woke up before 9am for the past 3 days. Emotion for today is positive. Insight that engaging in IOP has been helpful for her overall mood. Forcing herself to get to IOP has increase social engagement, helped with distraction, and she is beginning to learn/implement new skills. She talked about catastrophizing and mind reading and how this has impacted her anxiety, isolation, anger, and communication. She is working hard on not feeding into things. I know coming here is going to help in a lot of ways. She discussed with the group the idea of starting a journal and asked for feedback. Progress noted per pt report as she is beginning to identify benefits of attending IOP. Benefited from group support, encouragment, and feedback. Will continue in IOP to prevent decompensation, increase helathy coping, and improve functioning. Narrative Note: []
--- NOTE | 2023-01-07 10:20 | BH.SGPN.GN ---
Behaviors/Verbalizations/Mental Status: []Pt alert and oriented, casually dressed and groomed. Eye contact good. Motor activity appropriate. Speech within normal limits. Affect congruent, mood anxious and depressed. Thoughts linear, logical, no signs of hallucinations or delusions. Client Response/Progress/Benefit: []Pt receptive of session, actively engaged throughout AEB taking notes, providing input, and listening to discussion. Appeared to connect with group topic of cognitive distortions and the impact of thought patterns on mental health, coping behaviors, and relationships. At times struggles with focusing on group topic due to a phone call pt received during session. Pt reports connecting with distortions of catastrophizing and predicting the future. Pt stated she has difficult time with assuming the worst case scenario, especially when it involves her daughter. Pt appeared to benefit from gaining insight on distorted thinking patterns and how this impacts overall mental health. Will continue IOP tx to improve mood stability, increase healthy coping, and prevent decompensation. Narrative Note: []
--- NOTE | 2023-01-07 13:28 | BH.MDN ---
Multi-Disciplinary Note Note 30-min Individual: Time Started:: 11:20 Date: 01/07/23 Purpose of session/treatment goals addressed:: Was informed by group therapist that pt was tearful and hard time engaging in group. Group therapist recommended that pt be seen in individual session. Eye Contact:: Good Motor Activity:: Appropriate Appearance:: Disheveled Speech:: Appropriate Mood:: Anxious, Irritable and Depressed Affect:: Congruent Thoughts:: Linear, Logical and No evidence of hallucinations/delusions noted Staff Interventions:: CBT techniques (cognitive distortions. ), rapport building and other (processing of recent events, problem-solving, and discussion on effective communication. ) Client Response:: Pt was tearful at times during the session. Insight that she was catastrophizing and in my head during 2nd group. She received a text from her daughter who reported a crisis event and requested that pt leave group to help. Pt reports very conflicted relationship with daughter stating I need to focus on myself. Was also ruminating and jumping to conclusions regarding her BF. These thoughts made it challenging for her to engage in the group and admits to being distracted. Used the session to vent, process the events, and problem solve. She was worried about allowing these events to consume her for the rest of the day. If I was at home I would be a mess right now. Glad this happened in a safe place. Risks/Concerns:: no risks or concerns noted. Progress Toward Goals/Plan:: Progress noted since last visit. Pt reported increase awareness of cognitive distortions. We briefly reviewed distortions worksheet. Shared two recent examples of effective communication with which prevented anger from escalating. Reports support and benefit from IOP. Continues to isolation when not at IOP. Reports no purpose in his life which leads to being dependent on BF, depression, regret, and guilt over past decisions. Benefits from social interaction and currently this is significantly impacted. Its never been this bad. Overwhelming negative thoughts and cognitive distortions which often lead to anger, anxiety, and isolation. Will continue in IOP to improve functioning, stabilize mood, and increase healthy coping.
--- NOTE | 2023-01-11 16:10 | BH.COMM ---
Communication Note Communication with Client Communication Note: called off due to illness
--- NOTE | 2023-01-12 16:11 | BH.COMM ---
Communication Note Communication with Client Communication Note: Called off due to illness
--- NOTE | 2023-01-13 14:57 | BH.MTP_ITS ---
Treatment Plan Review Demographics Date of Admission:: 12/14/22 Date of Treatment Plan Review:: 01/13/23 Admitting Diagnoses:: 1. Panic attacks with agoraphobia 2. PTSD 3. Major depressive disorder, recurrent, severe without psychosis 4. Strong cluster B trait Current Diagnoses:: 1. Panic attacks with agoraphobia 2. PTSD 3. Major depressive disorder, recurrent, severe without psychosis 4. Strong cluster B trait Patient Status Patient's Response to Treatment:: Inconsistent attendance. Pt has cancelled numerous IOP sessions due to illness since starting treatment. As of today she has attended 4 IOP sessions and cancelled 10 since her admission on 12/16/22. Pt reported significant pneumonia symptoms which have impacted her functioning (walking, talking, breathing, energy, etc.) Struggled her first 2 days in IOP due to severe anxiety which resulted in no engagement with staff or peers. Illness has led to increased isolation, panic, depression, and ruminations. I sit at home all day ... and I'm in my head. Constantly obsessing over her BF and his commitment and where-abouts. She has 2 phones and will text and call BF repeatedly in-between IOP groups and if no response has difficulty focusing. She will often seek proof that he is at work and not cheating on her. Unhealthy relationship as BF openly visits with another woman once a week. Status of Current Problems and Symptoms: Pt has cancelled past 2 IOP sessions therefore she has not completed her 4 week outcomes measurement. Limited progress noted per staff. Reports support and benefit from IOP however again she has only attended 4 times. Without consistent attendance her prognosis is poor. She is learning skills noting increased insight into cognitive distortions such as catastrophizing however limited strategies to utilize due to poor attendance. Continues to isolation when not at IOP. Reports no purpose in his life which leads to being dependent on BF, depression, regret, and guilt over past decisions. Benefits from social interaction in IOP. Overwhelming negative thoughts and cognitive distortions which often lead to anger, anxiety, and isolation. According to patient her overall mental health has been decompensating for several months its the worst its ever been. Progress Problem #1: Problem Name:: Panic/ Anxiety Status of Goals:: obj 1- No met, limited progress due to poor attendance obj 2- some progress noted. She has identified 2 cognitive distortions (jumping to conclusions, catastrophizing) however has not been able to work with [facility] staff to develop strategies to reframe, challenge, or accept these distortions. Team Recommendations:: Encourage attendance. Problem #2: Problem Name:: Depression Status of Goals:: obj 1- No progress due to inconsistent attendance. Team Recommendations:: Encourage attendance in program.
--- NOTE | 2023-01-13 16:12 | BH.COMM ---
Communication Note Communication with Client Communication Note: Spoke with patient over the phone regarding cancellations this week. She reports fluid in her left lung and persistent coughing. We discussed the program and she wishes to continue. Plan is for her to be in attendance tomorrow.
--- NOTE | 2023-01-18 09:10 | BH.SGPN.GN ---
Behaviors/Verbalizations/Mental Status: [Patient was alert and oriented, appropriately dressed and groomed. Eye contact was good, motor activity normal, speech within normal limits. Affect congruent, mood angry. Thoughts linear, logical, no signs of hallucinations or delusions. Reviewed Patients symptom tracker and the patient reported themselves as moderate/severe in depressed mood, agitation/irritability/anger and moderate in anxiety/panic attacks. Patient does not report symptoms of self-harm urges or thoughts/risk of suicide.] Client Response/Progress/Benefit: [Patient was engaged and open to the discussion. Patient reported her mood to be ?Angry, irritated, and tired?. The patient reported that she has not had any wins and that life ?just sucks?. Patient stated if there was anything that could be a win is that she was in group today. Her stressor she reported to be ?life and being sick?. Patient was respectful with other group members about their mental wins and stressors. Patient benefited from the discussion by listening to feedback to her peer?s stressors and mental health wins. Patient will continue with IOP treatment to help develop healthy skills, promote mood stability, and improve distress tolerance. ] Narrative Note: []
--- NOTE | 2023-01-18 11:15 | BH.SGPN.GN ---
Behaviors/Verbalizations/Mental Status: []Pt alert and oriented, casually dressed and groomed. Eye contact good. Motor activity appropriate. Speech within normal limits. Affect constricted, mood irritable and depressed. Thoughts linear, logical, no signs of hallucinations or delusions. Client Response/Progress/Benefit: []Pt attentive during session, though provided limited input. Pt attentive during psychoeducation on the different boundary styles. Pt reports connecting most with rigid boundary setting style with new people and porous with close relationships. Pt shared this has impacted her ability to feel respected within relationships. Group brainstormed various strategies for improving ability to establish and maintain healthy boundaries. Reported she wants to work on starting small with establishing boundaries and regulating her emotions in doing so. Appeared to benefit from increasing insight to boundary setting styles and the impacts on mental health. Will continue IOP tx to prevent decompensation, improve ability to regulate emotions, and increase healthy coping. Narrative Note: []
--- NOTE | 2023-01-18 13:50 | BH.MDN ---
Multi-Disciplinary Note Note 60-min Individual: Time Started:: 10:10 Date: 01/18/23 Purpose of session/treatment goals addressed:: Pt presented this AM with increased irritability and poor emotion regulation. Met with pt to process mood and develop calming strategies. Eye Contact:: Good Motor Activity:: Restless Appearance:: Casual Speech:: Pressured and Rapid Mood:: Irritable Thoughts:: Linear, Logical and No evidence of hallucinations/delusions noted Staff Interventions:: other (support, problem solving skills, effective communication, boundary setting) Client Response:: Tearful throughout the session. Focused exclusively again on her unhealthy relationship and its impact on her mental health. I just can't do it anymore. According to patient her BF has been having affair for the past 9 months. In the past she believed BF was mostly loyal to her he never spent the night with her. Last week she was made aware that he spent the night with her and she overheard him telling the other woman that he was just roommates with patient. Significant emotional distress and arguments. She is angry at herself for allowing herself to be treated this way. Insight about manipulation, gaslighting, and inappropriate behaviors. Her mental health continues to decompensate as she is constantly arguing, ruminating, and focusing on this situation. Isolating. Cancelled appointment with [employer] [facility] [employer] appointment (this was set up to help her find employment/purpose). Sleeping throughout the day. Was overheard yelling at BF on the phone this AM. Describes her life as exhausting. Challenging for her to utilize skills or process. Risks/Concerns:: No risks or concerns noted. Daily symptom tracker indicates no suicidal ideations or intent. Progress Toward Goals/Plan:: Limited progress noted due to continued isolation, limited support, struggles to utilize skills, poor IOP attendance, and significant psychosocial stressors. Mental health continues to decompensation. Emotion dysregulation noted today AEB by anger outbursts and irritability. Noted several times during session that she wants BF to leave however he refusing telling her You know you need me too much. They continue to sleep in same bed and she continues to answer calls from him. Struggling to set any firm boundaries. She is dismissive of feedback to involve the police and to pack his belongings for him. I ain't packing them and he refuses. Insight that she is caught in a cycle where she gets upset at him for his actions, threatens to leave, and then never follows through. Support, encouragement, and education on boundary-setting, decision-making, and effective communication provided. Time Stopped:: 11:00
--- NOTE | 2023-01-19 09:00 | BH.SGPN.GN ---
Behaviors/Verbalizations/Mental Status: [] Eye contact is good. Motor activity is appropriate. Appearance is casual. Speech is Appropriate. Mood is depressed/irritable. Affect is congruent. Thoughts are linear and logical. No evidence of psychosis. Reviewed daily check in sheet and no reports of suicidal ideations or intent. Client Response/Progress/Benefit: [] Pt participted at times during the group discussion. Attentive. Daily symptom tracker notes 2/5 for depression and irritability. Her mental health win is that she woke up two days in a row to get here. Shared recent medical and mental health struggles. My living arrangements are not good. Emotion for today is tired. Briefly discussed struggles with current BF and how this impacts her motivation, mood, and overall self-esteem. Continues to isolate when not in IOP. Spending majority of her day sleeping or alone at home. She discussed leaving her BF yesterday however is less interested in this today as she was heard talking with him on the phone prior to group. She also discussed some hoarding type behaviors noting that she has a closet full of hygiene products. States that she has so many that she will never be able to use them all however continues to buy. Stems back to bullying as a child. Limited progress noted as her relationship struggles continue to dominate her thoughts and lead to excessive/obsessive ruminations. Continues to isolate and is at times dismissive of staff and peers who attempt to provide support and feedback. Limited benefit from group this AM. Will continue in IOP to prevent decompensation, improve functioning, and to increase healthy coping. Narrative Note: []
--- NOTE | 2023-01-19 10:03 | BH.SGPN.GN ---
Behaviors/Verbalizations/Mental Status: [] Client alert and oriented, casually dressed and groomed. Eye contact poor with client frequently looking at phone. Motor activity appropriate. Speech within normal limits. Affect congruent, mood anxious and depressed. Thoughts linear, logical, no signs of hallucinations or delusions. Client Response/Progress/Benefit: [] Client responded semi engaged to session AEB sharing some thoughts and taking notes.? Client participated in group discussion regarding how it feels to not have social support with stating feeling isolated a lot. Clinician provided psychoeducation on types of support including internal and external support. Client participated in experiential activity illustrating the importance of having multiple social supports and highlighting the roles of supports. Client provided supportive feedback and problem solving throughout group activity. Client participated in group processing of the activity, discussing how she had to reply on supports because she has limitations. Client went on to say she feels guilty with her limitations which prevents her from using supports. Client appeared to benefit from increased knowledge of the benefits of social support and greater self-awareness. Will continue IOP treatment to continue increasing application of healthy coping skills, increase emotional regulations, and prevent decompensation. Narrative Note: []
--- NOTE | 2023-01-19 11:03 | BH.SGPN.GN ---
Behaviors/Verbalizations/Mental Status: [] Client alert and oriented, casually dressed and groomed. Eye contact good. Motor activity appropriate. Speech within normal limits. Affect congruent, mood euthymic. Thoughts linear, logical, no signs of hallucinations or delusions. Client Response/Progress/Benefit: [] Client was an active participant throughout AEB contributing to discussion, providing personal examples, and taking notes. Client processed emotions felt in the activity and how they coped in the moment. Client provided input during discussion on the types of support our supports can provide. Client able to identify current support system and barriers that get in the way of using supports by drawing out their own support net. Client reported after identifying what type of supports they receive; they gained awareness that they could benefit from more social supports. Client identified steps to achieve this by reaching out, interacting in group, and getting around other people. Client shared increasing social supports will help them minimize depression, but also discussed the current obstacles they have that makes it hard to increase this support. Client seemed to benefit from identifying the type of support client needs to work on improving. Client recommended to continue IOP tx to prevent decompensation, reduce isolation, and increase emotional regulation skills. Narrative Note: []
== END 2023-01-19 23:59 ==
LOC: BHIOP 09:20
PROVIDERS: PCP Family Medicine; Referring Provider Psychiatry & Neurology Psychiatry; Visit Provider Psychiatry & Neurology Psychiatry
DX: F41.0 Panic disorder [episodic paroxysmal anxiety] (principal); F43.10 Post-traumatic stress disorder, unspecified; F33.2 Major depressive disorder, recurrent severe without psychotic features
CPT/HCPCS: S9480; 90832; 90837; 90853

== ENCOUNTER 2022-12-27 14:56 | Emergency (ER) | payer MEDICARE, MEDICAID, SELFPAY ==
[2022-12-27 14:57] VITALS: BP 126/87; PULSE 108; RESP 24; TEMP 36; O2SAT 97; BMI 42.7
[2022-12-27 15:02] VITALS: O2SAT 98
--- NOTE | 2022-12-27 15:18 | EX.ED.DYSGE1 ---
HPI History of Present Illness Chief Complaint: Cough Narrative Narrative: Presents with 6 days of cough and congestion and wheezing. She has a history of COPD, she continues to smoke. She has a nonproductive cough. She does not have sore throat. She is denying any fevers. No chest pain or pleuritic component. No lower extremity edema or calf pain. PFSH PFSH Medical History Abdominal pain Anxiety Arthritis Back problem Black tarry stools Chest pain Chronic back pain Constipation COPD (chronic obstructive pulmonary disease) Depression Diarrhea History of crack cocaine use Major depressive disorder, recurrent severe without psychotic features Morbid obesity 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 PTSD (post-traumatic stress disorder) Smoking addiction Home Medications lamotrigine 25 mg tablet (Lamictal) 25 mg PO DAILY 30 days #42 tabs 12/16/22 [Rx Last Taken Unknown] sertraline 25 mg tablet (Zoloft) 25 mg PO DAILY 30 days #30 tabs 12/16/22 [Rx Last Taken Unknown] doxycycline hyclate 100 mg capsule 100 mg PO BID #20 caps 12/27/22 [Rx Last Taken Unknown] prednisone 50 mg tablet 50 mg PO DAILY #4 tabs 12/27/22 [Rx Last Taken Unknown] Allergy/AdvReac Type Severity Reaction Status Date / Time tramadol Allergy Itching Verified 12/27/22 14:57 gabapentin AdvReac Nausea Verified 12/27/22 14:57 metronidazole [From Flagyl] AdvReac Upset Verified 12/27/22 14:57 Stomach Family History Father Hypertension Surgical History History of hysterectomy History of tonsillectomy Hx of fusion of cervical spine Social History Smoking Status: Current every day smoker tobacco type: cigarettes alcohol intake: never substance use type: does not use ROS ROS ED ROS Narrative Review of systems: All systems negative except as indicated General: No fever Eyes: No visual changes ENT: No upper airway congestion Neck: No neck pain Cardiovascular: No chest pain Respiratory: Dyspnea Gastrointestinal: No abdominal pain, nausea vomiting or diarrhea Genitourinary: No dysuria Musculoskeletal: Denies myalgias no difficulty with ambulation Skin: No rash Neurological: No memory loss, confusion or any focal weakness EXAM Physical Exam Narrative Exam Narrative: Physical exam General: Well nourished, Well developed, No Acute Distress Head: Normocephalic, Atraumatic Eyes: Conjunctiva not pale ENT: Slight congestion, very slight TM erythema on the left. Normal posterior oropharynx. Neck: Supple, Nontender, No lymphadenopathy Cardiovascular: Regular rate, Regular rhythm Respiratory: She has bilateral end expiratory wheezing. However she does not appear in any respiratory distress. She is not tachypneic, she is speaking in full sentences. Abdomen: Soft, Nontender, Nondistended Back: Nontender, Normal Inspection. Negative for: CVA tenderness Extremities: Nontender, No edema Skin: Normal color, No rash Neurological: Alert, Normal Strength, Normal Sensation Psychological: Normal affect Const Vital Signs: 12/27/22 14:57 12/27/22 15:02 Temperature 96.8 F L Temperature Source Temporal Pulse Rate 108 H Respiratory Rate 24 H Respiratory Effort Short of Breath Blood Pressure 126/87 H Blood Pressure Mean 100 Pulse Ox 97 Oxygen Delivery Method Room Air Room Air MDM MDM MDM Narrative Medical decision making narrative: Patient has a change in her cough with COPD, she meets criteria for antibiotics, since she already meets criteria for Lasix, I do not believe a chest x-ray is needed. She has unremarkable vitals in the ED and appears well therefore I do not believe blood work is needed. Not worried about PE or cardiac etiology. Since she has wheezing I will give her DuoNebs, I will place her on steroids. She is not a diabetic. Otherwise she does have a nebulizer with albuterol at home which she will be using. I urged smoking cessation. I do not believe she meets admission criteria. Discharge Plan Triage Chief Complaint: Cough Other Complaint: Shortness of Breath ED Provider: Rome Langford Dx/Rx/DC Orders Clinical Impression: Cough, Wheezing, COPD (chronic obstructive pulmonary disease) Instructions: COPD Quit Smoking Prescriptions: New prednisone 50 mg tablet 50 mg PO DAILY Qty: 4 0RF doxycycline hyclate 100 mg capsule 100 mg PO BID Qty: 20 0RF No Action lamotrigine [Lamictal] 25 mg tablet 25 mg PO DAILY 30 Days Qty: 42 0RF Rx Instructions: Take 1 po daily x 14 days, then 2 (50mg) po daily x 14 days. sertraline [Zoloft] 25 mg tablet 25 mg PO DAILY 30 Days Qty: 30 1RF Primary Care Provider: Bird Dietrich Referrals: Bird Dietrich MD [Primary Care Provider] - 3-5 Days Disposition Disposition: Home, Self Care
[2022-12-27 15:24] VITALS: PULSE 96; RESP 20
[2022-12-27] MEDS: predniSONE 20 MG Tablet 60 MG PO (15:24)
[2022-12-27] MEDS: Doxycycline 100 MG CAPSULE PO (15:24)
[2022-12-27] MEDS: Ipratropium/Albuterol Sulfate 3 ML AMPUL.NEB 6 ML INHALATION (15:24)
--- NOTE | 2023-01-12 10:42 | BH.COMM ---
Communication Note Communication with Client Communication Note: Met with pt to complete initial paperwork and administer the CSSR-S screening and risk assessment. Pt is low risk per the CSSR-S screening and risk assessment. Pt denies any suicidal ideations within the last month. Pt stated she has had thoughts of within the past month. Pt has no history of suicide attempts per her report. Pt is future oriented. No guns at home. No stockpiles of medications. Pt receptive to discussion on reducing access to lethal means. Discussed case with Dr. Hong and pt will be admitted to [facility] tx with a diagnosis of MDD, recurrent, severe, without psychosis F 33.2
== END 2022-12-27 15:51 | disposition home or self-care (01) ==
PROVIDERS: Emergency Provider Emergency Medicine; PCP Family Medicine; Visit Provider Emergency Medicine
DX: R05.9 Cough, unspecified (principal); J44.9 Chronic obstructive pulmonary disease, unspecified; F32.A Depression, unspecified; F43.10 Post-traumatic stress disorder, unspecified; Z90.710 Acquired absence of both cervix and uterus; F17.210 Nicotine dependence, cigarettes, uncomplicated; R06.2 Wheezing
CPT/HCPCS: 87428; 94640; 99282

== ENCOUNTER 2023-01-20 06:47 | Outpatient (RCR) | payer MEDICARE, MEDICAID, SELFPAY ==
[2023-01-20 00:51] VITALS: BP 137/95; PULSE 106
--- NOTE | 2023-01-21 10:15 | BH.SGPN.GN ---
Behaviors/Verbalizations/Mental Status: [] Eye contact is good. Motor activity is appropriate. Appearance is casual. Speech is Appropriate. Mood is depressed/irritable. Affect is congruent. Thoughts are linear and logical. No evidence of psychosis. Client Response/Progress/Benefit: [] Pt participated at times during the group discussions. Active participant in group activity on perspective. Attentive during interactive group discussions in which peers worked together to define 'perspective' (i.e. how we look at things; what we focus on) and discuss how it can impact one's mental health. Group was able to to identify what can impact our perspective and gave examples such as; past experiences, emotions, feelings, thoughts, support system, upbringing, and current environment. Benefited from increased awareness and insight on the role of perspective on mental health. Will continue in IOP to prevent decompensation, stabilize mood, improve functioning, and increase healthy coping. Narrative Note: []
--- NOTE | 2023-01-21 11:15 | BH.SGPN.GN ---
Behaviors/Verbalizations/Mental Status: []Pt alert and oriented, neatly dressed and groomed. Eye contact good. Motor activity appropriate. Speech within normal limits. Affect congruent, mood depressed, agitated. Thoughts linear, logical, no signs of hallucinations or delusions. Client Response/Progress/Benefit: []Pt was visibly agitated due to external stressors; however, did well to remain attentive and contributed to small group discussion. Pt completed strengths exploration worksheet, identifying spirituality, common sense, and persistence as personal strengths. Pt able to acknowledge how these strengths are helping pt and can continue to help pt in mental health journey. Pt worked with group to identify strategies that can help increase utilization of personal strengths and how to challenge one?s perspective in general. Pt identified wanting to work on thought challenging to help challenge perspective. Benefited from identifying personal strengths and strategies for enhancing use of identified strengths to challenge perspective. Pt to continue IOP tx to promote mood stability, improve daily functioning, and increase self-care. ? Narrative Note: []
--- NOTE | 2023-01-21 13:51 | BH.MDN_ITS ---
Multi-Disciplinary Note Note 60-min Individual: Time Started:: 09:00 Date: 01/21/23 Purpose of session/treatment goals addressed:: Utilized session to review progress and current symptoms. Addressed treatment goals 1 and 2. Eye Contact:: Good Motor Activity:: Appropriate Appearance:: Casual Speech:: Appropriate Mood:: Irritable and Depressed Affect:: Congruent Thoughts:: Linear, Logical and No evidence of hallucinations/delusions noted Staff Interventions:: thought challenging and CBT techniques Client Response:: Pt remains in current relationship. He ain't left yet. Continues to be conflict however at this point she is not interested in leaving the relationship. Insight again into toxic cycle that she continues to be involved in with relationship. Elaborated more on unhealthy communication. According to patient he will call every hour and talk with her. Unclear if this is something he wants or if this is something that she wants. When asked if she believed it was healthy for those in a relationships to call each other every h our she states I don't know is it?. When asked if these hourly conversations are helpful or not she reports they often lead to arguments, however if they don't speak (for example if he is busy at work or she falls asleep) this also causes conflict. She is constantly being triggered every hour which makes it difficult to stop negative obsessive thoughts and ruminations. It is also difficult to complete tasks at home, sleep, distract herself, and find purpose throughout the day. Analogy discussed was pulling scab off wound every hour. She was agreeable to set boundary of only talking once in the AM and once in the afternoon. We discussed utilizing behavior activation during her new found free time. Pt also discussed common negative automatic thoughts which primarily revolve around her not being lovable, being worthless, and not being enough for him (which is why he cheats). Essentially her self-esteem is based on his love. We worked on Risks/Concerns:: no risks of concerns noted. Symptom tracker notes no suicidal ideations today. Progress Toward Goals/Plan:: Progress noted since beginning of the week. Less irritable and more hopeful. Continues to be angry and upset with current relationship and housing situation however reports practicing radical acceptance which she has worked on with outside therapist. Shared automatic negative thoughts and ruminations and was open to writing down these thought in journal. Open to challenging and reframing these in session. Also agreeable to writing down affirmation and challenges to have with her when overwhelmed. Agreeable with plan to decrease calls to BF and increase behavior activation. Time Stopped:: 09:52
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
--- NOTE | 2023-01-27 15:38 | BH.COMM ---
Communication Note Communication with Client Communication Note: Pt cancelled IOP today due to illness. She was again scheduled with program psychiatrist today.
== END 2023-01-27 15:39 | disposition home or self-care (01) ==
LOC: BHIOP 06:47
PROVIDERS: PCP Family Medicine; Referring Provider Psychiatry & Neurology Psychiatry; Visit Provider Psychiatry & Neurology Psychiatry
DX: F40.01 Agoraphobia with panic disorder (principal); F43.10 Post-traumatic stress disorder, unspecified; F33.2 Major depressive disorder, recurrent severe without psychotic features
CPT/HCPCS: S9480; 90837; 90853

== ENCOUNTER 2023-03-15 11:15 | Emergency (ER) | payer MEDICARE, MEDICAID, SELFPAY ==
[2023-03-15 11:15] VITALS: BP 112/91; PULSE 113; RESP 16; TEMP 36.1; O2SAT 99; BMI 42.8
--- NOTE | 2023-03-15 11:38 | RAD_ITS ---
STUDY: X-RAY CHEST REASON FOR EXAM: Female, 52 years old. Right-sided chest pain, cough and shortness of trish TECHNIQUE: PA and lateral views of the chest. COMPARISON: 06/16/2021 FINDINGS: EKG leads overlie the chest The lungs are clear and expanded. There is no demonstrated pleural abnormality. Normal size heart. Normal mediastinum and merced. Normal visualized pulmonary arteries. Normal visualized aortic arch and descending thoracic aorta. Normal visualized thoracic spine. Normal visualized ribs, clavicles, and shoulders. There is no demonstrated abnormality of the visualized soft tissue structures of the upper abdomen. RAD/Chest PA and Lateral IMPRESSION: No acute pulmonary process Electronically Signed: Judson Aguilar MD at 12:12 EST ,
--- NOTE | 2023-03-15 12:10 | EX.ED.VIS.UR ---
HPI HPI - URI History of Present Illness Chief Complaint: Cold Sx Detail of Chief Complaint: Shortness of breath with upper respiratory tract infectious symptoms. Informant: patient Onset/Context/Timing Onset: Yesterday Context: Sudden Onset Timing: Continuous and Waxes and wanes Quality: Upper respiratory tract symptoms Location: Respiratory Current Severity: Mild Maximum Severity: Moderate Worsened by: Not Worsened By Swallowing, Eating Solids or Drinking Liquids Relieved by: Not Relieved By Tylenol or NSAIDs Associated Symptoms Associated Symptoms: Positive for Nasal Congestion, Headache, Sinus Pressure, Myalgias, Shortness of Breath and Nonproductive cough; Negative for Nausea, Vomiting, Diarrhea, Chest Pain, Hemoptysis or Productive Cough Narrative Narrative: Patient is a 52-year-old woman who is a smoker and has diagnosis COPD who presents with upper respiratory tract infectious symptoms that started last evening. Boyfriend symptoms started 12 hours prior. She denies fever, chills night sweats. She does complain of facial and head pain. She does endorse rhinorrhea, congestion, postnasal drainage sore throat. She does endorse cough. Cough is nonproductive. She denies history of PE or VTE. She has no risk factors. She denies leg pain, swelling discoloration. Patient denies abdominal pain, nausea, vomiting or diarrhea. She denies black or maroon-colored stool. Patient lips does endorse headache without photophobia, neck pain or neck stiffness. She denies rash. Prior similar symptoms: Yes Recent Illness/Hospitalization: No ROS ROS ED Constitutional Constitutional ED: Denies chills, fever(s), subjective or sweats Eyes Eyes: Denies blurry vision, change in vision or diplopia ENT ENT ED: Reports rhinorrhea and sore throat; Denies ear pain Cardiovascular Cardiovascular: Reports chest pain; Denies orthopnea, palpitations, paroxysmal nocturnal dyspnea or racing heartbeat Respiratory/Chest Respiratory/Chest: Reports cough, dyspnea and dyspnea on exertion; Denies orthopnea, paroxysmal nocturnal dyspnea or sputum Gastrointestinal Gastrointestinal: Denies abdominal pain, constipation, diarrhea, melena, nausea or vomiting Genitourinary Genitourinary ED: Denies dysuria, hematuria or urinary frequency Musculoskeletal Musculoskeletal: Reports arthralgias and myalgias; Denies back pain or neck pain Integumentary Denies rash Neurologic Neurologic: Reports headache(s); Denies paresthesias or weakness Endocrine Endocrinology: Denies cold intolerance or heat intolerance Hematologic/Lymphatic Hematologic/Lymphatic: Denies easy bleeding or easy bruising PFSH PFSH Medical History Abdominal pain Anxiety Arthritis Back problem Black tarry stools Chest pain Chronic back pain Constipation COPD (chronic obstructive pulmonary disease) Depression Diarrhea History of crack cocaine use Major depressive disorder, recurrent severe without psychotic features Morbid obesity 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 PTSD (post-traumatic stress disorder) Smoking addiction Home Medications lamotrigine 25 mg tablet (Lamictal) 25 mg PO DAILY 30 days #42 tabs 12/16/22 [Rx Last Taken Unknown] sertraline 25 mg tablet (Zoloft) 25 mg PO DAILY 30 days #30 tabs 12/16/22 [Rx Last Taken Unknown] doxycycline hyclate 100 mg capsule 100 mg PO BID #20 caps 12/27/22 [Rx Last Taken Unknown] prednisone 50 mg tablet 50 mg PO DAILY #4 tabs 12/27/22 [Rx Last Taken Unknown] Allergy/AdvReac Type Severity Reaction Status Date / Time tramadol Allergy Itching Verified 12/27/22 14:57 gabapentin AdvReac Nausea Verified 12/27/22 14:57 metronidazole [From Flagyl] AdvReac Upset Verified 12/27/22 14:57 Stomach Family History Father Hypertension Surgical History History of hysterectomy History of tonsillectomy Hx of fusion of cervical spine Social History (Updated 03/15/23 @ 12:[address] Quentin Simms MD) household members: significant other Smoking Status: Current every day smoker tobacco type: cigarettes alcohol intake: never substance use type: does not use EXAM Physical Exam Const Vital Signs: 03/15/23 11:15 Temperature 96.9 F L Temperature Source Temporal Pulse Rate 113 H Respiratory Rate 16 Blood Pressure 112/91 H Blood Pressure Mean 98 Pulse Ox 99 Oxygen Delivery Method Room Air Positive well nourished, well developed and obese General Appearance ED: well developed and NAD; Negative for cyanotic, diaphoretic or pallor Nutritional Appearance: obese HEENT Reports moist mucous membranes normocephalic and atraumatic; Negative for scalp tenderness Face and Sinus: Negative for sinus tenderness Throat: posterior oropharynx normal Eyes PERRL and EOMs intact bilaterally General Eye ED: Negative for pale conjunctiva or scleral icterus Neck no lymphadenopathy, supple, no meningeal signs and no JVD Resp normal respiratory effort and clear to auscultation bilaterally Cardio S1 normal heart sound, S2 normal heart sound and no murmurs Rate: regular rate Rhythm: regular rhythm GI non-tender, non-distended and no masses Auscultation: normoactive bowel sounds Palpation: soft Back/Spine no CVA tenderness Extremity Extremity Narrative: There is no asymmetry, swelling, discoloration, leg vein distention, palpable cords or tenderness along the distribution of the deep venous system. Neuro oriented x3, CN's II-XII intact bilaterally and no sensory deficits noted Sensorium / Orientation: alert Motor Exam: strength 5/5 throughout Psych mental status grossly normal Skin General Skin Exam: Negative for jaundice or pallor Lesions: no lesions Rashes: no rashes MDM MDM MDM Narrative Medical decision making narrative: With history of COPD and the fact that she initially was tachycardic obtain chest x-ray to assess for pneumonia/infiltrate. Will also obtain rapid antigen for COVID and influenza since she is complain of myalgias arthralgias. Since she is presently not wheezing will not treat with sympathomimetics or prednisone. Lab Data Attestation: I reviewed the patient's lab results. Lab results narrative: Rapid antigen for influenza and COVID were both negative. Radiography Chest X-Ray - ED: 2 View and Read by ED Physician (Chest x-ray dependent reviewed interpreted by me as negative. Cardiac silhouette size normal. Lung parenchyma minimal chronic changes. There is no infiltrate or effusion. Perihilar region normal. Osseous structures unremarkable. This was interpreted by me at 03/23/2008.) Diagnostic Testing: Clinical Impression(s) from Imaging Studies Chest X-Ray 03/15/23 11:38 IMPRESSION: No acute pulmonary process Electronically Signed: Judson Aguilar MD at 12:12 EST , Discharge Plan Triage Chief Complaint: Cold Sx ED Provider: Quentin Simms Dx/Rx/DC Orders Clinical Impression: Upper respiratory infection with cough and congestion, PTSD (post-traumatic stress disorder), COPD (chronic obstructive pulmonary disease), Acute dyspnea, Tobacco use Instructions: ED URI, Viral, No Abx (Adult) Prescriptions: No Action lamotrigine [Lamictal] 25 mg tablet 25 mg PO DAILY 30 Days Qty: 42 0RF Rx Instructions: Take 1 po daily x 14 days, then 2 (50mg) po daily x 14 days. sertraline [Zoloft] 25 mg tablet 25 mg PO DAILY 30 Days Qty: 30 1RF prednisone 50 mg tablet 50 mg PO DAILY Qty: 4 0RF doxycycline hyclate 100 mg capsule 100 mg PO BID Qty: 20 0RF Primary Care Provider: Bird Dietrich Referrals: Bird Dietrich MD [Primary Care Provider] - 1 Week if not improving Disposition Disposition: Home, Self Care
== END 2023-03-15 12:44 | disposition home or self-care (01) ==
PROVIDERS: Emergency Provider Emergency Medicine; PCP Family Medicine; Visit Provider Emergency Medicine
DX: J06.9 Acute upper respiratory infection, unspecified (principal); J44.0 Chronic obstructive pulmonary disease with (acute) lower respiratory infection; M79.10 Myalgia, unspecified site; F43.10 Post-traumatic stress disorder, unspecified; R05.9 Cough, unspecified; R06.00 Dyspnea, unspecified; E66.9 Obesity, unspecified; F17.210 Nicotine dependence, cigarettes, uncomplicated
CPT/HCPCS: 71046; 87428; 99282

== ENCOUNTER 2023-04-12 08:00 | Outpatient (RCR) | payer MEDICARE, MEDICAID, SELFPAY ==
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
--- NOTE | 2023-04-12 09:00 | BH.MDN_ITS ---
Multi-Disciplinary Note Note 60-min Individual: Time Started:: 08:45 Date: 04/12/23 Purpose of session/treatment goals addressed:: Reviewed history, symptoms, and current functioning. Began to develop tx plan for IOP level of care. Eye Contact:: Good Motor Activity:: Appropriate Appearance:: Neat Speech:: Appropriate Mood:: Irritable and Depressed Affect:: Congruent Thoughts:: Linear, Logical and No evidence of hallucinations/delusions noted Staff Interventions:: rapport building, treatment planning and completed risk assessment / safety planning (completed [place] Suicide Screening) Client Response:: Pt reports that she has been decompensating since the holidays . Discharged from [facility] unsuccessfully on 01/27/23 due to insurance issues, acute medical symptoms, and inconsistent attendance which resulted in mental health decompensation. Since discharge she stopped taking her medications and was unable to follow up with PCP or outpatient therapist due to insurance co-pay. Limited use of skills. Significant isolation and avoidant behaviors stating that I rarely leave the house due to panic, anxiety, and fear. Spending majority of the days, sleeping, cleaning, and watching TV. Limited support and numerous psychosocial stressors (mainly unhealthy relationship) also add to exacerbation. Endorses erratic moods, impulsivity, anger outbursts, ruminating thoughts, panic attacks. Poor sleep, unhealthy eating/nutrition (12 cans of pop daily), no pleasure in activities, feelings of worthlessness, and passive thoughts of . Tearful at times. during the session. Due to her increased irritability, Risks/Concerns:: No risks or concerns noted. Completed [place] Suicide Screening. Denies suicidal ideations, plan, or intent. No hx of attempts. Passive thoughts of and survival ambivalence. Reports having visions of hanging herself however states It's more like a way to get back at him (BF) . Progress Toward Goals/Plan:: No progress noted as this was pt's first day in [facility]. Plan is to admit to [facility] to prevent decompensation, increase healthy coping, decrease isolation, and improve functioning. Time Stopped:: 09:45
--- NOTE | 2023-04-12 10:15 | BH.SGPN.GN ---
Behaviors/Verbalizations/Mental Status: []Eye contact is fair. Motor activity is appropriate. Appearance is casual. Speech is Appropriate. Mood is depressed and agitated. Affect is congruent. Thoughts are linear and logical. No evidence of psychosis Client Response/Progress/Benefit: [] Pt was an active participant in group discussions AEB listening attentively to others and providing feedback at times. Participated in and was engaged during experiential activity. Able to relate activity to group topic of FOF. Engaged during interactive discussion on what failure means to the group in which peers identified and defined failure. Group was able to identify impact of fear of failure on mental health. Attentive during interactive discussion on the role that FOF plays in mental wellness, depression, anxiety, and growth. Pt reported when she fails she tells herself that she is not good enough. Benefited from increased awareness of how the role that FOF plays in mental health and decision-making. Will continue in IOP to prevent decompensation, gain healthy coping skills, and improve daily functioning. Narrative Note: []
--- NOTE | 2023-04-12 11:15 | BH.SGPN.GN ---
Behaviors/Verbalizations/Mental Status: []Pt alert and oriented, casually dressed and groomed. Eye contact good. Motor activity appropriate. Speech within normal limits. Affect congruent, mood depressed. Thoughts linear, logical, no signs of hallucinations or delusions. Client Response/Progress/Benefit: [] Pt responded well to session, engaged in the experiential activity and attentive throughout group processing. Pt reported fear of failure has kept Pt from jobs, setting boundaries, and experiencing new self-growth. Pt completed fear of failure worksheet and was able to identify thoughts and behaviors that reinforce personal fear of failure including all or nothing thinking, self-sabotage, and a negative mindset. Pt participated in group discussion regarding strategies to overcome fear of failure. Identified wanting to work on practicing positive self-talk and establishing healthier boundaries. Appeared to benefit from increased knowledge of strategies to combat fear of failure and gaining self-awareness. Pt will continue IOP tx to improve mood stability, reduce maladaptive coping, and prevent decompensation. Narrative Note: []
--- NOTE | 2023-04-12 12:17 | BH.MTP ---
[facility] Patient Information Program Physician:: Dr. Stephania Sevilla Primary Therapist:: ANITA Alvarado Psychiatric Diagnoses Psychiatric Diagnoses:: 1. 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 PTSD 3. Major depressive disorder, recurrent, severe without psychosis 4. Strong cluster B traits 5. Primary support, work and health issues Diagnosis Code(s):: F40.01 Estimated LOS Estimated LOS (in weeks):: 8 Problem/Goal #1 Problem/Goal #1 Stated Goal:: Client will reduce the frequency, intensity and duration of panic attacks while increasing ability to function on daily basis AEB reduced scores on the anxiety and anger domain. Description of Barriers: Limited coping skills, severe isolative behaviors, no transportation, unhealthy relationship, limited support, limited benefit from medications/counseling in recent past, hx of treatment non-compliance, significant trauma hx, difficulty trusting others. Functional Impact: Pt is a 52 y/o female with dx of Agoraphobia with panic disorder, PTSD, and MDD. No history of psychiatric admissions. Referred to [facility] by her outpatient therapist due to worsening depression, anxiety, and significant isolative/avoidant behaviors. I rarely leave my house . Pt was previously admitted to [facility] in November 2022 however did not successfully complete the program. Decompensation since 02/2023 which resulted in inconsistent use of medications, poor follow-up with mental health treatment, and psychosocial stressors. Exacerbation of mental health and erratic mood led to arrest for theft, which has caused guilt. Endorses poor sleep, poor appetite, low energy, low motivation, no pleasure in activities, hopelessness, worthlessness, irritability, anger outbursts, and erratic moods. Denies active suicidal ideations, plan, or intent. No hx of attempts. Passive thoughts of and survival ambivalence. Reports visions of her BF finding her after she killed herself, stating I just want him to feel hurt like I hurt , however again denies plan or intent. Unhealthy and codependent relationship with BF as he is openly having an affair. Significant anxiety, fear, and difficulty leaving her comfort zone which is her house. Hx of trauma. Limited support. Unable to to identify purpose or meaning in her life. Estranged from most of her family due to pt's substance abuse past and her current relationship with BF (children disapprove). Denies current substance abuse. Denies HI or psychosis. Family hx of completed suicide (paternal uncle), addiction, and mental health issues . Goal Relevant Strengths/Supports: Insight, motivated at times, receptive of feedback, resilient Objectives Objective #1: Stated Objective: Pt will identify 2-3 anxiety and PTSD triggers and 2 coping skills to use when feeling anxious or irritable to manage anxiety as shown by reducing DSM-5 scores for anxiety. Interventions: Therapist will provide education on anxiety, avoidance behaviors, and maintenance cycles. Therapist will help pt explore personal symptoms and warning signs of anxiety and PTSD. Therapist will teach pt coping skills to improve emotional regulation, mindfulness, and distress tolerance to help pt cope with anxiety in the moment. Discharge Criteria: Pt will have accomplished this goal when she can identify at least 2 triggers and report using 2 coping skills to manage anxiety and PTSD. Additionally, pt will have accomplished this goal AEB reduction of DSM-5 scores for anxiety. Target Date: 06/07/23 Review Date: 05/03/23 Objective #2: Stated Objective: Pt will identify 2-3 cognitive distortions that lead to rumination and learn 2-3 ways to manage these thoughts to better manage anxiety. Interventions: Therapist will provide education on the most common cognitive distortions and teach pt the connection between thoughts, emotions, and feelings. Therapist will assist pt in identifying, challenging, and replacing dysfunctional thoughts with positive, more realistic thoughts. Therapist will use CBT and DBT techniques to help pt gain awareness of thinking errors and learn how to more effectively handle negative thoughts. Discharge Criteria: Pt will have accomplished this goal when can identify at least 2 cognitive distortions and at least 2 coping skills to manage negative thoughts. Target Date: 06/07/23 Review Date: 05/03/23 Problem/Goal #2 Problem/Goal #2 Stated Goal:: Pt will reduce depressive symptoms, negative self-talk, guilt, hopelessness, and irritability due to Major Depressive Disorder through [facility] Services. Description of Barriers: Limited coping skills, severe isolative behaviors, no transportation, unhealthy relationship, limited support, limited benefit from medications/counseling in recent past, hx of treatment non-compliance, significant trauma hx, difficulty trusting others. Functional Impact: Pt is a 52 y/o female with dx of Agoraphobia with panic disorder, PTSD, and MDD. No history of psychiatric admissions. Referred to [facility] by her outpatient therapist due to worsening depression, anxiety, and significant isolative/avoidant behaviors. I rarely leave my house . Pt was previously admitted to [facility] in November 2022 however did not successfully complete the program. Decompensation since 02/2023 which resulted in inconsistent use of medications, poor follow-up with mental health treatment, and psychosocial stressors. Exacerbation of mental health and erratic mood led to arrest for theft, which has caused guilt. Endorses poor sleep, poor appetite, low energy, low motivation, no pleasure in activities, hopelessness, worthlessness, irritability, anger outbursts, and erratic moods. Denies active suicidal ideations, plan, or intent. No hx of attempts. Passive thoughts of and survival ambivalence. Reports visions of her BF finding her after she killed herself, stating I just want him to feel hurt like I hurt , however again denies plan or intent. Unhealthy and codependent relationship with BF as he is openly having an affair. Significant anxiety, fear, and difficulty leaving her comfort zone which is her house. Hx of trauma. Limited support. Unable to to identify purpose or meaning in her life. Estranged from most of her family due to pt's substance abuse past and her current relationship with BF (children disapprove). Denies current substance abuse. Denies HI or psychosis. Family hx of completed suicide (paternal uncle), addiction, and mental health issues . Goal Relevant Strengths/Supports: Insight, motivated at times, receptive of feedback, resilient Objectives Objective #1: Stated Objective: Pt will learn and utilize 2-3 healthy coping strategies to better manage depressive symptoms and reduce DSM-5 symptoms for depression, anger, and anhedonia. Interventions: Through group and individual sessions, therapist will help pt identify triggers and warning signs of depression and emotional dysregulation including emotional, physical, and behavioral changes. Therapist will teach pt various coping skills to manage her symptoms. Therapist will use cognitive restructuring techniques and help pt gain awareness of negative thoughts that reinforce depressive cycles. Therapist will help pt incorporate mindfulness and emotional regulation skills when dealing with difficult situations. Discharge Criteria: Pt will have met this goal when she can report learning and using at least 2 coping skills to manage depressive symptoms and her DSM-5 scores for depression, anger, and anhedonia have decreased. Target Date: 06/07/23 Review Date: 05/03/23 Objective #2: Stated Objective: Client will create a behavior activation plan which will include a daily schedule with activities to increase mood and activity. Interventions: Through individual and group counseling will provide education on behavior activation and opposite action as well as help client identify activities, in line with increasing connection with others, decreasing isolation, and increasing purpose/social interaction. Discharge Criteria: Pt will have developed daily behavior activation goals and increased daily purpose. Target Date: 06/07/23 Review Date: 05/03/23
--- NOTE | 2023-04-13 09:05 | BH.SGPN.GN ---
Behaviors/Verbalizations/Mental Status: [] Eye contact is good. Motor activity is appropriate. Appearance is casual. Speech is Appropriate. Mood is euthymic. Affect is full. Thoughts are linear and logical. No evidence of psychosis. Reviewed daily check in sheet and no reports of suicidal ideations or intent. Client Response/Progress/Benefit: [] Pt was an active participant in group discussion. Attentive. This was patient's first process group and she briefly introduced herself to the group. Talked about her recent mental health struggles as well the impact that regret and guilt have on her current functioning. Shared her past addiction issues and current codependency issues which have kept her in an unhealthy relationship. Reports that she is proud that she made it her 2 days in a row . Significant isolative and avoidant behaviors have caused her to rarely leave her house. I feel good today . Reports that she is beginning to change her perspective on her external stressors which has helped with rumination and negative thoughts. Benefited from group support, encouragement , and feedback. Will continue in IOP to prevent decompensation, increase healthy coping skills, and Narrative Note: []
--- NOTE | 2023-04-13 10:15 | BH.SGPN.GN ---
Behaviors/Verbalizations/Mental Status: []Eye contact is good. Motor activity is appropriate. Appearance is casual. Speech is Appropriate. Mood is dysthymic. Affect is congruent. Thoughts are linear and logical. No evidence of psychosis. Client Response/Progress/Benefit: [] Pt was an active participant in group discussions. Attentive during psychoeducation on the communication styles and the obstacles to effective communication. Contributed during interactive discussion on the benefits of communicating effectively which included; having one's needs met, decreases stress and uncertainty, improves relationships, increases trust, and increases understanding of others. Worked well in small group in which pt and peers identified the benefits and disadvantages to the different communication styles. Benefited from increased understanding of communication styles and how these can impact effective communication. Pt reports identifying most with passive-aggressive communication and this is often in response to her boyfriend?s aggressive communication. Will continue in IOP to prevent decompensation, improve emotional regulation skills, and improve daily functioning. ? Narrative Note: []
--- NOTE | 2023-04-13 11:15 | BH.SGPN.GN ---
Behaviors/Verbalizations/Mental Status: []Pt alert and oriented, causally dressed and groomed. Eye contact fair. Motor activity appropriate. Speech within normal limits. Affect congruent, mood anxious. Thoughts linear, logical, no signs of hallucinations or delusions. Client Response/Progress/Benefit: [] Pt responded well to session AEB Pt listening attentively to others and providing input during group discussion on the pay offs and costs of the different communication styles. Pt able to connect how current communication style impacts mental health. Connected with peers comments about importance of using assertive communication. Pt reported she wants to work on actively listening to others instead of reactively responding without hearing the other person out. Pt seemed to benefit from increasing awareness of healthy strategies to improve communication. Will continue IOP tx to improve daily functioning, improve view of self, and prevent decompensation.
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
[2023-04-14 10:02] VITALS: BP 149/91; PULSE 80
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
--- NOTE | 2023-04-14 13:52 | BH.DR.ITP ---
Initial Treatment Plan Patient Information Visit Information: ADMISSION DATE: EXPECTED LOS: 4-6 weeks Problems/Symptoms Problem #1:: Depression Symptom:: Sadness, low energy, decreased concentration, passive thoughts of , biological disruption of sleep Problem #2:: Anxiety Symptom:: Worry, rumination, panic attacks, difficulty leaving home
--- NOTE | 2023-04-19 09:05 | BH.SGPN.GN ---
Behaviors/Verbalizations/Mental Status: [Patient was alert and oriented, appropriately dressed and groomed. Eye contact was good, motor activity normal, speech within normal limits. Affect congruent, mood content. Thoughts linear, logical, no signs of hallucinations or delusions. Reviewed Patients symptom tracker and the patient reports depressed mood, anxiety/panic attacks, agitation/irritability/anger, self-harm risk, and thoughts/risk of suicide within normal limits.] Client Response/Progress/Benefit: [Patient was engaged and open to the discussion. Patient reported her mood to be ?grateful?. Patients first win was that she had a good weekend with her boyfriend and was able to effectively communicate with him instead of being aggressive. Patients second win was that she has been trying to get herself in the mindset that she has to be accepting of her current relationship. She states this has been hard because she is a ?stubborn? person. Patients stressor is that she is waiting for her court date next month to find out if she has to go back to snf and is fearful, she will lose her place if she can?t pay the rent. Patient was interactive and respectful with other group members about their mental wins and stressors. Patient benefited from the discussion by listening to feedback and giving input on her peer?s stressors and mental health wins. Patient will continue with IOP treatment to help develop healthy skills, promote mood stability, and improve distress tolerance. ] Narrative Note: []
--- NOTE | 2023-04-19 10:10 | BH.SGPN.GN ---
Behaviors/Verbalizations/Mental Status: []Pt alert and oriented, casually dressed and groomed. Eye contact good. Motor activity appropriate. Speech within normal limits. Affect congruent, mood euthymic. Thoughts linear, logical, no signs of hallucinations or delusions. Client Response/Progress/Benefit: []Pt was an active participant during interactive group discussions. Attentive during psychoeducation on the six types of boundaries. Pt along with peers contributed to interactive discussion on defining what a boundary is and group identified challenges to setting boundaries. Group reviewed the 6 types of boundaries. Pt shared boundaries are hard for her because she doesn't want to upset others and fears abandonment. Pt shared she believes boundaries are important because it can stop others from taking advantage of you. Pt benefited from increased awareness and insight on the importance/benefit to setting health boundaries. Will continue IOP tx to improve distress tolerance, increase use of healthy coping skills, and prevent decompensation.
--- NOTE | 2023-04-19 11:15 | BH.SGPN.GN ---
Behaviors/Verbalizations/Mental Status: []Pt alert and oriented, casually dressed and groomed. Eye contact good. Motor activity appropriate. Speech within normal limits. Affect congruent, mood content. Thoughts linear, logical, no signs of hallucinations or delusions. Client Response/Progress/Benefit: [] Pt responded well to session AEB listening attentively to peers and providing input throughout. Pt attentive during psychoeducation on the different boundary styles. Pt identified she tends to be more porous when she shares about herself, but people think she is rigid and ?stand offish.? Pt was given a handout on strategies for healthy boundary setting. Identified wanting to practice reminding herself of the long-term benefits of the boundaries. Appeared to benefit from increasing insight to boundary setting and the impacts on mental health. Seemed to benefit from increased awareness of boundary styles and strategies to improve setting boundaries. Will continue IOP tx to improve mood stability, reduce negative thinking patterns, and increase healthy boundary setting. Narrative Note: []
--- NOTE | 2023-04-20 09:05 | BH.SGPN.GN ---
Behaviors/Verbalizations/Mental Status: [] Eye contact is good. Motor activity is appropriate. Appearance is casual. Speech is Appropriate. Mood is anxious. Affect is congruent. Thoughts are linear and logical. No evidence of psychosis. Reviewed daily check in sheet and no reports of suicidal ideations or intent. Client Response/Progress/Benefit: [] Pt was an active participant in group discussions. Attentive during short video on negative automatic thoughts, CBT therapy, and challenging thoughts. Pt reports her mental health wins is consistently attending the IOP program. Shared her struggles with consistent attendance, medication compliance, and mood stability during her last admission to [facility]. Shared how the impact that non-compliance with medications as well as worsening mental health had regarding recent legal issues. Identified guilt and remorse, however states it was a wake up call that I need to work on myself and not worry so much about others in my life . Making efforts to be more assertive rather than aggressive in her communication skills. Also shared utilizing acceptance skills throughout her day which has helped change her perception and automatic thoughts. Increasing her independence and decrease co-dependency. I can't recall a time in the past 14 months when I was happy however reports that overall her mood has been more positive since starring [facility]. Reports gaining most from supportive and non-judgemental environment. Emotion for today is content . Progress noted per pt report. Benefited from group support, encouragement, and feedback. Will continue in [facility] to prevent decompensation, increase healthy coping skills, and improve functioning. Narrative Note: []
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
== END 2023-04-21 23:59 ==
LOC: BHIOP 08:00
PROVIDERS: PCP Family Medicine; Referring Provider Psychiatry & Neurology Psychiatry; Visit Provider Psychiatry & Neurology Psychiatry
DX: F40.01 Agoraphobia with panic disorder (principal); F43.10 Post-traumatic stress disorder, unspecified; F33.2 Major depressive disorder, recurrent severe without psychotic features; F17.210 Nicotine dependence, cigarettes, uncomplicated; F14.91 Cocaine use, unspecified, in remission
CPT/HCPCS: S9480; 90837; 90853

== ENCOUNTER 2023-04-22 07:50 | Outpatient (RCR) | payer MEDICARE, MEDICAID, SELFPAY ==
[2023-04-22 00:35] VITALS: BP 149/91; PULSE 80
--- NOTE | 2023-04-26 09:00 | BH.SGPN.GN ---
Behaviors/Verbalizations/Mental Status: [Patient was alert and oriented, appropriately dressed and groomed. Eye contact was good, motor activity normal, speech within normal limits. Affect congruent, mood content. Thoughts linear, logical, no signs of hallucinations or delusions. Reviewed Patients symptom tracker and the patient reports depressed mood, anxiety/panic attacks, agitation/irritability/anger, self-harm urges, and thoughts/risk of suicide within normal limits.] Client Response/Progress/Benefit: [Patient was engaged and open to the discussion. Patient reported her mood to be ?fed up but trying to be hopeful?. Patients first win was that this weekend she and her boyfriend had their granddaughter over and they spent time together. Patient stated her second win was that she has been actively using her assertive communication skills although it is challenging. Patient shared that her stressor has to do with her legal problems and old feelings that come with it. She shared that her boyfriend cheated on her when she was in long-term last time and she is fearful that he will again if she goes back. Patient was interactive and respectful with other group members about their mental wins and stressors. Patient benefited from the discussion by listening to feedback and giving input on her peer?s stressors and mental health wins. Patient will continue with IOP treatment to help develop healthy skills, promote mood stability, and improve distress tolerance. ] Narrative Note: []
--- NOTE | 2023-04-26 10:10 | BH.SGPN.GN ---
Behaviors/Verbalizations/Mental Status: []Pt alert and oriented, causally dressed and groomed. Eye contact fair. Motor activity appropriate. Speech within normal limits. Affect constricted, mood agitated. Thoughts linear, logical, no signs of hallucinations or delusions. Client Response/Progress/Benefit: [] Pt was actively engaged, providing input, and taking notes throughout session. Connected with the topic of pitfalls and listened to group discussion on internal and external barriers that prevent from choosing a healthier path to mental wellness. Group worked together to identify examples of personal internal pitfalls. During activity pt struggled with distress tolerance, needing to sit out and expressing frustration about failure. Pt struggled with challenging negative thoughts in the activity. Pt did return to the activity, but struggled to remain positive. Pt benefited from group as pt learned to better identify and normalize potential barriers to improving mental health symptoms. Pt also gained awareness of the difference between external triggers and self-sabotaging behaviors.Progress could be hindered if pt struggles with regulating uncomfortable emotions. Pt will continue IOP tx to challenge distorted thoughts, improve distress tolerance, and prevent decompensation.
--- NOTE | 2023-04-26 11:10 | BH.SGPN.GN ---
Behaviors/Verbalizations/Mental Status: []Pt alert and oriented, casually dressed and groomed. Eye contact good. Motor activity appropriate. Speech within normal limits. Affect constricted, mood irritable and depressed. Thoughts linear, logical, no signs of hallucinations or delusions. Client Response/Progress/Benefit: [] Pt receptive of session, engaged throughout AEB actively contributing and listening to discussion, as well as taking notes. Pt participated in the experiential activity and processed with group how their emotions, perspective, and reactions positively and negatively impacted the outcome. Pt shared in the activity that she really struggled because failing in the activity ?triggered all the failures in my life? so pt wanted to give up. Pt did a good job of participating in a different way. Pt identified pitfalls they struggle with and shared wanting to work on pitfall of shutting down and wanting to give up by trying opposite action. Benefited from identifying personal pitfalls and strategies to overcome these pitfalls. Will continue IOP tx to prevent decompensation, gain distress tolerance skills, and improve daily functioning. Narrative Note: []
--- NOTE | 2023-04-27 09:05 | BH.SGPN.GN ---
Behaviors/Verbalizations/Mental Status: [] Eye contact is good. Motor activity is appropriate. Appearance is casual. Speech is Appropriate. Mood is irritable. Affect is congruent. Thoughts are linear and logical. No evidence of psychosis. Reviewed daily check in sheet and no reports of suicidal ideations or intent. Client Response/Progress/Benefit: [] Pt participated at times during the group discussion. Attentive at times. Daily symptom tracker notes 05/24 for irritability. Pt reports being irritable this AM and for the past several days. Low frustration tolerance and significant negative thoughts and self-talk. I'm trying to have a good day . I didn't want to come in today . She blames her mood on external events such as BF and group topic yesterday. States that group topic yesterday made her realize how much I fucked up in the past . Excessive guilt and ruminations stating my thoughts are taking over . Significant decompensation since last week. Maybe my meds are leveling off . Group was supportive and provided encouragment and feedback which was beneficial. Narrative Note: []
--- NOTE | 2023-04-27 10:15 | BH.MDN ---
Multi-Disciplinary Note Note 30-min Individual: Time Started:: 10:15 Date: 04/27/23 Purpose of session/treatment goals addressed:: Pt reports being anxiety, depression, tired, and irritable this AM. She is struggling to stay in group and reports negative automatic thoughts, ruminations, and hopelessness. Eye Contact:: Fair Motor Activity:: Restless Appearance:: Casual Speech:: Appropriate Mood:: Irritable and Depressed Affect:: Congruent Thoughts:: Linear, Logical and No evidence of hallucinations/delusions noted Staff Interventions:: thought challenging, motivational interviewing and other (allowed pt to vent frustrations; processed emotions) Client Response:: Tearful at times during the sessions. Pt reports decompensation since last week when she signed the affidavit regarding her upcoming court trial. She reports that she admitted wrong-doing which trigged thoughts about all the times she's fucked up in her life. Guilt and remorse related to past actions. Unable to stop or slow down negative thoughts which led to irritability and depression. Insight in history of self-sabotaging and feels powerless to stop this. Numerous other triggers this weekend to her past fuck ups as she spend time with her BF's grandkids which just a reminder that due to her past actions she is estranged from her grandkids. I can't stop thinking about all of this . Risks/Concerns:: No concerns noted. Denies SI, plan, or intent. Reports being motivated to change. Progress Toward Goals/Plan:: Regression noted since 04/23/23. Experienced triggers and reminders that significantly impacted her mood (anxiety, irritability, guilt, anxiety, and depression). Limited skills to manage these reminders which led to decompensation. Tearful throughout the session and feels that she will continue to regress and self-sabotage. Responds well to thought-challenging, reframing, and other skills while in session, however struggles to utilize these independently. Reports feeling better after processing her struggles with therapist. Will continue in IOP to prevent decompensation, stabilize mood, increase healthy coping, and to improve functioning. Time Stopped:: 10:50
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
--- NOTE | 2023-04-28 11:15 | BH.SGPN.GN ---
Behaviors/Verbalizations/Mental Status: [] Client alert and oriented, casually dressed and groomed. Eye contact good. Motor activity appropriate. Speech within normal limits. Affect constricted, mood content. Thoughts linear, logical, no signs of hallucinations or delusions. Client Response/Progress/Benefit: [] Client responded well to session, engaged and taking notes throughout. Worked with group to connect components of the experiential activity with characteristics of healthy and unhealthy relationships. Attentive during psychoeducation about characteristics of healthy, unhealthy, and abusive relationships. Client self-reflected on healthy and potentially unhealthy components of one of her current relationships; however, elected not to share this with the group. Did report wanting to work on improving open communication and willingness to be vulnerable. Appeared to benefit from identifying the current healthy relationship attributes and an area client wants to work on to build healthier relationships. Client to continue IOP to increase healthy coping skills, stabilize mood, and prevent decompensation. Narrative Note: []
--- NOTE | 2023-04-28 11:38 | BH.MDN ---
Multi-Disciplinary Note Note 45-min Individual: Time Started:: 09:22 Date: 04/28/23 Purpose of session/treatment goals addressed:: Purpose of session was to address tx plan goal #1 obj #1 and #2 Eye Contact:: Good (tearful throughout) Motor Activity:: Appropriate Appearance:: Casual Speech:: Appropriate Mood:: Euthymic and Anxious Affect:: Congruent Thoughts:: Linear, Logical and No evidence of hallucinations/delusions noted Staff Interventions:: motivational interviewing, psychoeducation on: (trauma impacts throughout life), CBT techniques, rapport building and strengths perspective Client Response:: Pt responded well to session, actively engaged throughout. She reports feeling more positive this morning than Wednesday, indicating she had been anxious and irritable earlier in the week. Shared that she ended up struggling to manage her irritability during the group activity on Wednesday and opted not to participate. Reports apologizing to the group this morning and provided insight regarding a connection between quitting the activity and her hx of self-sabotaging behaviors. Pt reflected that she had been told from a young age she would ?never amount to anything? or be successful. As a result she has historically felt it would be more acceptable to not try rather than prove other?s ?right? if she would try and fail. Shared this has prevented her from personal growth, enable maladaptive coping behaviors and toxic relationships, as well as prevented her from actively internalizing skills and engaging in therapy. Discussed wanting to break this cycle and begin making meaningful changes. Pt identified areas she has already begun working on as more open, honest, and assertive communication within her relationship, advocating for her needs and establishing healthier boundaries proactively, striving to accept her past and understand how it impacts her today, as well as increased vulnerability in therapy. Shared being vulnerable and discussing her emotions and past trauma with the intention of understanding and developing adaptive coping skills has been difficult as it is significantly out of her comfort zone. Reports that in the past she would turn to substance use to avoid feeling vulnerable or addressing difficult emotions. Pt shared following session last week she had felt vulnerable and exposed and immediately after had to address current legal issues, which triggered urges to use. Instead, pt communicated this with her boyfriend who provided emotional support and validation, allowing pt to work through these uncomfortable emotions and prevent relapse. Did well to discuss strategies for coping with unexpected emotions throughout the therapeutic process. Pt identified healthy ?hands on? distraction, spending time with sober supports, and journaling as skills she would like to begin utilizing. Plans to begin a daily journal this week. Risks/Concerns:: None noted. Pt denies suicidal ideation, plan, or intent as of this date 04/28/23. Progress Toward Goals/Plan:: Progress noted. Pt reports improvements in mood, ability to challenge her perspective, and emotion regulation. Pt reports beginning to more effectively communicate with her boyfriend which has reduced conflict and anxiety as well. Pt has been receptive of psychoeducation on trauma and it?s impact on emotion regulation. Pt would like to continue to learn and understand how her childhood trauma has impacted her as an adult and develop healthier coping mechanisms. Pt continues to struggle with mood stability, anxiety and intrusive thoughts, self-worth, and managing stress related to her current relationship which is toxic to pt?s mental health. Pt also has a hx of inconsistent skill application and tx engagement. Recommended continued IOP tx to stabilize mood, prevent relapse, develop more adaptive coping skills, and prevent decompensation. Time Stopped:: 10:01
--- NOTE | 2023-04-28 12:00 | PCM.BH.PN ---
Progress Note Progress Note: History of Present Illness/Interim History: The patient is a 52-year-old female who was last seen 2 weeks ago and at that time her Cymbalta dose was decreased to 30 mg as she was having side effects from starting back on Cymbalta on her own at too high of a dose. She has a history of depression, agoraphobia, PTSD, panic attacks and cocaine crack use disorder (sober for over 2 years). The patient states that she is tolerating the Cymbalta well and feels that he she has had some improvement. She has less sadness than before but still remains depressed. Her passive thoughts of have resolved and she denies these now. She has panic attacks only when her boyfriend leaves the house to see his other girlfriend. She denies any suicidal ideation, plan for suicide, homicidal ideation, hallucinations or delusions. Her anxiety remains and she attributes this to the ongoing stressor of her court issues for her theft charges. She had a signed an affidavit and has a court date and her plan May 17 and she feels that this has made her legal troubles more real . This has stressed her out but she feels that she is learning valuable skills in the IOP and she has become much more aware of the fact that she has been self sabotaging herself by getting into trouble. She has Ambien for sleep and it does help her sleep well but she is only taken it 5 times in the past 2 weeks. She continues to have neuropathy and possible restless leg syndrome at times but does not want any other sleep medications. She admitted that when she was on Seroquel in the past she used to abuse it. She refused Vistaril last time. Current Psychiatric Medications: [] Cymbalta 30 mg p.o. daily (x 2 weeks); Ambien 5 mg p.o. nightly (as needed only) Mental Status Examination: [] The patient is a 52-year-old female who is overweight but otherwise appears normal for stated age and is casually dressed and groomed with good hygiene. She has a mild limp but has no psychomotor agitation or retardation. She is cooperative during the interview and eye contact is good. Speech is normal rate and rhythm and fluent with no pressure. Mood is depressed and anxious. Thought process is goal-directed and organized. Thought content: There remains evidence of fear of abandonment by her boyfriend. There is no evidence of passive thoughts of , suicidal ideation, plan for suicide, homicidal ideation, hallucinations or delusions. Reality testing is intact. Judgment is intact. Insight good. Impulsivity moderate. Diagnoses: [] 1. 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 PTSD 3. Major depressive disorder, recurrent, severe without psychosis 4. Strong cluster B traits 5. History of cocaine/crack use disorder in full remission for 2 years 6. Primary support, work issues Plan: [] The patient will continue the IOP in behavioral health at [facility] as the structure, support, education and group therapy will hopefully prevent worsening of the patient's symptoms which could require hospitalization. She felt safe during the interview and if it anytime she does not feel safe she will let us know or go to the emergency room. The risk, options, possible complications and side effects of the medication were again discussed with the patient and she understands accepts these. She agrees to increase her Cymbalta now to 60 mg p.o. daily which she was on in the past and found it helpful. She will continue to follow-up with her outpatient providers and I will see the patient in follow-up in several weeks.
--- NOTE | 2023-05-03 09:00 | BH.SGPN.GN ---
Behaviors/Verbalizations/Mental Status: [Patient was alert and oriented, appropriately dressed and groomed. Eye contact was good, motor activity normal, speech within normal limits. Affect congruent, mood tired. Thoughts linear, logical, no signs of hallucinations or delusions. Reviewed Patients symptom tracker and the patient reports low to moderate in anxiety/panic attacks, and agitation/irritability/anger, and low in depressed mood, self-harm urges, and thoughts/risk of suicide.] Client Response/Progress/Benefit: [Patient was engaged and open to the discussion. Patient reported her mood to be ?tired?. Patients first win was that she was able to come to group today although she didn?t sleep much. She shared that her boyfriend had went to a libertarian which kept her up because she was afraid that he might have been doing things he ?shouldn?t be?. Patients second win was that her and her boyfriend continue to practice assertive communication skills. Patient stated her stressor continues to be her court charges. She shared that she feels guilty that her boyfriend got charged with the same thing as well and he could be put in half-way too. Patient was interactive and respectful with other group members about their mental wins and stressors. Patient benefited from the discussion by listening to feedback and giving input on her peer?s stressors and mental health wins. Patient will continue with IOP treatment to help develop healthy skills, promote mood stability, and improve distress tolerance. ] Narrative Note: []
--- NOTE | 2023-05-03 10:10 | BH.SGPN.GN ---
Behaviors/Verbalizations/Mental Status: []Pt alert and oriented, casually dressed and groomed. Eye contact good. Motor activity appropriate. Speech within normal limits. Affect congruent, mood content. Thoughts linear, logical, no signs of hallucinations or delusions. Client Response/Progress/Benefit: []Pt was an active participant in activity and taking notes during group discussion. Attentive during psychoeducation on coping skills, why people use unhealthy coping skills, and how to replace unhealthy coping skills. Pt shared she personally struggles with enforcing her boundaries, resulting in emotional lability and lashing out. Group came up with list of negative coping skills including not asking for help, avoidance, isolating, and sleeping. Group discussed the effects of how negative coping skills can impact mental health in a negative way. Benefited from increased understanding of unhealthy coping skills and the need for developing healthy internal and external coping skills. Pt will continue IOP tx to decrease maladaptive coping, continue improving mood stability, and prevent decompensation. Narrative Note: []
--- NOTE | 2023-05-03 11:10 | BH.SGPN.GN ---
Behaviors/Verbalizations/Mental Status: []Pt alert and oriented, casually dressed and groomed. Eye contact fair. Motor activity appropriate. Speech within normal limits. Affect congruent, mood anxious. Thoughts linear, logical, no signs of hallucinations or delusions. Client Response/Progress/Benefit: []Pt responded well to session, taking notes and contributing. Group discussed the different categories of coping skills which included distraction, emotional release, grounding, self-love, and thought challenging.? Pt participated in creating a coping skills ?menu? from the five categories of coping skills. Pt's coping skill menu included:eat healthy, exercise, meditation, do something she likes to do, and GLAD journal. Appeared to benefit from increasing repertoire of healthy coping skills. Will continue IOP tx to increase consistent use of healthy coping skills, improve view of self, and prevent decompensation.
--- NOTE | 2023-05-06 10:05 | BH.SGPN.GN ---
Behaviors/Verbalizations/Mental Status: []Pt alert and oriented, neatly dressed and groomed. Eye contact good. Motor activity appropriate. Speech within normal limits. Affect constricted, mood tired. Thoughts linear, logical, no signs of hallucinations or delusions. Client Response/Progress/Benefit: [] Pt was engaged and open to the discussion and appeared to respond well to the group. Pt used active listening and gave feedback during group discussion. Group discussed what contributes to a person?s perspective and how perspective can positively or negative impact mental health treatment. Pt shared their perspective today is in the middle of the perspective continuum and that pt?s fatigue is contributing to this, but she is still trying to be positive. Pt stated that coming to IOP and being around people helps challenge her perspective. Pt appeared to benefit from increasing awareness of different perspectives and how they can affect mental health. Pt will continue IOP treatment to prevent decompensation, increase distress tolerance skills, and improve daily functioning. Narrative Note: []
--- NOTE | 2023-05-06 12:04 | BH.MDN_ITS ---
Multi-Disciplinary Note Note 45-min Individual: Time Started:: 09:10 Date: 05/06/23 Purpose of session/treatment goals addressed:: Purpose of session was to address tx goal #1. Eye Contact:: Good Motor Activity:: Restless (due to pain in legs/hip/back) Appearance:: Casual Speech:: Appropriate Mood:: Anxious and Irritable Affect:: Congruent Thoughts:: Linear, Logical and No evidence of hallucinations/delusions noted Staff Interventions:: thought challenging, motivational interviewing, CBT techniques (behavior chain analysis) and strengths perspective Client Response:: Client receptive of session, actively engaged and openly discussed current symptoms and stressors reinforcing pt anxiety and irritability. Reports currently feeling ?agitated? despite waking up in a positive mood. Able to identify that increased physical pain is contributing to difficulties in maintaining mood stability. Pt explained that cleaning the apartment and changes in the temperature are likely contributing to experiencing more pain. She noted trying not to allow small things to bother her or further increase agitation but is struggling to do so. Shared recently noticing if she is ?not in control of the small things? her anxiety and irritability are worse. Initially reports uncertainty as to why, but upon further discussion connected this to her upcoming court date. Provided insight that she may be trying to control anything she can due to feeling out of control about what is going to happen with court, as well as within her relationship should she be sentenced to skilled nursing time. Noted underlying fears her boyfriend will cheat or not take care of their apartment and finances, as he has done this when pt was previously incarcerated several years ago. Pt shared her difficulties in trusting him has created some tension within the relationship, but pt is trying to work on improving their communication and rebuild trust. Pt explained that overall they have been getting along well, however at times her boyfriend struggles with ?nitpicking?. Pt is doing well to use emotion regulation skills such as removing herself from the environment, deep breathing, and thought challenging to prevent from further escalating into an actual argument. Provided an example from the night before in which pt spent several hours cleaning the apartment and preparing a nice meal for Mast?s Day; however, upon returning home her boyfriend greeted pt by asking ?why isn?t there any soda in the fridge??. Described feeling disappointed and unappreciated as a result, but did not allow his comment to ruin their evening. Shared trying to be empathic and remind herself he was likely tired and stressed from working all day. Therapist worked with pt to reflect on her own emotions and behaviors when returning home from a long day. Pt able to identify a specific example in which she also engaged in ?nitpicking? behavior recently after returning home from IOP tx. Discussed plans to communicate with her boyfriend how they can best support one another when the other may be tired, as well as how to prevent from allowing emotions from the day negatively contribute to interactions with one another. Risks/Concerns:: None noted pt denies SI, plan, or intent as of this date 05/06/23. Progress Toward Goals/Plan:: Progress noted. Pt continues to remain consistent in IOP attendance and engagement. She shared feeling the support of the group environment and information learned has been helpful in improving her mood and ability to manage mental health sx and stressors. Pt continues to report struggling with uncomfortable feelings about allowing herself to open up and begin working on understanding and managing her trauma triggers and maladaptive coping behaviors. She is however doing well to utilize grounding skills and reach out to her boyfriend or outpatient therapist during these times. Pt is planning to begin EMDR therapy and is anxious about this, shared she may wait to begin until after her upcoming court date. Fears she will struggle more if she begins trauma work and is then incarcerated. Pt mood continues to be improved but she struggles at times with irritability and difficulties regulating her emotions in the moment. Pt to continue IOP to stabilize mood, improve coping skill application, and prevent decompensation. Time Stopped:: 09:53
--- NOTE | 2023-05-07 12:40 | BH.TPR ---
Treatment Plan Review Demographics Date of Admission:: 04/12/23 Date of Treatment Plan Review:: 05/05/23 Admitting Diagnoses:: 1. 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 PTSD 3. Major depressive disorder, recurrent, severe without psychosis 4. Strong cluster B traits 5. Primary support, work and health issues Current Diagnoses:: 1. 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 PTSD 3. Major depressive disorder, recurrent, severe without psychosis 4. Strong cluster B traits 5. Primary support, work and health issues Patient Status Patient's Response to Treatment:: Pt has responded well to treatment AEB mostly consistent attendance to sessions. Pt contributes at times to group discussions and reports follow through on using skills outside treatment environment. Status of Current Problems and Symptoms: Pt is reporting decreased depression and anxiety. Pt still reports mild to moderate anxiety, irritability, and depression, but notes improvement. Pt reports having improved motivation to engage in activities outside of the home, expand her social support network, gain more independence, and continue to improve her relationship. Pt continues to report struggling with anxiety regarding an upcoming court date, 05/17/23, which has impacted pt ability to consistently regulate her emotions and manage irritability triggers as well. Pt wants to work on being able to manage her emotions, daily stressors, and trauma triggers more effectively. Per pt's DSM 5 cross-cutting scores at review her overall mental health symptoms have decreased by 14%. Progress Problem #1: Problem Name:: Anxiety, PTSD, Panic Status of Goals:: Obj 1 ? progress with ongoing work encouraged. Pt is able to identify several triggers for anxiety and PTSD. She is also improving ability to recognizing healthy calming skills like breathing, grounding, taking breaks, reaching out to supports, and healthy distractions. Pt has reported improvement with using these skills but could benefit from reinforcement to demonstrate consistency of skill use. Despite increase in insight and skill application, pt DSM-5 scores for anxiety have increased. This is likely a direct result of her upcoming court date. Obj 2 - progress noted, ongoing work encouraged. Pt can identify distortions reinforcing her anxiety and often leading to misunderstanding or increased irritability. Pt however struggles with being able to independently reframe and challenge her thoughts consistently outside of the treatment environment. Team Recommendations:: Team recommends continued work on current goals and objectives to reinforce skills. Will focus on helping client create a concreate anxiety and PTSD coping plan. Problem #2: Problem Name:: Depression, irritability Status of Goals:: Obj 1 - met. Client can identify healthy coping skills like opposite action, taking a break, self-care, and changing environment to manage depression and irritability sx and triggers. Per DSM 5 client's depression has reduced by 33% and irritability by 67%. Obj 2 ? continued progress needed. Client can identify several ?up activities? to aid in reducing depression and improving mood. Pt additionally reports increased engagement in activities outside of the home, however has yet to create a concrete action plan. Team Recommendations:: Team recommends continued work on current goals and objectives to reinforce skills. Will focus on helping client identify ways to start trusting others and start building a healthy support network.
--- NOTE | 2023-05-11 10:15 | BH.SGPN.GN ---
Behaviors/Verbalizations/Mental Status: [] Eye contact is fair. Motor activity is appropriate. Appearance is casual. Speech is Appropriate. Mood is irritable and dysthymic. Affect is constricted. Thoughts are linear and logical. No evidence of psychosis. Client Response/Progress/Benefit: [] Pt was an engaged participant AEB listening attentively to others, taking notes, and providing feedback in small group discussions. Did struggle at times with saying unhelpful comments under her breath, but seemed to recover and engage in discussions. Attentive during psychoeducation AEB by note taking and providing some input. Pt worked along with peers in small groups to define inappropriate guilt and appropriate guilt. Interactive discussion on examples of both inappropriate and appropriate guilt. Pt able to connect impact inappropriate guilt can have on MH. Benefited from increased awareness of guilt and the differences between appropriate and inappropriate guilt. Will continue in IOP to improve confidence, continue working on boundary setting, and prevent decompensation.
--- NOTE | 2023-05-11 11:15 | BH.SGPN.GN ---
Behaviors/Verbalizations/Mental Status: []Pt alert and oriented, casually dressed and groomed. Eye contact good. Motor activity appropriate. Speech within normal limits. Affect congruent, mood depressed and agitated. Thoughts linear, logical, no signs of hallucinations or delusions. Client Response/Progress/Benefit: [] Pt engaged participant AEB listening attentively to others and providing input throughout group. Pt worked within their small group to identify strategies to manage inappropriate guilt. Shared a personal example of appropriate guilt as disappointment in herself for allowing someone else's choices to negatively impact her mood and mental health. Insight this cues a fear of abandonment and reinforces low self-worth, resulting in continuing to allow her boundaries to be crossed. Pt wants to work on combatting inappropriate guilt by reminding herself to continue in tx and reenforce her boundaries. Pt seemed to benefit from learning about strategies to manage appropriate and inappropriate guilt. Pt will continue IOP tx to improve mood stability, continue to improve daily functioning, and increase distress tolerance skills. Narrative Note: []
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
--- NOTE | 2023-05-17 09:05 | BH.SGPN.GN ---
Behaviors/Verbalizations/Mental Status: [Patient was alert and oriented, appropriately dressed and groomed. Eye contact was good, motor activity normal, speech within normal limits. Affect congruent, mood apathetic. Thoughts linear, logical, no signs of hallucinations or delusions. Reviewed Patients symptom tracker and the patient reports depressed mood, anxiety/panic attacks, agitation/irritability/anger, self-harm urges, and thoughts/risk of suicide within normal limits.] Client Response/Progress/Benefit: [Patient was engaged and open to the discussion. Patient reported her mood to be ?detached?. Patient shared that her last couple of days have been stressful. She stated that her boyfriend ?makes everything about him? and went through her journal when she was not home. Patients first win is that she has decided that she needs to choose herself because she ?won?t get better? if she allows her boyfriend to drag her down with him. Patient stated she doesn?t care about what he thinks about what she wrote in her journal because that is for her to ?help herself and not go off on him?. Patients? stressor is that her court date got continued to June 03 and that choosing herself is hard for her to do. Patient was interactive and respectful with other group members about their mental wins and stressors. Patient benefited from the discussion by listening to feedback and giving input on her peer?s stressors and mental health wins. Patient will continue with IOP treatment to help develop healthy skills, promote mood stability, and improve distress tolerance. ] Narrative Note: []
--- NOTE | 2023-05-17 10:10 | BH.SGPN.GN ---
Behaviors/Verbalizations/Mental Status: [] Eye contact is fair to good. Motor activity is appropriate. Appearance is casual. Speech normal. Mood is euthymic. Affect is congruent. Thoughts are linear and logical. No evidence of psychosis. Client Response/Progress/Benefit: [] Client was an active participant in group discussion and sat out of experiential activity, but verbally participated. Attentive during psychoeducation on resilience. Participated in interactive discussion with peers on the definition of resilience and where it comes from . Group identified that resiliency can be impacted by; past experiences, learned behaviors, and trauma. Group also worked together to identify the benefits of being resilient and how it is related to mental health which included having more gerard and becoming stronger. Able to relate experiential activity of group juggle to topics of resilience. Worked well with peers in small group in which they identified factors that contribute to resilience. Benefited from increased awareness of resilience and the factors that contribute to building resilience. Will continue in IOP to prevent decompensation and further promote mood stability. Narrative Note: []
--- NOTE | 2023-05-17 11:10 | BH.SGPN.GN ---
Behaviors/Verbalizations/Mental Status: [] Client alert and oriented, neatly dressed and groomed. Eye contact fair. Motor activity appropriate. Speech within normal limits. Affect congruent, mood euthymic. Thoughts linear, logical, no signs of hallucinations or delusions Client Response/Progress/Benefit: [] Client responded well to session AEB completing the resilience worksheet provided. Client actively participated in the discussion and worked cooperatively with group to identify strategies to enhance each of the components discussed. Client reports belief they already use resilience trait of accepting help.? Client discussed that they could work on not viewing crisis as insurmountable. Client seemed to benefit from discussing strategies for improving personal resilience and identifying resilience traits client already possesses. Will continue IOP tx to increase emotional regulation and distress tolerance skills. Narrative Note: []
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
--- NOTE | 2023-05-18 10:15 | BH.SGPN.GN ---
Behaviors/Verbalizations/Mental Status: []Pt alert and oriented, casually dressed and groomed. Eye contact good. Motor activity appropriate. Speech within normal limits. Affect congruent, mood dysthymic and anxious. Thoughts linear, logical, no signs of hallucinations or delusions. Client Response/Progress/Benefit: [] Pt responded well to session AEB contributing to small group discussion, taking notes, and listening attentively to others. Group discussed the benefits of managed anger and anger as a secondary emotion. Pt shared perspective on personal benefits of anger as not feeling vulnerable/exposed. Pt completed worksheet on anger triggers and personal warning signs of anger. Pt identified a common trigger as being talked about by other's and not being good enough at something. Appeared to benefit from increased knowledge of the anger cycle as well as personal triggers. Will continue IOP tx to promote mood stability, reduce distorted thought patterns and improve boundaries, and improve daily functioning. Narrative Note: []
--- NOTE | 2023-05-18 11:15 | BH.SGPN.GN ---
Behaviors/Verbalizations/Mental Status: []Client alert and oriented, casually dressed and groomed. Eye contact fair. Motor activity appropriate. Speech within normal limits. Affect constricted, mood dysthymic. Thoughts linear, logical, no signs of hallucinations or delusions. Client Response/Progress/Benefit: []Pt was engaged throughout AEB contributing to group discussion and self-reflection. Group finished processing cues to anger worksheet. Pt contributed as group brainstormed healthy coping skills for better managing anger which included: music, walking/exercise, taking a break, grounding tools, reflection, and journaling. Pt identified personal anger cycle able to make connections on how own thoughts/evaluations of a situation can worsen anger feelings. Pt appeared to benefit from identifying different techniques to manage anger as well as gaining awareness of potential consequences of unmanaged anger. Pt to continue IOP to improve distress tolerance, continue working on setting boundaries, and prevent decompensation.
== END 2023-05-20 23:59 ==
LOC: BHIOP 07:50
PROVIDERS: PCP Family Medicine; Referring Provider Psychiatry & Neurology Psychiatry; Visit Provider Psychiatry & Neurology Psychiatry
DX: F40.01 Agoraphobia with panic disorder (principal); F43.10 Post-traumatic stress disorder, unspecified; F33.2 Major depressive disorder, recurrent severe without psychotic features
CPT/HCPCS: S9480; 90832; 90834; 90837; 90853

== ENCOUNTER 2023-05-21 06:57 | Outpatient (RCR) | payer MEDICARE, MEDICAID, SELFPAY ==
[2023-05-21 00:14] VITALS: BP 149/91; PULSE 80
--- NOTE | 2023-05-24 09:32 | BH.COMM ---
Communication Note Communication with Client Communication Note: Pt cancelled IOP today due to illness. She rescheduled for .
--- NOTE | 2023-05-25 09:33 | BH.COMM ---
Communication Note Communication with Client Communication Note: Pt cancelled IOP today due to illness.
--- NOTE | 2023-05-26 09:33 | BH.COMM ---
Communication Note Communication with Client Communication Note: Pt initially showed for IOP today, but left shortly after arrival due to illness. She was scheduled with program psychiatrist today but able to do so due to leaving early.
--- NOTE | 2023-05-27 09:45 | BH.COMM ---
Communication Note Communication with Client Communication Note: Pt scheduled for IOP group and individual sessions today. Pt however did not show or call to cancel. Therapist attempted to reach out but pt did not answer and voicemail was full so therapist was unable to leave a message.
--- NOTE | 2023-05-28 11:30 | BH.MDN ---
Multi-Disciplinary Note Note 60-min Individual: Time Started:: 13:06 Date: 05/28/23 Purpose of session/treatment goals addressed:: To address current stressors impeding pt progress and reinforcing sx of depression and anxiety. Worked to identify healthy behavior activation goal for the weekend. Eye Contact:: Good (tearful) Appearance:: Casual Speech:: Pressured Mood:: Irritable and Depressed Affect:: Congruent Thoughts:: Linear, Logical and No evidence of hallucinations/delusions noted Staff Interventions:: thought challenging, motivational interviewing, CBT techniques, strengths perspective and goal setting Client Response:: Pt receptive of session, willing to come in and meet with this therapist today due to pt missing prior scheduled sessions. Pt reports she had cancelled during the week due to a combination of illness and feeling more depressed. Identified the source of her depression as continuing to allow her relationship to dictate her emotions. Expressed ?He doesn?t take any ownership of how bad he?s messed me up. I didn?t used to be like this, I used to live alone and never needed a relationship before?. Therapist validated and worked with client to identify what is in her control that may be continuing to reinforce her depression and maintain the toxic relationship. Pt acknowledges her codependency, unhealthy communication patterns, and putting her ruminating thoughts about what he is doing when not home above her own mental health needs. Admits to engaging in self-sabotaging behaviors of oversleeping, isolation, all or nothing thinking, decreased self-care, and negative self-talk. Using motivational interviewing techniques, therapist worked with pt to identify what she would like to see for herself outside of the relationship. Pt provided insight that her self-esteem and sense of purpose began to faulter when her knee pain worsened to the point in which pt was unable to work. Pt shared she had felt more confident when engaged with others outside of the home and had been involved in the [employer] workforce readiness program until her knee issues. Shared giving up and has not pursued the knee replacement surgery needed. Identified this maintains pt?s isolation and feelings of being dependent on others. Insight that jealousy of her partner?s ability to get back into full-time employment and self-sufficiency may be impacting her mental health and resulting in pt creating additional conflict. Expressed a desire to apply self-care skills actively and more intentionally. Shared a goal of [facility] and identified a support she could ask to attend with her. Additionally shared plans to schedule an appointment with her PCP to revisit the possibility of double knee-replacement and look into requirements to re-enroll in the [employer] program. Risks/Concerns:: None noted. Pt denies suicidal ideation, plan, or intent as of this date 05/28/23. Progress Toward Goals/Plan:: Some regression noted. Pt reports isolating, avoiding, and reduced self-care over the past week due to ongoing issues within her relationship. Pt has insight into the impacts of her toxic relationship on her mental health; however, continues to struggle with healthy boundaries, conflict resolution, and communication skills. Pt relationship stress reinforces negative self-talk, increased stress, and self-sabotage behaviors. Pt reports a desire to reduce dependance and increase engagement in self-care activities, behavior activation, and improve self-talk. Despite pt reports of motivation to increase adaptive coping and pt working to understand PTSD sx and impacts on her emotion regulation, she continues to struggle significantly with mood stability. Pt will remain in IOP tx to continue to stabilize mood, promote adaptive coping skill application, improve boundaries, and prevent decompensation. Time Stopped:: 14:03
--- NOTE | 2023-05-31 10:24 | BH.COMM ---
Communication Note Communication with Client Communication Note: Pt scheduled for IOP group and individual sessions today. Pt however called to cancel due to stressors in the home. Pt reports plans to attend groups tomorrow.
--- NOTE | 2023-06-01 09:05 | BH.SGPN.GN ---
Behaviors/Verbalizations/Mental Status: [] Eye contact good. Motor activity appropriate. Speech within normal limits. Affect congruent, mood anxious and depressed. Thoughts linear, logical, no signs of hallucinations or delusions. Reviewed client?s symptom tracker, denies SI, plan, or intent as of 06/01/2023. Client Response/Progress/Benefit: [] Client first week in tx. She was receptive of session, attentive and willing to process with group. Identified mental health ?wins? as challenging herself to show up to group today despite temptation to allow her current situation to take over and isolate instead. Noted this was outside of her comfort zone but she felt proud of herself for doing so. Additional win noted as losing 12 pounds after cutting out pop since beginning the IOP tx program. Reports current stressor as ongoing difficulties in managing her anxiety and racing thoughts associated with her ongoing legal and relationship stressors. Shared trying to focus on what is in her control. Client appeared to benefit from group support and encouragement. Recommended continued IOP tx to continue to improve mood stability, promote consistent skill application, and prevent decompensation. Narrative Note: []
--- NOTE | 2023-06-01 09:50 | BH.MDN_ITS ---
Multi-Disciplinary Note Note 30-min Individual: Time Started:: 11:25 Date: 06/01/23 Purpose of session/treatment goals addressed:: To address treatment goal #1 obj #1 and goal #2 obj #1 Eye Contact:: Good Motor Activity:: Slowed (reports significant arthritic pain today) Appearance:: Casual Speech:: Appropriate Mood:: Anxious, Irritable and Dysthymic Affect:: Congruent Thoughts:: Linear, Logical and No evidence of hallucinations/delusions noted Staff Interventions:: thought challenging, motivational interviewing, CBT techniques, strengths perspective and treatment planning Client Response:: Pt entered session agitated and noted struggling with increased relationship stress this morning, stating ?we were up until 4am fighting?. Pt noted her boyfriend continues to disregard her emotions and boundaries by maintaining his affair with another woman. Pt vented for several minutes and discussed rationally knowing the relationship is toxic and that it is unrealistic to believe he will change as he has made no effort to do so. Shared that however emotionally and financially she continues to feel tied to the relationship, especially pending her current legal issues. Pt continues to report that until she knows whether she is going to be facing group home time or probation, she does not want to make any big decisions about the relationship. Reports if she is on probation she would likely need financial assistance to pay the fines accompanying and therefore would need to remain in the relationship. Open to discussing potential financial assistance alternatives such as aid with rent to free up financial resources for her fines. Pt continues to struggle with taking definitive action on leaving her relationship despite several reports stefanie wanting to do so. Often contradicts these statements. Pt has however remained consistent in reports of wanting to improve her focus on herself and getting back engaged with activities outside of the home to instill a greater sense of purpose. Pt completed and submitted her application for the [employer] program. Reports that she has also been trying to focus on what?s in her control and described spending time getting her apartment cleaned and organized in case she is sentenced to group home time next week. Discussed focusing on her resilience and shared spending time reviewing her IOP treatment binder as well. Pt reports that despite significant relationship stressors she feels she is coping with the impending court date and several unknowns in her life in much healthier ways than she would have several months ago. Described trying to avoid self-sabotage behaviors she has previously engaged in and instead remind herself of her morals and values. Plan is to meet with pt Wednesday prior to court to review her coping plan for the day. Risks/Concerns:: None noted. Pt denies suicidal ideation, plan, or intent as of this date 06/01/23. Progress Toward Goals/Plan:: Progress remains variable. Pt has made gains in several areas including improved emotion regulation, increased motivation, reduced irritability and depression, and reduced anxiety. Pt has taken steps to return to the [employer] work readiness program and is noting a desire to continue to improve her willingness to socialize as well as return to the workforce. Pt has several goals for her future; however, her difficulties in maintaining healthy boundaries continue to impede consistency of progress. Pt is in an unhealthy relationship and has insight into the impacts of the relationship on her mental health and functioning. She continues to struggle with remaining in the relationship despite reports of wanting to leave. This reinforces negative core beliefs, self-sabotage, and mood instability. Pt is likely to struggle to continue to make progress engaged in the relationship. Pt will remain in IOP tx to continue to stabilize mood, promote adaptive coping skill application, improve boundaries, and prevent decompensation. Time Stopped:: 11:55
--- NOTE | 2023-06-01 10:10 | BH.SGPN.GN ---
Behaviors/Verbalizations/Mental Status: [] Eye contact is fair. Motor activity is appropriate. Appearance is casual. Speech is Appropriate. Mood is anxious. Affect is constricted. Thoughts are linear and logical. No evidence of psychosis. Client Response/Progress/Benefit: [] Pt was an active participant in group discussions. Attentive during psychoeducation on the 4 communication styles (Passive, Passive-Aggressive, Aggressive, and Assertive) and the obstacles to effective communication. Contributed during interactive discussion on the benefits of communicating effectively which included; having one's needs met, helping others get their needs met, building connection with others, decreases stress and uncertainty, improved relationships, increased trust, and increased understanding of others. Worked well in small group in which pt and peers identified the benefits and disadvantages to the different communication styles. Benefited from increased understanding of communication styles and how these can impact effective communication. Will continue in IOP to improve distress tolerance, increase confidence, decrease negative thought patterns, and prevent decompensation.
--- NOTE | 2023-06-03 09:00 | BH.SGPN.GN ---
Behaviors/Verbalizations/Mental Status: [] Eye contact is good. Motor activity is appropriate. Appearance is casual. Speech is Appropriate. Mood is depressed/irritable. Affect is congruent. Thoughts are linear and logical. No evidence of psychosis. Reviewed daily check in sheet and no reports of suicidal ideations or intent. Client Response/Progress/Benefit: [] Pt was an active participant in group discussions. Attentive. States ? I was in a dark depression for 10 days? which led to isolation and avoidant behaviors. Apologized for inconsistent attendance in IOP. Ruminating extensively on legal issues and is fearful of consequences of her actions. Significant spike in negative thoughts, depression, anxiety, guilt, fear, and regret. This led to thoughts that she will never succeed. Insight on history of self-sabotage cycles. Able to ?change? her perspective on the future through acceptance and preparation for all possible outcomes. She has made the decision to also leave her current unhealthy relationship. Progress noted. Benefited from group support, encouragement, and feedback. Will continue in IOP to prevent decompensation, stabilize mood, and improve functioning Narrative Note: []
--- NOTE | 2023-06-03 10:10 | BH.SGPN.GN ---
Behaviors/Verbalizations/Mental Status: []Pt alert and oriented, appropriate grooming/appearance. Eye contact fair. Motor activity appropriate. Speech within normal limits. Affect congruent, mood anxious. Thoughts linear, logical, no signs of hallucinations or delusions. Client Response/Progress/Benefit: []Pt was an active participant in group discussions. Attentive during psychoeducation. Contributed during interactive discussions in which peers attempted to define crisis. Pt identified examples of potential crisis. Group also worked together to identify unhealthy responses to crisis which included; isolation, self-harm, substance abuse, avoidance, and distraction. Pt identified personal warning signs as isolating, sleeping more, and feeling disconnected. Benefited from increased understanding of crisis and awareness of personal responses to crisis. Pt will continue IOP tx to challenge distorted/negative thoughts, increase healthy coping skills, and prevent decompensation.
--- NOTE | 2023-06-03 11:10 | BH.SGPN.GN ---
Behaviors/Verbalizations/Mental Status: []Eye contact is good. Motor activity is appropriate. Appearance is casual. Speech is Appropriate. Mood is anxious. Affect is constricted. Thoughts are linear and logical. No evidence of psychosis. Client Response/Progress/Benefit: []Pt was an active participant in group discussions. Attentive during psychoeducation. In small group pt along with peers developed an active plan for their crisis warning signs. Pt identified three crisis warning signs as well as an action plan for each. One crisis warning sign was isolating. Pt identified using opposite action, keeping a schedule, and getting outside at least once as coping skills. Benefited from increased awareness of crisis warning signs and by developing crisis intervention strategies. Will continue in IOP to continue working on decreasing anxious avoidance, build confidence, and prevent decompensation. Narrative Note: []
--- NOTE | 2023-06-10 10:10 | BH.SGPN.GN ---
Behaviors/Verbalizations/Mental Status: []Pt alert and oriented, neatly dressed and groomed. Eye contact good. Motor activity appropriate. Speech within normal limits. Affect congruent, mood anxious and proud. Thoughts linear, logical, no signs of hallucinations or delusions. Client Response/Progress/Benefit: [] Pt took notes and contributed occasionally. Attentive during psychoeducation on growth mindset. Participated during the activity. Interactive group discussion on growth mindset in which group verbalized their current fixed mindsets and how they affect their mental health. Pt shared common fixed mindset thoughts they have which included I'm never getting better; I?m not good enough; this is too hard?. These thoughts lead to feeling and staying stuck, not letting supports help, and getting defensive with feedback. Pt stated she had a lot of fixed thoughts about coming to IOP tx because pt did not believe it would help. Pt reflected on how she overcame those thoughts with opposite action and she benefitted from this. Pt benefited from increased awareness of growth mindset and fixed thoughts and how fixed thoughts impact their mental health. Will discharge from IOP tx as pt has accomplished her tx goals and no longer meets criteria for IOP level of care. ? Narrative Note: []
--- NOTE | 2023-06-10 11:10 | BH.SGPN.GN ---
Behaviors/Verbalizations/Mental Status: []Pt alert and oriented, casually dressed and groomed. Eye contact good. Motor activity appropriate. Speech within normal limits. Affect congruent, mood content. Thoughts linear, logical, no signs of hallucinations or delusions. Client Response/Progress/Benefit: [] Pt was an active participant during activity and discussion AEB providing some input when prompted, connecting with peers, as well as taking notes throughout. Pt did well to remain attentive and participate as group worked on identifying characteristics and benefits of adopting a growth mindset. Worked with fellow participants in reframing the example fixed thoughts into growth mindset thoughts. Pt worked on changing own fixed thought of My life will never change to a more growth mindset thought of Things can and will change with continued work on myself and self-love. Receptive of discussing benefits of growth mindset and brainstorming strategies for prompting growth-mindset. Pt appeared to benefit from working in small groups to challenge own thoughts and help peers. Pt will d/c today given progress and continue outpatient tx tx to maintain mood stability and prevent decompensation. Narrative Note: []
--- NOTE | 2023-06-10 13:50 | BH.MDN ---
Multi-Disciplinary Note Note 45-min Individual: Time Started:: 09:13 Date: 06/10/23 Purpose of session/treatment goals addressed:: To address current stressors and discuss strategies to help cope with these stressors. Another goal was to discuss discharge and aftercare. Eye Contact:: Good Motor Activity:: Appropriate Appearance:: Neat and Casual Speech:: Appropriate Mood:: Euthymic Affect:: Congruent Thoughts:: Linear, Logical and No evidence of hallucinations/delusions noted Staff Interventions:: thought challenging, motivational interviewing, CBT techniques, discharge planning, strengths perspective and reviewed DSM-5 Client Response:: Pt responded well to session, open to meeting with therapist. Pt reports that she is much more hopeful since her court date Wednesday. Reports that the sports activities foul judge commended her for taking the initiative to address her mental health and noted that this shows she is actively trying to grow and change. Noted she was sentenced to 2 years of probation rather than senior living time as a result. Described relief and a renewed trust that others are not solely judging her on her past. Pt went on to describe various areas of progress since beginning IOP tx, including improved willingness to be vulnerable, communicating and advocating for her needs to be met with her boyfriend, and setting boundaries. Shared she is looking forward to continuing to work on self-improvement by challenging herself to follow-through with goals of returning to the [employer] work readiness program, as well as pursuing a knee replacement she has been avoiding the past 2 years. Pt recognizes that she can benefit from continuing to work on her self-esteem, trauma work, breaking the cycle of unhealthy relationships, and sitting with uncomfortable emotions rather than avoiding them. Risks/Concerns:: Pt denies any suicidal ideations, plan, or intent as of 06/10/23. Progress Toward Goals/Plan:: Pt will discharge from IOP tx today as pt has accomplished her tx goals. Pt?s overall symptom reduction is 33% since admission with anger decreasing by 67%, depression decreasing by 50%, suicidal thoughts decreasing by 100%, and anxiety decreasing by 17%. Pt has been encouraged to continue with outpatient counseling through [facility]. Pt plans to attend [facility] aftercare. Pt will continue with for medication management. Time Stopped:: 10:00
--- NOTE | 2023-06-10 13:55 | BH.DS ---
Discharge Summary Demographics Date of Admission:: 04/12/23 Discharge Date: 06/10/23 Presenting Problems at Admission:: Pt is a 52 y/o female with dx of Agoraphobia with panic disorder, PTSD, and MDD. No history of psychiatric admissions. Referred to [facility] by her outpatient therapist due to worsening depression, anxiety, and significant isolative/avoidant behaviors. I rarely leave my house. Pt was previously admitted to [facility] in November 2022 however did not successfully complete the program. Decompensation since 02/2023 which resulted in inconsistent use of medications, poor follow-up with mental health treatment, and psychosocial stressors. Exacerbation of mental health and erratic mood led to arrest for theft, which has caused guilt. Endorses poor sleep, poor appetite, low energy, low motivation, no pleasure in activities, hopelessness, worthlessness, irritability, anger outbursts, and erratic moods. Denies active suicidal ideations, plan, or intent. No hx of attempts. Passive thoughts of and survival ambivalence. Reports visions of her BF finding her after she killed herself, stating I just want him to feel hurt like I hurt, however again denies plan or intent. Unhealthy and codependent relationship with BF as he is openly having an affair. Significant anxiety, fear, and difficulty leaving her comfort zone which is her house. Hx of trauma. Limited support. Unable to to identify purpose or meaning in her life. Estranged from most of her family due to pt's substance abuse past and her current relationship with BF (children disapprove). Denies current substance abuse. Denies HI or psychosis. Family hx of completed suicide (paternal uncle), addiction, and mental health issues. Discharge Diagnoses:: 1. 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 PTSD 3. Major depressive disorder, recurrent, severe without psychosis 4. Strong cluster B traits 5. Primary support, work and health issues Reason for Discharge:: Pt has accomplished her tx goals AEB her reduced DSM-5 scores and improve mood. Pt no longer meets criteria for [facility] level of care and will discharge to [facility] aftercare and outpatient counseling and psychiatry. Treatment Progress During Treatment & Response: Pt has responded well to treatment as evidenced by Pt consistently attending IOP sessions and her reduction of DSM-5 scores since admission. Pt was always attentive and receptive to learning during group and individual sessions. Pt actively applied coping skills outside of [facility] and reports overall her mood is improved and she is functioning better than she was several months ago. Pt?s overall symptom reduction is 33% since admission with anger decreasing by 67%, depression decreasing by 50%, suicidal thoughts decreasing by 100%, and anxiety decreasing by 17%. Pt has increased self-confidence in her ability to manage stressors, emotions, and her distorted thinking patterns. Most importantly, Pt has gained self-compassion, become more trauma informed, and increased understanding of her right to set boundaries and practice self-care. Issues Still to be Addressed:: Negative thinking patterns, all or nothing expectations of self and others, consistent self-care, trauma responses and triggers, difficulties trusting, boundary setting and assertive communication, and maintenance of healthy coping skills. Discharge Recommendations/Instructions:: Pt will continue with Dr. Titus for medication management. Pt will continue with [facility] at [facility] for weekly outpatient mental health counseling. Orientation at [facility], 06/13/23, for their job assistance program. Pt does plan to attend [facility] aftercare once a week for maintenance and accountability. Discharge Handout
== END 2023-06-10 12:04 | disposition home or self-care (01) ==
LOC: BHIOP 06:57
PROVIDERS: PCP Family Medicine; Referring Provider Psychiatry & Neurology Psychiatry; Visit Provider Psychiatry & Neurology Psychiatry
DX: F40.01 Agoraphobia with panic disorder (principal); F43.10 Post-traumatic stress disorder, unspecified; F33.2 Major depressive disorder, recurrent severe without psychotic features
CPT/HCPCS: S9480; 90832; 90834; 90837; 90853

== ENCOUNTER 2023-06-17 08:00 | Outpatient (RCR) | payer MEDICARE, MEDICAID, SELFPAY ==
--- NOTE | 2023-06-17 14:00 | BH.COMM ---
Communication Note Communication with Client Communication Note: Patient completed IOP and presents today to start relapse prevention group which meets once weekly (1.5 hours) for 8 weeks. Case discussed with Dr. Sevilla with plan to admit with dx of F40.01
--- NOTE | 2023-06-17 14:06 | BH.MTP ---
Master Treatment Plan Patient Information Program Physician:: Dr. Stephania Sevilla Primary Therapist:: ANITA Alvarado Psychiatric Diagnoses Psychiatric Diagnoses:: 1. 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 PTSD 3. Major depressive disorder, recurrent, severe without psychosis 4. Strong cluster B traits 5. Primary support, work and health issues Diagnosis Code(s):: F40.01 Estimated LOS Estimated LOS (in weeks):: 8 Problem/Goal #1 Problem/Goal #1 Stated Goal:: Client will maintain or see a reduction in symptoms AEB client score on the DSM 5 cross-cutting measure and improve client's daily functioning. Objectives Objective #1: Stated Objective: Client will continue to consistently apply healthy coping skills to maintain progress made in IOP tx. Interventions: Through group therapy, client will review warning signs and triggers as well as healthy coping skills learned in IOP tx to successfully maintain gains while transitioning into outpatient therapy. Discharge Criteria: Client will have accomplished this goal when client's score on the DSM-5 cross-cutting measure has maintained or reduced over a 8 week period. Target Date: 08/12/23 Review Date: 07/08/23 Objective #2: Stated Objective: Client will learn and utilize 2-3 maintenance strategies to prevent decompensation from original IOP DSM-5 scores. Interventions: Through group therapy, client will be provided with education on healthy maintenance behaviors, relapse prevention techniques, and healthy coping strategies. Discharge Criteria: Client will have accomplished this goal when can report using at least 2 maintenance skills to prevent decompensation compared to original IOP DSM-5 scores Target Date: 08/12/23 Review Date: 07/08/23
== END 2023-06-20 23:59 ==
LOC: BHOG 08:00
PROVIDERS: PCP Family Medicine; Referring Provider Psychiatry & Neurology Psychiatry; Visit Provider Psychiatry & Neurology Psychiatry
DX: F40.01 Agoraphobia with panic disorder (principal)
CPT/HCPCS: 90853

== ENCOUNTER 2023-06-21 07:13 | Outpatient (RCR) | payer MEDICARE, MEDICAID, SELFPAY ==
--- NOTE | 2023-06-24 14:00 | BH.SGPN.GN ---
Behaviors/Verbalizations/Mental Status: []Pt alert and oriented, casually dressed and groomed. Eye contact good. Motor activity appropriate. Speech within normal limits. Affect congruent, mood content, positive. Thoughts linear, logical, no signs of hallucinations or delusions. Client Response/Progress/Benefit: []Pt responded well to session AEB sharing and listening attentively to others. Pt has been consistent with outpatient mental health appointments and medication compliance. Pt reports using positive self-talk, opposite action, gratitude, and boundary setting to help with managing mental health symptoms. Pt participated in group discussion defining affirmations and why they are important. Pt provided insight throughout clinician?s presentation of tips for writing personal affirmations and wrote their own affirmations, including ?I have value and worth?, ?My feelings matter and deserve to be acknowledged?, and ?I can restart my day at anytime?. Pt appeared to benefit from increased knowledge of affirmation writing skills and creating their own affirmation statements to remind themselves of outside tx environment. Will continue aftercare tx to promote consistent mental health maintenance and prevent decompensation. Narrative Note: []
--- NOTE | 2023-07-15 14:56 | BH.TPR ---
Treatment Plan Review Demographics Date of Admission:: 06/17/23 Date of Treatment Plan Review:: 07/15/23 Admitting Diagnoses:: 1. 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 PTSD 3. Major depressive disorder, recurrent, severe without psychosis 4. Strong cluster B traits 5. Primary support, work and health issues Current Diagnoses:: 1. 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 PTSD 3. Major depressive disorder, recurrent, severe without psychosis 4. Strong cluster B traits 5. Primary support, work and health issues Patient Status Patient's Response to Treatment:: Pt responding well to treatment AEB pt's consistent attendance, active engagement in group discussions, follow up with outpatient providers, and reporting use of skills outside treatment environment. Pt utilizes IOP aftercare to process current stressors, practice giving herself credit for daily accomplishments, continue to work on challenging negative core beliefs and encourage positive self-talk and boundaries, and identify more adaptive coping strategies. Status of Current Problems and Symptoms: Ongoing stressors include maintaining progress made in IOP, stress with physical pain, managing her emotions, and continuing to improve her boundaries and communication within interpersonal relationships. Pt self-reports she has moments of negative thinking, feeling overwhelmed with relationship stress, and depression, but it is still manageable. Progress Problem #1: Problem Name:: Pt will maintain or decrease symptoms from IOP admission data. Status of Goals:: Obj 1 - complete with ongoing work encouraged- Pt has been able to maintain gains made in IOP as pt?s DSM-5 scores are 47% lower than they were at IOP admission. 67% decrease in depressive symptoms and 67% decrease in anxiety when compared to IOP admission scores. Obj 2 - complete with ongoing work encouraged. Pt has been consistently reporting self-care, thought challenging, and using healthy coping skills. She struggles at times with recognizing and challenging negative core beliefs; however, pt is continuing to make consistent strides in better challenging and replacing these thoughts. Team Recommendations:: Recommended client continue IOP aftercare group to show maintenance of progress. Will continue to encourage client to attend regular outpatient counseling and psychiatry appointments as well.
== END 2023-07-20 23:59 | disposition home or self-care (01) ==
LOC: BHOG 07:13
PROVIDERS: PCP Family Medicine; Referring Provider Psychiatry & Neurology Psychiatry; Visit Provider Psychiatry & Neurology Psychiatry
DX: F40.01 Agoraphobia with panic disorder (principal); F43.10 Post-traumatic stress disorder, unspecified; F33.2 Major depressive disorder, recurrent severe without psychotic features; Z79.899 Other long term (current) drug therapy
CPT/HCPCS: 90853

== ENCOUNTER 2023-07-06 12:37 | Emergency (ER) | payer MEDICARE, MEDICAID, SELFPAY ==
[2023-07-06 12:38] VITALS: BP 127/95; PULSE 84; RESP 16; TEMP 36.2; O2SAT 96
--- NOTE | 2023-07-06 14:16 | EDS_ITS ---
HPI HPI - Fall History of Present Illness Chief Complaint: Fall Informant: patient Narrative Narrative: Presents mechanical fall at 1230 coming out of a gas station. There was a mat that was out of place per patient. Fell on her flexed knee right elbow. Her shoulder. No head injuries. Came here afterwards. Dropped off by significant other. Allergies tramadol gabapentin. Able to ambulate. Denies any anticoagulants. No headache or back pain. Denies history of gastric ulcers or kidney injury. PFSH PFSH Medical History Abdominal pain Anxiety Arthritis Back problem Black tarry stools Chest pain Chronic back pain Constipation COPD (chronic obstructive pulmonary disease) Depression Diarrhea History of crack cocaine use Major depressive disorder, recurrent severe without psychotic features Morbid obesity Osteoarthritis of right knee 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 PTSD (post-traumatic stress disorder) Right knee pain Smoking addiction Home Medications albuterol sulfate 90 mcg/actuation aerosol inhaler 2 puff inhalation .q4prn PRN shortness of breath or wheezing 04/14/23 [History Last Taken Unknown] omeprazole 40 mg capsule,delayed release 40 mg PO DAILY 04/14/23 [History Last Taken Unknown] duloxetine 60 mg capsule,delayed release (Cymbalta) 60 mg PO DAILY 30 days #30 caps 06/02/23 [Rx Last Taken Unknown] zolpidem 5 mg tablet (Ambien) 5 mg PO QHS PRN insomnia 30 days #30 tabs 06/02/23 [Rx Last Taken Unknown] acetaminophen 650 mg tablet,extended release (Tylenol Arthritis Pain) 650 mg PO ONCE PRN 06/22/23 [History Last Taken Unknown] cyclobenzaprine 10 mg tablet 10 mg PO HS PRN 06/22/23 [History Last Taken Unknown] hydrocodone-acetaminophen 5-325mg 5mg-325mg 1 tab PO Q6H PRN PRN Pain 3 days #10 TABLETS 07/06/23 [Rx Last Taken Unknown] ibuprofen 600 mg tablet 600 mg PO Q6H PRN PRN pain #20 TABLETS 07/06/23 [Rx Last Taken Unknown] Allergy/AdvReac Type Severity Reaction Status Date / Time tramadol Allergy Itching Verified 07/06/23 12:40 gabapentin AdvReac Nausea Verified 07/06/23 12:40 metronidazole [From Flagyl] AdvReac Upset Verified 07/06/23 12:40 Stomach Family History Father Hypertension Surgical History History of hysterectomy History of tonsillectomy Hx of fusion of cervical spine Social History household members: significant other Smoking Status: Current every day smoker tobacco type: cigarettes alcohol intake: never substance use type: does not use ROS ROS ED Constitutional Constitutional ED: Denies chills, fever(s) or sweats Eyes Eyes: Denies change in vision ENT ENT ED: Denies dysphagia or sore throat Cardiovascular Cardiovascular: Denies chest pain, leg edema, palpitations or racing heartbeat Respiratory/Chest Respiratory/Chest: Denies cough, dyspnea or dyspnea on exertion Gastrointestinal Gastrointestinal: Denies abdominal pain, diarrhea, nausea or vomiting Genitourinary Genitourinary ED: Denies dysuria, hematuria or urinary frequency Musculoskeletal Musculoskeletal: Reports extremity pain and other Details: Right shoulder, right elbow, right knee pain. ; Denies back pain or neck pain Integumentary Reports Abrasions; Denies rash or wounds Neurologic Neurologic: Denies headache(s), paresthesias or weakness EXAM Physical Exam Const Vital Signs: 07/06/23 12:38 07/06/23 14:36 07/06/23 15:41 Temperature 97.2 F L 98 F Temperature Source Temporal Pulse Rate 84 78 Respiratory Rate 16 16 Respiratory Effort Normal Non-Labored Respiratory Depth Normal Respiratory Pattern Normal Blood Pressure 127/95 H 157/97 H Blood Pressure Mean 105 117 Pulse Ox 96 98 Oxygen Delivery Method Room Air Positive well nourished and well developed Constitutional Narrative: GCS 15. General Appearance ED: well developed and NAD HEENT Reports moist mucous membranes normocephalic and atraumatic Eyes PERRL, EOMs intact bilaterally and conjunctivae normal General Eye ED: Yes normal appearance of both eyes Neck full ROM, no lymphadenopathy and supple General: Negative for tenderness Chest Wall inspection of chest normal and palpation of chest normal Chest: Negative for tenderness Resp normal respiratory effort and normal air movement Effort and Inspection: symmetric chest movement; Negative for respiratory distress Cardio regular rate, regular rhythm and no murmurs Peripheral Pulses: pulses 2+ throughout GI normal to inspection, nondistended, normoactive bowel sounds and non-tender Palpation: Negative for guarding or rebound tenderness present Back/Spine no CVA tenderness and no thoracic nor lumbar tenderness Extremity Extremity Narrative: Right upper extremity: There is tender palpation of the AC joint on the right.Deformities of the shoulder. No humeral tenderness. There is tenderness at the olecranon with abrasion. There is a hematoma dorsal aspect proximal forearm. Skin intact. No wrist tenderness. No hand tenderness. Left upper extremity: Full range of motion all tenderness. Lower extremity: Negative logroll. Right knee extensor is intact. There is tender patellar laterally. No deformities. Abrasion infrapatellar. No leg or ankle tenderness. Pulses intact distally. General Extremety ED: Yes tenderness; Negative for edema General Extremity: Negative for edema Neuro oriented x3, CN's II-XII intact bilaterally and no sensory deficits noted Sensorium / Orientation: awake and alert Skin no rashes or lesions noted and no wounds MDM MDM MDM Narrative Medical decision making narrative: Interventions / MDM: Differential diagnosis: Acromioclavicular strain, elbow contusion, knee contusion, abrasions Diagnosis considered but do not suspect: Fracture however x-rays negative. My EKG interpretation: N/A Imaging independently reviewed and interpreted by myself: three-view x-ray right shoulder: No fracture or dislocation. 3 view right elbow: No fracture or dislocation.2 view right knee no fracture. External documents reviewed: N/A Test considered but not ordered:N/A ED course: Patient fall increasing pain. Clinical AC strain. Ibuprofen and [place] ordered for pain control. X-rays ordered for evaluation. X-rays are negative. Shoulder sling for AC strain discussed removal with movement to prevent frozen shoulder. [place] wrap to the elbow and knee. Short prescription for pain control. OARRS report negative. Outpatient follow-up. Re-evaluation: stable Disposition discussed with patient/family/significant other: Patient Case discussed with consulting clinician: N/A This note was generated with [employer] dictation software. It may contain incorrect words, spelling, and punctuation that were not noted in checking the note before signing. Radiography Diagnostic Testing: Clinical Impression(s) from Imaging Studies Elbow X-Ray 07/06/23 14:25 IMPRESSION: Normal x-ray examination of the elbow. Electronically Signed: Bobby Rubio MD at 14:52 EDT , Knee X-Ray 07/06/23 14:25 IMPRESSION: Degenerative arthrosis. Small joint effusion. Electronically Signed: Bobby Rubio MD at 14:50 EDT , Shoulder X-Ray 07/06/23 14:25 IMPRESSION: Normal x-ray examination of the shoulder. Electronically Signed: Bobby Rubio MD at 14:51 EDT , Discharge Plan Triage Chief Complaint: Fall ED Provider: Toño Jones Dx/Rx/DC Orders Clinical Impression: Sprain of acromioclavicular ligament of right shoulder, Contusion of elbow, right, Contusion of knee, right Instructions: ED Sprain AC Joint, ED Contusion, Elbow, ED Contusion, Lower Extremity Prescriptions: New hydrocodone-acetaminophen [hydrocodone-acetaminophen] 5-325 mg tablet 1 tab PO Q6H PRN PRN (Reason: Pain) 3 Days Qty: 10 0RF ibuprofen 600 mg tablet 600 mg PO Q6H PRN PRN (Reason: pain) Qty: 20 0RF No Action cyclobenzaprine 10 mg tablet 10 mg PO HS PRN acetaminophen [Tylenol Arthritis Pain] 650 mg tablet extended release 650 mg PO ONCE PRN omeprazole 40 mg capsule,delayed release(DR/EC) 40 mg PO DAILY Patient Comments: TAKE 1 (ONE) CAPSULE BY MOUTH EVERY DAY. albuterol sulfate 90 mcg/actuation HFA aerosol inhaler 2 puff INHALATION .q4prn PRN (Reason: shortness of breath or wheezing) Patient Comments: Inhale 2 Puffs as instructed every 4 hours as needed for wheezing/shortness of breath. duloxetine [Cymbalta] 60 mg capsule,delayed release(DR/EC) 60 mg PO DAILY 30 Days Qty: 30 1RF zolpidem [Ambien] 5 mg tablet 5 mg PO QHS PRN (Reason: insomnia) 30 Days Qty: 30 0RF Primary Care Provider: Bird Dietrich Referrals: Bird Dietrich MD [Primary Care Provider] - Activity Restrictions/Additional Instructions: Right shoulder x-ray negative. Right elbow x-ray negative. Right knee x-ray negative for fracture. Use sling for comfort remove and move around multiple times a day. Take medications prescribed. Follow-up with your doctor. Disposition Disposition: Home, Self Care Discharge Date/Time: 07/06/23 15:43
[2023-07-06] MEDS: HYDROcodone Bitartrate/Apap 5/325 Tablet PO (14:17)
[2023-07-06] MEDS: Ibuprofen 600 MG Tablet PO (14:17)
--- NOTE | 2023-07-06 14:25 | RAD_ITS ---
STUDY: X-RAY - RIGHT SHOULDER REASON FOR EXAM: Female, 53 years old. Pain following a fall. TECHNIQUE: 3 view(s) of the shoulder. COMPARISON: None. FINDINGS: Normal glenohumeral articulation. Normal acromioclavicular joint. Normal acromion. Normal humeral head and visualized proximal humerus. The soft tissue structures are unremarkable. Normal visualized pulmonary apex. RAD/Shoulder min 2 Views IMPRESSION: Normal x-ray examination of the shoulder. Electronically Signed: Bobby Rubio MD at 14:51 EDT ,
--- NOTE | 2023-07-06 14:25 | RAD_ITS ---
STUDY: X-RAY - RIGHT KNEE REASON FOR EXAM: Female, 53 years old. Pain following a fall. TECHNIQUE: 3 view(s) of the knee. COMPARISON: None. FINDINGS: Normal visualized distal femur. Normal visualized proximal tibia and fibula. Normal proximal tibiofibular articulation. There is severe degenerative arthrosis of the medial femorotibial compartment with severe joint space narrowing. Normal lateral femorotibial compartment. There is severe degenerative arthrosis of the patellofemoral articulation. Small joint effusion. RAD/Knee 3 Views IMPRESSION: Degenerative arthrosis. Small joint effusion. Electronically Signed: Bobby Rubio MD at 14:50 EDT ,
--- NOTE | 2023-07-06 14:25 | RAD_ITS ---
STUDY: X-RAY - RIGHT ELBOW REASON FOR EXAM: Female, 53 years old. Injury TECHNIQUE: 3 view(s) of the elbow. COMPARISON: None. FINDINGS: Normal visualized humerus, radius and ulna. Normal radiocapitellar and ulnotrochlear articulations. The soft tissue structures are unremarkable. RAD/Elbow min 3 Views IMPRESSION: Normal x-ray examination of the elbow. Electronically Signed: Bobby Rubio MD at 14:52 EDT ,
[2023-07-06 15:41] VITALS: BP 157/97; PULSE 78; RESP 16; TEMP 36.6; O2SAT 98
== END 2023-07-06 15:43 | disposition home or self-care (01) ==
PROVIDERS: Emergency Provider Emergency Medicine; PCP Family Medicine; Visit Provider Emergency Medicine
DX: S43.51XA Sprain of right acromioclavicular joint, initial encounter (principal); J44.9 Chronic obstructive pulmonary disease, unspecified; S80.01XA Contusion of right knee, initial encounter; S50.01XA Contusion of right elbow, initial encounter; W18.30XA Fall on same level, unspecified, initial encounter; Y92.524 Gas station as the place of occurrence of the external cause; F41.9 Anxiety disorder, unspecified; F32.A Depression, unspecified; Z90.710 Acquired absence of both cervix and uterus; F17.210 Nicotine dependence, cigarettes, uncomplicated
CPT/HCPCS: 73030; 73080; 73562; 99284

== ENCOUNTER 2023-07-21 06:36 | Outpatient (RCR) | payer MEDICARE, MEDICAID, SELFPAY ==
--- NOTE | 2023-08-05 14:00 | BH.SGPN.GN ---
Behaviors/Verbalizations/Mental Status: []Pt alert and oriented, casually dressed. Eye contact good. Motor activity appropriate. Speech within normal limits. Affect congruent, mood stressed and motivated. Thoughts linear, logical, no signs of hallucinations or delusions. Client Response/Progress/Benefit: []Pt receptive of session, engaged and providing supportive feedback throughout group. Pt reports being consistent with counseling and medication. Pt used many coping skills this week including thought challenging, self-talk, and assertive communication. Pt engaged in the discussion about self-love and participated in the experiential activity that highlighted the acceptance component of self-love. Reports wanting to work on self-love by continuing to focus on her goals and her mental health. Seemed to benefit from reviewing treatment progress and strategies for managing current stressors, as well as learning about how to increase self-love. Pt to continue IOP aftercare tx to promote mood stability, reinforce gains made in IOP, and review coping skills from IOP. Narrative Note: []
--- NOTE | 2023-08-12 14:00 | BH.SGPN.GN ---
Behaviors/Verbalizations/Mental Status: []Pt alert and oriented, casually dressed and groomed. Eye contact good. Motor activity appropriate. Speech within normal limits. Affect congruent, mood content. Thoughts linear, logical, no signs of hallucinations or delusions. Client Response/Progress/Benefit: [] Pt receptive of session, engaged throughout. Pt shared she did not meet with outpatient therapist this past week due to her therapist being on vacation and has been consistent with meds. Reports the coping skills used throughout the week included: radical acceptance, focusing on what's in her control, and positive self-talk. Receptive of discussion on the three components of the Wellness [place] (social, mental health, and physical) and the importance of balancing each of these areas. Pt contributed to the discussion on the variables impacting each area of wellness including: biology, environment, attitude, behavior, technology, and social support network. Completed an assessment reviewing personal wellness in each pillar of the wellness triangle. Identified wanting to work on social wellness by challenging herself to sit with the uncomfortable and go one place she would not usually. Pt seemed to benefit from support from peers and increasing understanding of the relationship between different areas of wellness. Will remain in the aftercare program to maintain gains and prevent decompensation. Narrative Note: []
--- NOTE | 2023-08-31 14:49 | BH.TPR ---
Treatment Plan Review Demographics Date of Treatment Plan Review:: 07/15/23 Admitting Diagnoses:: 1. 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 PTSD 3. Major depressive disorder, recurrent, severe without psychosis 4. Strong cluster B traits 5. Primary support, work and health issues Current Diagnoses:: 1. 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 PTSD 3. Major depressive disorder, recurrent, severe without psychosis 4. Strong cluster B traits 5. Primary support, work and health issues Patient Status Patient's Response to Treatment:: Pt responding well to treatment AEB pt's consistent attendance, active engagement in group discussions, follow up with outpatient providers, and reporting use of skills outside treatment environment. Pt utilizes IOP aftercare to process current stressors, practice giving herself credit for daily accomplishments, continue to work on challenging negative core beliefs and encourage positive self-talk and boundaries, and identify more adaptive coping strategies. Status of Current Problems and Symptoms: Ongoing stressors include maintaining progress made in IOP, stress with physical pain, managing her emotions, and continuing to improve her boundaries and communication within interpersonal relationships. Pt self-reports she has moments of negative thinking, feeling overwhelmed with relationship stress, and depression, but it is still manageable. Progress Problem #1: Problem Name:: Pt will maintain or decrease symptoms from IOP admission data. Status of Goals:: Obj 1 - complete with ongoing work encouraged- Pt has been able to maintain gains made in IOP as pt?s DSM-5 scores are 47% lower than they were at IOP admission. 67% decrease in depressive symptoms and 67% decrease in anxiety when compared to IOP admission scores. Obj 2 - complete with ongoing work encouraged. Pt has been consistently reporting self-care, thought challenging, and using healthy coping skills. She struggles at times with recognizing and challenging negative core beliefs; however, pt is continuing to make consistent strides in better challenging and replacing these thoughts. Team Recommendations:: Recommended client continue IOP aftercare group to show maintenance of progress. Will continue to encourage client to attend regular outpatient counseling and psychiatry appointments as well.
--- NOTE | 2023-08-31 15:00 | BH.DS_ITS ---
Discharge Summary Demographics Date of Admission:: 06/17/23 Discharge Date: 08/12/23 Presenting Problems at Admission:: Client discharged from [facility] tx and transitioned to [facility] aftercare to maintain gains client made in [facility] and to reinforce healthy coping skills. At admission to [facility] aftercare, client reported experiencing mild to moderate symptoms of anxiety, depression, and PTSD. Client was reporting ongoing issues with prioritizing self-care, managing her anxiety related to her ongoing physical health pain, navigating interpersonal relationships, and consistently managing daily stressors. Ongoing difficulties in maintaining consistent with emotion regulation skills, self-compassion, as well as challenging distorted thought patterns. Discharge Diagnoses:: 1. 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 PTSD 3. Major depressive disorder, recurrent, severe without psychosis 4. Strong cluster B traits 5. Primary support, work and health issues Reason for Discharge:: Pt has completed the aftercare program and has met the maximum benefit of aftercare tx. Pt will continue with outpatient counseling and psychiatry for ongoing maintenance. Treatment Progress During Treatment & Response: Pt did well with attendance and remained active in engagement. Pt contributed well during group discussions, often providing insight and supportive feedback. Pt was able to see a reduction of overall sx from [facility] admission to aftercare discharge of 65%, with a 100% reduction in Self-harming thoughts, 67% reduction in irritability, 33% reduction in depression, and 50% reduction in sx of anxiety. Pt reports improved ability to manage daily stressors, communicate boundaries with supports, and challenge distorted thought patterns. Issues Still to be Addressed:: Distorted thoughts and ongoing issues with emotion regulation, negative self-talk, avoidance, ruminations, difficulty setting boundaries and communicating needs when feeling overwhelmed. Discharge Recommendations/Instructions:: Will continue with regularly scheduled appointments with [facility] for counseling and Dr. Titus for medication management as well. Discharge Handout
== END 2023-08-13 06:48 | disposition home or self-care (01) ==
LOC: BHOG 06:36
PROVIDERS: PCP Family Medicine; Referring Provider Psychiatry & Neurology Psychiatry; Visit Provider Psychiatry & Neurology Psychiatry
DX: F40.01 Agoraphobia with panic disorder (principal); F43.10 Post-traumatic stress disorder, unspecified; F33.2 Major depressive disorder, recurrent severe without psychotic features; Z79.899 Other long term (current) drug therapy
CPT/HCPCS: 90853

== ENCOUNTER 2023-07-21 19:18 | Emergency (ER) | payer MEDICARE, MEDICAID, SELFPAY ==
[2023-07-21 19:19] VITALS: BP 118/82; PULSE 92; RESP 15; TEMP 36.1; O2SAT 98
--- NOTE | 2023-07-21 19:45 | RAD_ITS ---
STUDY: X-RAY - RIGHT TIBIA AND FIBULA REASON FOR EXAM: Female, 53 years old. Fall TECHNIQUE: Frontal and lateral view(s) of the tibia and fibula were obtained. COMPARISON: None. FINDINGS: Normal visualized tibia. Normal visualized fibula. There is no demonstrated acute fracture. There is degenerative change of the knee. The soft tissue structures are unremarkable. RAD/Tibia & Fibula 2 Views IMPRESSION: No fracture seen. Electronically Signed: Osmany Woodruff MD at 21:16 EDT ,
[2023-07-21 20:27] VITALS: BMI 42.8
--- NOTE | 2023-07-21 22:11 | US_ITS ---
STUDY: VENOUS DOPPLER ULTRASOUND - RIGHT LOWER EXTREMITY REASON FOR EXAM: Female, 53 years old. Pain and swelling in right leg TECHNIQUE: Ultrasound evaluation of the deep vein system to include iglesias-scale imaging and compression was performed. Iglesias-scale imaging and Doppler sonographic evaluation, including duplex spectral analysis and qualitative color flow sonography, was performed. COMPARISON: None. FINDINGS: Common Femoral Vein: Normal compression, spontaneity and augmentation. Normal color Doppler. Common Femoral Vein/Greater Saphenous Junction: Normal compression, spontaneity and augmentation. Normal color Doppler. Deep Femoral Vein: Normal compression, spontaneity and augmentation. Normal color Doppler. Femoral Proximal: Normal compression, spontaneity and augmentation. Normal color Doppler. Femoral Middle: Normal compression, spontaneity and augmentation. Normal color Doppler. Femoral Distal: Normal compression, spontaneity and augmentation. Normal color Doppler. Popliteal Vein: Normal compression, spontaneity and augmentation. Normal color Doppler. Posterior Tibial Vein: Normal compression, spontaneity and augmentation. Normal color Doppler. Peroneal Vein: Normal compression, spontaneity and augmentation. Normal color Doppler. There is no demonstrated deep venous thrombosis. US/Venous Duplex Imag/Limited/Uni IMPRESSION: Normal venous Doppler ultrasound of the lower extremity. Electronically Signed: Osmany Woodruff MD at 23:36 EDT ,
--- NOTE | 2023-07-21 23:18 | EDS_ITS ---
HPI History of Present Illness Chief Complaint: Lower Extremity Injury Narrative Narrative: 53-year-old female presenting with right leg pain. Has a history of right knee pain and she sees Dr. Everett for this and had an injection last month and the knee pain is actually improved. She states she has a history of pain below the right knee to but since the right knee pain is improved to the lower leg pain seems to be more prominent. She describes it as a week and she has trouble temo ring weight and she has some burning pain that shoots from the lateral aspect of the upper calf down into her ankle. She states that she has been wearing a brace on the right leg and she states that due to history of spinal fracture and debility on the left upper and lower extremity she tends to bear more weight on the right side. Patient denies any new trauma. No history of DVT/PE. He has not had any rashes. She does not have any trouble bending her knee and the actual knee pain is improved PFSH PFSH Medical History Abdominal pain Anxiety Arthritis Back problem Black tarry stools Chest pain Chronic back pain Constipation COPD (chronic obstructive pulmonary disease) Depression Diarrhea History of crack cocaine use Major depressive disorder, recurrent severe without psychotic features Morbid obesity Osteoarthritis of right knee 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 PTSD (post-traumatic stress disorder) Right knee pain Smoking addiction Home Medications albuterol sulfate 90 mcg/actuation aerosol inhaler 2 puff inhalation .q4prn PRN shortness of breath or wheezing 04/14/23 [History Last Taken Unknown] omeprazole 40 mg capsule,delayed release 40 mg PO DAILY 04/14/23 [History Last Taken Unknown] duloxetine 60 mg capsule,delayed release (Cymbalta) 60 mg PO DAILY 30 days #30 caps 06/02/23 [Rx Last Taken Unknown] zolpidem 5 mg tablet (Ambien) 5 mg PO QHS PRN insomnia 30 days #30 tabs 06/02/23 [Rx Last Taken Unknown] acetaminophen 650 mg tablet,extended release (Tylenol Arthritis Pain) 650 mg PO ONCE PRN 06/22/23 [History Last Taken Unknown] cyclobenzaprine 10 mg tablet 10 mg PO HS PRN 06/22/23 [History Last Taken Unknown] hydrocodone-acetaminophen 5-325mg 5mg-325mg 1 tab PO Q6H PRN PRN Pain 3 days #10 TABLETS 07/06/23 [Rx Last Taken Unknown] ibuprofen 600 mg tablet 600 mg PO Q6H PRN PRN pain #20 TABLETS 07/06/23 [Rx Last Taken Unknown] Allergy/AdvReac Type Severity Reaction Status Date / Time tramadol Allergy Itching Verified 07/21/23 19:23 gabapentin AdvReac Nausea Verified 07/21/23 19:23 metronidazole [From Flagyl] AdvReac Upset Verified 07/21/23 19:23 Stomach Family History Father Hypertension Surgical History History of hysterectomy History of tonsillectomy Hx of fusion of cervical spine Social History household members: significant other Smoking Status: Current every day smoker tobacco type: cigarettes alcohol intake: never substance use type: does not use ROS ROS ED Constitutional Constitutional ED: Denies chills, fever(s) or sweats Eyes Eyes: Denies blurry vision or change in vision ENT ENT ED: Denies ear pain or sore throat Cardiovascular Cardiovascular: Denies chest pain, palpitations or racing heartbeat Respiratory/Chest Respiratory/Chest: Denies cough, dyspnea or sputum Gastrointestinal Gastrointestinal: Denies abdominal pain, constipation, diarrhea, nausea or vom iting Genitourinary Genitourinary ED: Denies dysuria, hematuria or urinary frequency Musculoskeletal Musculoskeletal: Reports other Details: Right leg pain ; Denies arthralgias, myalgias or neck pain Integumentary Denies abscess, Abrasions or rash Neurologic Neurologic: Denies headache(s), paresthesias or weakness Psychiatric Psychiatric: Denies anxiety, depression, suicidal ideation or suicidal thoughts Endocrine Endocrinology: Denies polydipsia or polyuria EXAM Physical Exam Const Vital Signs: 07/21/23 19:19 Temperature 97.0 F L Temperature Source Temporal Pulse Rate 92 Respiratory Rate 15 Blood Pressure 118/82 H Blood Pressure Mean 94 Pulse Ox 98 Oxygen Delivery Method Room Air Positive well nourished General Appearance ED: NAD HEENT normocephalic and atraumatic Chest Wall inspection of chest normal Resp normal respiratory effort Cardio regular rate and regular rhythm Extremity Extremity Narrative: Right leg has no tenderness to palpation over the patella. No joint effusion. No ligamentous laxity. Extensor mechanism is intact. No medial lateral joint line tenderness. Tenderness to palpation noted over the fibular head which reproduces the pain she experiencing. Compartments are soft in the right calf. No cords palpated. No rashes. Right foot neurovascular intact brisk cap refill to all 5 toes. Neuro oriented x3 Sensorium / Orientation: alert Motor Exam: strength 5/5 throughout MDM MDM MDM Narrative Medical decision making narrative: Patient presenting with pain in the right lateral calf. 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 When I press on this area does reproduce her pain. Her knee exam is unremarkable. We obtained an x-ray of the tib-fib 2 views on my interpretation no acute fracture or subluxation. No subcutaneous air. We did duplex today to rule out DVT this was negative. 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 She will follow-up with orthopedics. Impression: 1. Peroneal nerve Radiography Diagnostic Testing: Clinical Impression(s) from Imaging Studies Tibia/Fibula X-Ray 07/21/23 19:45 IMPRESSION: No fracture seen. Electronically Signed: Osmany Woodruff MD at 21:16 EDT , Discharge Plan Triage Chief Complaint: Lower Extremity Injury ED Provider: Lyndon Johansen Dx/Rx/DC Orders Instructions: ED Peroneal Nerve Palsy Prescriptions: No Action cyclobenzaprine 10 mg tablet 10 mg PO HS PRN acetaminophen [Tylenol Arthritis Pain] 650 mg tablet extended release 650 mg PO ONCE PRN omeprazole 40 mg capsule,delayed release(DR/EC) 40 mg PO DAILY Patient Comments: TAKE 1 (ONE) CAPSULE BY MOUTH EVERY DAY. albuterol sulfate 90 mcg/actuation HFA aerosol inhaler 2 puff INHALATION .q4prn PRN (Reason: shortness of breath or wheezing) Patient Comments: Inhale 2 Puffs as instructed every 4 hours as needed for wheezing/shortness of breath. hydrocodone-acetaminophen [hydrocodone-acetaminophen] 5-325 mg tablet 1 tab PO Q6H PRN PRN (Reason: Pain) 3 Days Qty: 10 0RF ibuprofen 600 mg tablet 600 mg PO Q6H PRN PRN (Reason: pain) Qty: 20 0RF duloxetine [Cymbalta] 60 mg capsule,delayed release(DR/EC) 60 mg PO DAILY 30 Days Qty: 30 1RF zolpidem [Ambien] 5 mg tablet 5 mg PO QHS PRN (Reason: insomnia) 30 Days Qty: 30 0RF Primary Care Provider: Bird Dietrich Referrals: Bird Dietrich MD [Primary Care Provider] - Disposition Disposition: Home, Self Care
== END 2023-07-21 23:28 | disposition home or self-care (01) ==
PROVIDERS: Emergency Provider Student in an Organized Health Care Education/Training Program; PCP Family Medicine; Visit Provider Student in an Organized Health Care Education/Training Program
DX: M79.661 Pain in right lower leg (principal); J44.9 Chronic obstructive pulmonary disease, unspecified; M54.9 Dorsalgia, unspecified; M25.561 Pain in right knee; G89.29 Other chronic pain; F32.9 Major depressive disorder, single episode, unspecified; F17.210 Nicotine dependence, cigarettes, uncomplicated
CPT/HCPCS: 73590; 93971; 99282

== ENCOUNTER 2023-12-31 14:56 | Emergency (ER) | payer MEDICARE, MEDICAID, SELFPAY ==
[2023-12-31 14:57] VITALS: BP 145/75; PULSE 81; RESP 16; TEMP 36.8; O2SAT 98; BMI 43.4
[2023-12-31 15:00] VITALS: BP 145/73; PULSE 91; RESP 16; O2SAT 95
[2023-12-31 15:19] VITALS: O2SAT 98
--- NOTE | 2023-12-31 15:25 | ED.RN ---
PT BROUGHT IN BY A CO-WORKER WHO WAS ON HER WAY TO PICK HER UP FOR WORK. FRIEND ARRIVED AT HER HOUSE AT 1400 TO FIND PT CRYING AND SHAKEN UP AT THE BOTTOM OF THE STAIR. T SAID SHE DOES NOT REMEMBER FALLING DOWN TO STAIRS OR HOW LONG SHE HAD BEEN THERE. SHE KNOWS SHE WENT TO GO DOWN TO THE STAIRS TO WAIT FOR HER RIDE TO LEAVE FOR WORK. PT PRESENT WITH LEFT SIDED PAIN AND A SMALL LUMP ON THE POSTERIOR PORTION OF HER HEAD. PT IS CRYING AND DISTRAUGHT. SMALL ABRASION TO THE RIGHT FOREARM AND SKINNED LEFT KNEE.
--- NOTE | 2023-12-31 16:04 | ED.RN ---
DR TRAYLOR SEEN PT AND PLACED ORDERS IN FOR UA, IMG, 2 LG BORE ACCESS IV, C-COLLAR, AND CT. WHEN WALKING TO THE ROOM TO FOLLOW ORDERS PT WAS WALKING ACROSS THE BACK RAZA TO USE THE BATHROOM. THIS NURSE ADVISED THE PT I NEEDED A URINE SAMPLE. PT RESPONDED WHY, NO? I ADVISED PT THE DR PUT IN ORDERS FOR A UA AND PROBABLY WANTS TO SEE IF THERE IS BLOOD IN THE URINE FROM THE FALL. PT SCREAMED DAMNIT WAIT! I HANDED HER THE SAMPLE CUP. PT RETURNED TO HER ROOM WHERE I ADVISED HER I WILL NEED TO GET AT LEAST ONE IV RIGHT NOW AND GET THE C-COLLAR ON HER. PT LAID ON HER LEFT SIDE IN THE BED. I ASKED PT TO REPOSITION IN THE BED SO I COULD GET THE COLLAR ON HER. SHE WAS THRASHING AROUND FRUSTRATED THAT I ASKED THIS. I TOLD PT WE COULD JUST WAIT ON THE COLLAR A MOMENT AND GET THE IV GOING. I ASKED THE PT IF THE LEFT SIDE WAS BEST, BECAUSE PT STATED EARLIER HER LEFT HAND IS PARALYSED. PT [place] THEY USUALLY USE HER HAND. I ADVISED PT I WILL TAKE A LOOK HIGHER UP BECAUSE DR TRAYLOR'S ORDER STATE 2 LG BORE AND THAT WE TRY TO GO HIGHER WITH A LARGER IV FOR BEST ACCESS FOR MEDS, CT, FLUIDS, ETC. I PLACED THE TOURNIQUET ON PT'S RIGHT ARM SHE STATED I WANT A DIFFERENT NURSE! I REPLIED, OK I WILL GO SEE WHO IS AVAILABLE, IT MIGHT BE A MINUTE. I ADVISED DR TRAYLOR AND CHARGE NURSE GIGI OF THE ISSUE. GIGI WAS ON HER WAY BACK TO SPEAK WITH THE PT AND HELP, WHEN THEY WERE LEAVING. PT PROCEEDED TO YELL AT ME THAT I THREW ITEMS IN THE ROOM AND HER URINE CUP WAS KNOCKED OVER. WHICH, IN FACT, DID NOT HAPPEN. PT LEFT WITH THE FRIEND/CO-WORKER WHO BROUGHT IN TO THE ED TODAY.
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
== END 2023-12-31 16:14 | disposition left against medical advice (07) ==
LOC: ED 15:47
PROVIDERS: Emergency Provider Emergency Medicine; PCP Family Medicine; Visit Provider Emergency Medicine
DX: S06.9X9A Unspecified intracranial injury with loss of consciousness of unspecified duration, initial encounter (principal); G83.81 Brown-Sequard syndrome; J44.9 Chronic obstructive pulmonary disease, unspecified; S00.03XA Contusion of scalp, initial encounter; W10.9XXA Fall (on) (from) unspecified stairs and steps, initial encounter; S50.11XA Contusion of right forearm, initial encounter; S80.12XA Contusion of left lower leg, initial encounter; S80.11XA Contusion of right lower leg, initial encounter; F17.210 Nicotine dependence, cigarettes, uncomplicated; S60.512A Abrasion of left hand, initial encounter; F32.A Depression, unspecified; F41.9 Anxiety disorder, unspecified; Z90.710 Acquired absence of both cervix and uterus
CPT/HCPCS: 99282

== ENCOUNTER 2025-03-13 13:27 | Emergency (ER) | payer MEDICARE, MEDICAID, SELFPAY ==
[2025-03-13 13:29] VITALS: BP 105/26; PULSE 101; RESP 18; TEMP 36; O2SAT 97; BMI 44.1
--- NOTE | 2025-03-13 13:45 | RAD_ITS ---
PROCEDURE: CHEST PA AND LATERAL 03/13/2025 REASON FOR EXAM: COUGH TECHNIQUE: Procedure Code: RADCXR Modality: DX Procedure: CHEST PA AND LATERAL FINDINGS: No focal consolidation. Bibasilar subsegmental atelectasis. no pleural effusion or pneumothorax. Cardiac silhouette is within normal limits. No acute fractures. RAD/Chest PA and Lateral IMPRESSION: No focal consolidation. Bibasilar subsegmental atelectasis. Reading Location: [facility]
--- NOTE | 2025-03-13 13:49 | ED.VIS.DYS ---
HPI History of Present Illness Chief Complaint: Shortness of Breath Narrative Narrative: Chief complaint and HPI: 54-year-old female with past medical history of COPD presents for evaluation of cough and shortness of breath. Patient states she has been using her home nebulizers, maintenance inhaler, and albuterol with some relief. She states the past several days she has had congestion and cough. Chest tightness but no chest pain. She denies any fever, chills, abdominal pain, nausea, vomiting. Review of systems: See HPI Medications: As listed on the chart Allergies: As listed on the chart PFSH: Per chart Vital signs: As listed on the chart. Reviewed. Physical exam: Gen: A&O x3, NAD Head: Normocephalic, atraumatic Eyes: No sclera icterus, conjunctiva clear ENT: Moist mucous membranes, + congestion Neck: Trachea midline, No JVD CV: RRR, no murmurs, no peripheral edema Resp: Lungs mildly coarse bilaterally with diffuse expiratory wheezing, + cough Musc: Full ROM, no deformity Skin: Warm, dry Neuro: Alert, oriented, grossly intact, sensation intact Psych: Cooperative, appropriate mood and affect [facility] History (Updated 03/13/25 @ 15:[address] Adeel Metzger, DO) Left rib fracture Contusion of left shoulder Left shoulder pain Right shoulder pain Osteoarthritis of right knee Right knee pain Major depressive disorder, recurrent severe without psychotic features 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 PTSD (post-traumatic stress disorder) Black tarry stools Diarrhea Constipation Abdominal pain Anxiety Arthritis Back problem History of crack cocaine use COPD (chronic obstructive pulmonary disease) Smoking addiction Depression Chronic back pain Morbid obesity Chest pain Home Medications ?Medication ?Instructions ?Recorded ?Last Taken ?Type albuterol sulfate 90 mcg/actuation 2 puff inhalation .q4prn PRN 04/14/23 Unknown History aerosol inhaler shortness of breath or wheezing omeprazole 40 mg capsule,delayed 40 mg PO DAILY 04/14/23 Unknown History release duloxetine 60 mg capsule,delayed 60 mg PO DAILY 30 days #30 caps 06/02/23 Unknown Rx release (Cymbalta) zolpidem 5 mg tablet (Ambien) 5 mg PO QHS PRN insomnia 30 days 06/02/23 Unknown Rx #30 tabs benzonatate 100 mg capsule 100 mg PO TID PRN cough 5 days #15 03/13/25 Unknown Rx caps prednisone 20 mg tablet 60 mg (3 x 20 mg) PO DAILY 5 days 03/13/25 Unknown Rx #15 TABLETS Allergy/AdvReac Type Severity Reaction Status Date / Time tramadol Allergy Itching Verified 03/13/25 13:30 gabapentin AdvReac Nausea Verified 03/13/25 13:30 metronidazole (From Flagyl) AdvReac Upset Verified 03/13/25 13:30 Stomach Family History (Updated 03/13/25 @ 13:44 by Lucy Colmenares) Father Hypertension Maternal Grandfather Cancer Grandfather Cancer Surgical History Hx of fusion of cervical spine History of tonsillectomy History of hysterectomy Social History household members: significant other Smoking Status: Current every day smoker tobacco type: cigarettes alcohol intake: never substance use type: does not use EXAM Physical Exam Const Vital Signs: 03/13/25 13:29 03/13/25 14:03 03/13/25 15:28 Temperature 96.8 F L Temperature Source Temporal Pulse Rate 101 H 98 89 Respiratory Rate 18 16 26 H Respiratory Effort Respiratory Pattern Blood Pressure 105/26 L 135/92 H Blood Pressure Mean 52 106 Pulse Ox 97 97 Oxygen Delivery Method Room Air Room Air 03/13/25 15:32 03/13/25 15:59 Temperature 98 F Temperature Source Pulse Rate 86 Respiratory Rate 18 Respiratory Effort Short of Breath Respiratory Pattern Tachypnea Blood Pressure 114/98 H Blood Pressure Mean 103 Pulse Ox 98 Oxygen Delivery Method Room Air MDM MDM MDM Narrative Medical decision making narrative: 54-year-old female with past medical history of COPD presents for evaluation of cough and shortness of breath. Patient states she has been using her home nebulizers, maintenance inhaler, and albuterol with some relief. She states the past several days she has had congestion and cough. Differential diagnosis includes but is not limited to COPD exacerbation, viral illness, pneumonia. NS bolus, Solu-Medrol, DuoNebs ordered. Respiratory workup ordered. CBC unremarkable without leukocytosis or anemia. BMP unremarkable. Patient has elevated glucose here in the emergency department, she has a follow-up with this outpatient. COVID, flu, RSV negative. On reevaluation, patient's wheezing has improved. Her vitals are stable. She is not hypoxic. Patient symptoms are likely secondary to COPD exacerbation from viral syndrome. Recommend continuing her home inhalers and DuoNebs. Will place her on prednisone. Chantel Barrios for cough. Follow-up with primary care physician. Return precautions explained. She confirmed understand the plan. Patient will discharge home. Diagnostic: Interpreted by me/EM physician: Chest x-ray without pneumonia, effusion, cardiomegaly, pneumothorax. Radiology in agreement. Bibasilar subsegmental atelectasis. Impression: 1. COPD exacerbation 2. Viral syndrome Lab Data Labs: Laboratory Results - last 24 hr 03/13/25 14:17 WBC 9.4 RBC 4.28 Hgb 13.3 Hct 39.3 MCV 91.8 MCH 31.1 MCHC 33.8 RDW Std Deviation 44.2 H RDW Coeff of Brigid 13.2 Plt Count 289 MPV 10.3 Immature Gran % (Auto) 0.700 Neut % (Auto) 67.0 Lymph % (Auto) 24.0 [place] % (Auto) 4.7 Eos % (Auto) 2.9 Baso % (Auto) 0.7 Absolute Neuts (auto) 6.3 Absolute Lymphs (auto) 2.24 Nucleated RBC % 0 Sodium 140 Potassium 3.9 Chloride 106 Carbon Dioxide 20.8 Anion Gap 13 BUN 15 Creatinine 0.75 Estim Creat Clear Calc 105.10 Est GFR (MDRD) Non-Af 93 BUN/Creatinine Ratio 19.4 Glucose 210 H Calcium 9.1 Radiography Diagnostic Testing: Clinical Impression(s) from Imaging Studies Chest X-Ray 03/13/25 13:45 IMPRESSION: No focal consolidation. Bibasilar subsegmental atelectasis. Reading Location: [facility] Discharge Plan Triage Chief Complaint: Shortness of Breath ED Provider: Adeel Metzger Dx/Rx/DC Orders Clinical Impression: COPD exacerbation Instructions: ED COPD Flare Prescriptions: New prednisone 20 mg tablet 60 mg PO DAILY 5 Days Qty: 15 0RF Rx Instructions: Start on 03/14/2025 benzonatate 100 mg capsule 100 mg PO TID PRN (Reason: cough) 5 Days Qty: 15 0RF No Action omeprazole 40 mg capsule,delayed release(DR/EC) 40 mg PO DAILY Patient Comments: TAKE 1 (ONE) CAPSULE BY MOUTH EVERY DAY. albuterol sulfate 90 mcg/actuation HFA aerosol inhaler 2 puff INHALATION .q4prn PRN (Reason: shortness of breath or wheezing) Patient Comments: Inhale 2 Puffs as instructed every 4 hours as needed for wheezing/shortness of breath. duloxetine [Cymbalta] 60 mg capsule,delayed release(DR/EC) 60 mg PO DAILY 30 Days Qty: 30 1RF zolpidem [Ambien] 5 mg tablet 5 mg PO QHS PRN (Reason: insomnia) 30 Days Qty: 30 0RF Primary Care Provider: Bird Dietrich Referrals: Bird Dietrich MD [Primary Care Provider, Medical] - 3-5 Days Activity Restrictions/Additional Instructions: Continue your home medications including your nebulizers. Start your oral steroid tomorrow. Cough suppressant as needed. [id number] medication as needed. Return back to ED if symptoms change or worsen. Follow-up with your primary care physician. Print Language: Hong Konger Disposition Disposition: Home, Self Care Discharge Date/Time: 03/13/25 16:01
[2025-03-13 14:03] VITALS: PULSE 98; RESP 16
[2025-03-13 14:21] LABS: Hematocrit 39.3 % (37-47); Hemoglobin 13.3 g/dL (12.0-15.0); Immature Granulocytes Count 0.070 X10^3/uL (0.0-0.0); Mean Corp Hgb Conc 33.8 g/dL (32-36); Mean Corpuscular Volume 91.8 fL (81-99); Mean Platelet Vol. 10.3 fl (6.2-12.0); NRBC Flagged by Analyzer 0 % (0-5); Platelet Count 289 K/mm3 (150-450); RBC Distribution Width CV 13.2 % (11.6-14.6); RBC Distribution Width SD 44.2 fl (35.1-43.9); Red Blood Count 4.28 M/mm3 (4.2-5.4); White Blood Count 9.4 K/mm3 (4.4-11.0)
[2025-03-13] MEDS: 0.9% Normal Saline (500mL Bag) 500 ML 999 ML IV (14:30)
[2025-03-13 14:46] LABS: Anion Gap 13 (7-18); BUN 15 mg/dL (4-19); BUN/Creat Ratio 19.4 RATIO (10-20); Calcium,Total 9.1 mg/dL (7.6-11.0); Carbon Dioxide 20.8 mmol/L (20.0-29.0); Chloride 106 mmol/L (96-106); Estimated Creatinine Clearance 105.10 ml/min (50-250); Glucose 210 mg/dL (70-99); Potassium 3.9 mmol/L (3.5-5.1)
[2025-03-13 15:28] VITALS: BP 135/92; PULSE 89; RESP 26; O2SAT 97
[2025-03-13 15:32] VITALS: O2SAT 97
[2025-03-13 15:59] VITALS: BP 114/98; PULSE 86; RESP 18; TEMP 36.6; O2SAT 98
== END 2025-03-13 16:01 | disposition home or self-care (01) ==
PROVIDERS: Emergency Provider Surgery; PCP Family Medicine; Visit Provider Surgery
DX: J44.1 Chronic obstructive pulmonary disease with (acute) exacerbation (principal); B34.9 Viral infection, unspecified; Z90.710 Acquired absence of both cervix and uterus; F17.210 Nicotine dependence, cigarettes, uncomplicated; R07.89 Other chest pain; F32.9 Major depressive disorder, single episode, unspecified; F40.01 Agoraphobia with panic disorder
CPT/HCPCS: 71046; 80048; 85025; 87631; 94640; 96361; 96374; 96375; 99284; A4216; J2405